=== PATIENT | female | born 1930 | race Caucasian/White ===

== ENCOUNTER → 2016-08-20 | Outpatient (CLI) | payer OTHER ==
[~2016-08-20] MED LIST: ACET-1175 PO; DONE1TAB26 PO; MIRA100T PO; POTA-74 PO; TRIATAB3 PO
[2016-08-20 18:36] LABS: BLOOD UREA NITROGEN 10 mg/dl (7-18); BUN/CREATININE RATIO 12.1 (10-20); CALCIUM 8.6 mg/dl (8.5-10.1); CARBON DIOXIDE 30 mmol/L (21-32); CHLORIDE 107 mmol/L (98-107); CREATININE 0.86 mg/dl (0.60-1.20); GLUCOSE 101 mg/dl (70-99); POTASSIUM 3.8 mmol/L (3.5-5.1); SODIUM 141 mmol/L (136-145)
== END | disposition home or self-care (01) ==
LOC: C.LABPVFM 14:12
PROVIDERS: ATTEND Nurse Practitioner
DX: I10 Essential (primary) hypertension (principal); L30.9 Dermatitis, unspecified

== ENCOUNTER → 2017-02-16 | Outpatient (CLI) | payer OTHER ==
[2017-02-16 17:45] LABS: BLOOD UREA NITROGEN 9 mg/dl (7-18); BUN/CREATININE RATIO 10.3 (10-20); CALCIUM 8.8 mg/dl (8.5-10.1); CARBON DIOXIDE 28 mmol/L (21-32); CHLORIDE 105 mmol/L (98-107); GLUCOSE 93 mg/dl (70-99); POTASSIUM 3.7 mmol/L (3.5-5.1); SODIUM 140 mmol/L (136-145)
== END | disposition home or self-care (01) ==
LOC: C.LABPVFM 10:21
PROVIDERS: ATTEND Nurse Practitioner
DX: I10 Essential (primary) hypertension (principal)

== ENCOUNTER → 2017-10-22 | Outpatient (CLI) | payer OTHER ==
--- NOTE | 2017-10-22 14:03 | DIAGNOSTIC IMAGING REPORT ---
L KNEE 2 VIEWS ROUTINE CLINICAL HISTORY: LEFT KNEE PAIN COMPARISON: None. DISCUSSION: No acute fractures or dislocations are visualized. There are mild osteoarthritic changes with mild medial joint compartment narrowing. There are no erosive or destructive changes. The bones are mildly osteopenic. There is an equivocal trace joint effusion. IMPRESSION: 1. Osteopenia 2. Mild degenerative change 3. No fractures identified Electronically signed by: Luciano Ramírez M.D. 10/22/2017 2:02 PM Dictated Date/Time: 10/22/2017 2:01 PM
== END | disposition home or self-care (01) ==
LOC: C.RADPV 13:36
PROVIDERS: ATTEND Family Medicine
DX: M25.562 Pain in left knee (principal); M85.862 Other specified disorders of bone density and structure, left lower leg

== ENCOUNTER 2018-04-23 15:18 | Inpatient (IN) ==
[2018-04-23] MEDS ORDERED: SODIUM CHLORIDE 0.9% 1000ML 1,000 ML IV SCH (15:30)
[2018-04-23 15:51] LABS: Basophils # (auto) 0.04 K/uL (0-0.2); Basophils % (auto) 0.5 %; Eosinophils # (auto) 0.07 K/uL (0-0.5); Hematocrit (blood only) 38.9 % (37-47); Hemoglobin 12.2 g/dL (12.0-16.0); Immature Granulocytes # (auto) 0.02 K/uL (0.00-0.02); Immature Granulocytes % (auto) 0.3 %; Lymphocytes # (auto) 1.92 K/uL (1.2-3.4); Lymphocytes % (auto) 26.1 %; Mean Corpuscular Hgb Conc 31.4 g/dL (32-36); Mean Corpuscular Volume 83.3 fL (80-100); Mean Platelet Volume 9.1 fL (7.4-10.4); Monocytes # (auto) 0.58 K/uL (0.11-0.59); Monocytes % (auto) 7.9 %; Neutrophils # (auto) 4.73 K/uL (1.4-6.5); Neutrophils % (auto) 64.2 %; Platelet Count 205 K/uL (130-400); RDW Coefficient of Variation 27.7 % (11.5-14.5); RDW Standard Deviation 79.2 fL (36.4-46.3); Red Blood Count 4.67 M/uL (4.2-5.4); White Blood Count 7.36 K/uL (4.8-10.8)
[2018-04-23] MEDS: MoRPHine SULFATE 2 MG/ML CARP IV PRN ×2 (15:51→16:57)
[2018-04-23 15:59] LABS: Partial Thromboplastin Ratio 0.9
[2018-04-23 16:07] LABS: Albumin Level 3.3 gm/dl (3.4-5.0); BUN Creatinine Ratio 14.8 (10-20); Calcium 8.7 mg/dl (8.5-10.1); Creatinine Clr Calc Pharmacy 48.4 ml/min; Est GFR (African American) 77.9; Est GFR (Non-African American) 67.2; Potassium 3.6 mmol/L (3.5-5.1)
[2018-04-23 16:09] LABS: Albumin Globulin Ratio 0.9 (0.9-2); Bilirubin,Total 0.4 mg/dl (0.2-1); Globulin 3.7 gm/dl (2.5-4.0)
[2018-04-23 16:13] LABS: Anisocytosis Present; Hypochromasia Present
--- NOTE | 2018-04-23 16:27 | XRay Report ---
XR hip RT 2-3V w pelvis HISTORY: 87 years-old Female fall, pain acute right hip pain status post fall COMPARISON: Pelvis radiographs 02/15/2018 TECHNIQUE: AP view of the pelvis with 2 views of the right hip FINDINGS: Limited study secondary to patient obesity and positioning. There are 3 cannulated screws noted about the left femoral neck. Demineralized appearance of the bones. There is acute fracture about the righ t femoral neck which appears to be transcervical with mild impaction. Moderate soft tissue swelling a bout the right hip. No acute fracture identified about the right hemipelvis. No associated dislocatio n. IMPRESSION: Acute transcervical fracture of the right femur with mild impaction. The above report was generated using voice recognition software. It may contain grammatical, syntax o r spelling errors. Electronically signed by: Cody Melara M.D. 04/23/2018 4:26 PM
--- NOTE | 2018-04-23 16:33 | XRay Report ---
XR chest 1V portable HISTORY: 87 years-old Female fall acute chest trauma status post fall. Acute atypical chest pain COMPARISON: Chest radiograph and CT abdomen and pelvis 02/23/2018 TECHNIQUE: Portable AP view of the chest FINDINGS: Cardiac silhouette is enlarged, unchanged. Moderate to large hiatal hernia. Calcification the thoraci c aortic arch. There is no pneumothorax, pleural effusion, focal airspace consolidation or overt pulm onary edema. Degenerative changes of the shoulders and spine. IMPRESSION: 1. Cardiomegaly without acute process. 2. Moderate to large hiatal hernia. The above report was generated using voice recognition software. It may contain grammatical, syntax o r spelling errors. Electronically signed by: Cody Melara M.D. 04/23/2018 4:32 PM
[2018-04-23 17:28] LABS: Appearance Urine Cloudy (Clear); Bacteria Urine Automated 4+ (Negative); Bilirubin Urine Negative (Negative); Color Urine Yellow; Epithelial Cell Urine Auto 20-30 /lpf (0-5); Glucose Urine UA Negative (Negative); Ketones Urine Negative (Negative); Leukocyte Esterase Urine 3+ (Negative); Nitrite Urine Positive (Negative); Protein Urine Negative (Negative); Specific Gravity Urine 1.018 (1.000-1.030); Urobilinogen Urine Negative (Negative); WBC Urine Automated >30 /hpf (0-5); pH Urine 5.5 (4.5-7.5)
--- NOTE | 2018-04-23 17:49 | History & Physical Report ---
Date of Service April 23, 2018 Assessment & Plan (1) Closed right hip fracture: This patient is an 87-year-old female with a history of HTN, hiatal hernia , chronic diarrhea, impaired fasting glucose, AAA, lone atrial fibrillation, and moderate-severe Alzheimer's dementia who presents to the ER after sustaining a fall in the bathroom which resulted in a right hip fracture. -Admit to medical/surgical floor -Discussed the case with the patient's , son, and orthopedic surgeon front desk clerk. and son in agreement that they only want her to have surgery if it will allow her to be able to walk with a walker again in a timely fashion. Orthopedic surgeon will come and speak with the family in the morning and review the case. -Typed and cross on admission, hemoglobin is stable at this time, will monitor CBC in the morning -Pain control with morphine as needed, Tylenol as needed -Bedrest -DVT prophylaxis with SCDs for now -Orthopedic surgery consulted-appreciate management (2) Chronic diarrhea: Doing very well on as needed noe stable-we will continue this (3) Impaired fasting glucose: Very mild, hemoglobin A1c 5.3% in 01/2018 -No need for Accu-Cheks (4) HTN (hypertension), benign: Blood pressures mildly elevated here secondary to pain and anxiety most likely -Continue home doses of Toprol XL 25 mill grams p.o. twice daily and losartan 100 mg p.o. every morning -Continue to monitor (5) AAA (abdominal aortic aneurysm): 3.1 cm on imaging previously -Can be followed as an outpatient if desired (6) Hyperlipidemia: Noted as a diagnosis but not on medication for this at this time (7) Hiatal hernia: Has a very large hiatal hernia but does not seem to cause her symptoms -No need for treatment at this point (8) Anemia: Upon admission in January, had severe iron deficiency anemia and required transfusion. She has been on ferrous sulfate ever since receiving those transfusions and her hemoglobin is much improved here at 12. -Follow CBC in case of acute blood loss from fracture as above (9) Alzheimer's disease: Moderate-severe in nature. Has been reports she has been sundowning a lot at home and has gotten more "defiant" in the last several weeks. She does eat well and he does get her to take her pills. PCP recently prescribed mirtazapine-he gave her 1 dose of this and reports that she had an opposite reaction to what he thought it would do-she became even more agitated -Would discontinue mirtazapine permanently -Consider using low doses of haloperidol p.o. as needed if becomes a danger to herself while hospitalized (10) Lone atrial fibrillation: Had a brief episode of atrial fibrillation during her last admission in the perioperative period that resolved on its own -She has been on metoprolol ever since She is in a normal sinus rhythm on admission ECG here -Monitor for recurrence but no need for telemetry monitoring at this time -No need for anticoagulation given fall risk and recent episode (11) DVT prophylaxis: SCDs Disposition-admit to medical/surgical floor and await orthopedic consultation Case management consulted as she will need placement- has been working on getting her into [facility] anyway prior to this hip fracture. DNR/DNI History of Present Illness Chief Complaint: Fall, hip pain Primary Care Provider: Yonny Cullen MD This patient is an 87-year-old female with a history of HTN, hiatal hernia, chronic diarrhea, impaired fasting glucose, AAA, lone atrial fibrillation, and moderate-severe Alzheimer's dementia who presents to the ER after sustaining a fall in the bathroom which resulted in a right hip fracture. Her is present at the bedside and gives the history as the patient has significant dementia and cannot give a history. He stated he helped her onto the toilet and she does get around with assistance with her walker. He went across the [place]jias to put dishes in the hand shoes sewer and then he heard her fall. She tried to get off the toilet and walk to her walker herself. They do not think she sustained any other injuries. Patient is unable to tell me if she has any headache, chest pain, shortness of breath, or any other joint pains. The patient was just admitted here for a fall with resulting in a left hip fracture and underwent repair at the end of 01/2018. She then went to [facility] for rehab and came home on 03/18/18. In the ER, she was found to have a transcervical fracture with impaction of the right hip. Her labs were otherwise within normal limits. ECG showed a lot of artifact she would not hold still, but appears to be normal sinus rhythm without ischemic changes. She will be admitted for right hip fracture. Allergies Allergy/AdvReac Type Severity Reaction Status Date / Time Sulfa (Sulfonamide Allergy Intermediate Hives Verified 04/23/18 17:26 Antibiotics) amoxicillin Allergy Unknown RASH, Verified 04/23/18 17:26 SWELLING - FACE & NECK Penicillins Allergy Unknown RASH, Verified 04/23/18 17:26 SWELLING Home Medications Home Medications Medication Instructions Recorded Confirmed Type colestipol 1 g PO BID 02/23/18 04/23/18 History hydrocolloid dressing [DuoDERM 1 dose TOPICAL UD 02/23/18 04/23/18 History Hydroactive] losartan 100 mg PO DAILY 02/23/18 04/23/18 History triamcinolone acetonide 1 applic TOPICAL TID 02/23/18 04/23/18 History acetaminophen [Tylenol] 325 mg PO Q6H PRN 04/23/18 04/23/18 History cholecalciferol (vitamin D3) 50,000 units PO WK 04/23/18 04/23/18 History ferrous sulfate 325 mg PO BID 04/23/18 04/23/18 History metoprolol succinate 25 mg PO BID 04/23/18 04/23/18 History mirtazapine 7.5 mg PO HS 04/23/18 04/23/18 History potassium chloride 10 meq PO BID 04/23/18 04/23/18 History Past Med/Surg History Medical History Rosacea Impaired fasting glucose History of uterine cancer Urinary incontinence HTN (hypertension), benign Hyperlipidemia AAA (abdominal aortic aneurysm) Infrarenal, 3.5cm Hiatal hernia Per CT scan significant portion of stomach in chest Anemia Alzheimer's disease (Chronic) Lone atrial fibrillation Chronic diarrhea Surgical History History of hysterectomy Status post-operative repair of closed fracture of left hip Family History Other Family history non-contributory Social History marital status: Current Living Situation: Spouse Feels Safe at Home: Yes Smoking Status: Never smoker Second Hand Exposure: No Hx Alcohol Use: No Hx Substance Use: No Beliefs That Will Affect Care: None Preferred Language: Azeri Review of Systems Unobtainable due to cognitive status Physical Exam 2 Vital Signs (Past 24 Hours): Last Vital Signs Pulse 100 H 04/23/18 17:13 Resp 24 04/23/18 17:13 BP 188/100 H 04/23/18 17:13 Pulse Ox 92 04/23/18 17:13 Constitutional: WD/WN, vitals as above (Appears tearful, confused) Eyes: PERRL, conjunctivae normal, anicteric sclerae ENMT: external ear and nose normal, oropharynx normal Neck: trachea midline, no thyromegaly Respiratory: normal respiratory effort, lungs clear to auscultation Cardiovascular: RRR, no murmur, no edema Gastrointestinal (Abdomen): normal bowel sounds, soft, nontender, no hepatosplenomegaly Musculoskeletal: Extremities: + extremities abnormal to inspection (Right hip with mild edema, positive tenderness to palpation), no cyanosis and no clubbing Otherwise, no tenderness to palpation over shoulders, elbows, wrists and hands, left hip, knees, ankles, and feet, no effusions or ecchymosis Skin: no rashes, warm and dry Neurologic: moves all extremities and awake; no focal motor deficits Psychiatric: Orientation: alert; + not oriented to person, + not oriented to place and + not oriented to time Eye Contact: + fair eye contact Affect: + flat affect Insight: + severely impaired insight Genitourinary: Nuñez catheter in place Results & Data Laboratory Results 04/23/18 04/23/18 04/23/18 Range/Units 17:09 16:11 15:42 WBC (4.8-10.8) K/uL RBC (4.2-5.4) M/uL Hgb (12.0-16.0) g/dL Hct (37-47) % MCV (80-100) fL MCH (25-34) pg MCHC (32-36) g/dL RDW Std Deviation (36.4-46.3) fL RDW Coeff of August (11.5-14.5) % Plt Count (130-400) K/uL MPV (7.4-10.4) fL Immature Gran % (Auto) % Neut % (Auto) % Lymph % (Auto) % [place] % (Auto) % Eos % (Auto) % Baso % (Auto) % Immature Gran # (Auto) (0.00-0.02) K/uL Neut # (Auto) (1.4-6.5) K/uL Lymph # (Auto) (1.2-3.4) K/uL [place] # (Auto) (0.11-0.59) K/uL Eos # (Auto) (0-0.5) K/uL Baso # (Auto) (0-0.2) K/uL Hypochromasia Anisocytosis PT (9.0-12.0) Seconds INR (0.9-1.1) APTT (21.0-31.0) Seconds PTT Ratio Sodium 140 (136-145) mmol/L Potassium 3.6 (3.5-5.1) mmol/L Chloride 108 H (98-107) mmol/L Carbon Dioxide 32 (21-32) mmol/L Anion Gap 0 L (3-11) BUN 12 (7-18) mg/dl Creatinine 0.80 (0.6-1.2) mg/dl Est Cr Clr Drug Dosing 48.4 ml/min Est GFR ( Amer) 77.9 Est GFR (Non-Af Amer) 67.2 BUN/Creatinine Ratio 14.8 (10-20) Glucose 101 H (70-99) mg/dl Calcium 8.7 (8.5-10.1) mg/dl Total Bilirubin 0.4 (0.2-1) mg/dl AST 19 (15-37) U/L ALT 18 (12-78) U/L Alkaline Phosphatase 100 (45-117) U/L Total Protein 7.0 (6.4-8.2) gm/dl Albumin 3.3 L (3.4-5.0) gm/dl Globulin 3.7 (2.5-4.0) gm/dl Albumin/Globulin Ratio 0.9 (0.9-2) Urine Color Yellow Urine Appearance Cloudy H (Clear) Urine pH 5.5 (4.5-7.5) Ur Specific [place] 1.018 (1.000-1.030) Urine Protein Negative (Negative) Urine Glucose (UA) Negative (Negative) Urine Ketones Negative (Negative) Urine Blood 2+ H (Negative) Urine Nitrite Positive H (Negative) Urine Bilirubin Negative (Negative) Urine Urobilinogen Negative (Negative) Ur Leukocyte Esterase 3+ H (Negative) Urine WBC (Auto) >30 H (0-5) /hpf Urine RBC (Auto) 10-30 H (0-4) /hpf U Hyaline Cast (Auto) 1-5 (0-5) /lpf U Epithel Cells (Auto) 20-30 H (0-5) /lpf Urine Bacteria (Auto) 4+ H (Negative) Blood Type O Positive Antibody Screen NEGATIVE 04/23/18 04/23/18 Range/Units 15:42 15:42 WBC 7.36 (4.8-10.8) K/uL RBC 4.67 (4.2-5.4) M/uL Hgb 12.2 (12.0-16.0) g/dL Hct 38.9 (37-47) % MCV 83.3 (80-100) fL MCH 26.1 (25-34) pg MCHC 31.4 L (32-36) g/dL RDW Std Deviation 79.2 H (36.4-46.3) fL RDW Coeff of August 27.7 H (11.5-14.5) % Plt Count 205 (130-400) K/uL MPV 9.1 (7.4-10.4) fL Immature Gran % (Auto) 0.3 % Neut % (Auto) 64.2 % Lymph % (Auto) 26.1 % [place] % (Auto) 7.9 % Eos % (Auto) 1.0 % Baso % (Auto) 0.5 % Immature Gran # (Auto) 0.02 (0.00-0.02) K/uL Neut # (Auto) 4.73 (1.4-6.5) K/uL Lymph # (Auto) 1.92 (1.2-3.4) K/uL [place] # (Auto) 0.58 (0.11-0.59) K/uL Eos # (Auto) 0.07 (0-0.5) K/uL Baso # (Auto) 0.04 (0-0.2) K/uL Hypochromasia Present Anisocytosis Present PT 10.0 (9.0-12.0) Seconds INR 1.0 (0.9-1.1) APTT 24.0 (21.0-31.0) Seconds PTT Ratio 0.9 Sodium (136-145) mmol/L Potassium (3.5-5.1) mmol/L Chloride (98-107) mmol/L Carbon Dioxide (21-32) mmol/L Anion Gap (3-11) BUN (7-18) mg/dl Creatinine (0.6-1.2) mg/dl Est Cr Clr Drug Dosing ml/min Est GFR ( Amer) Est GFR (Non-Af Amer) BUN/Creatinine Ratio (10-20) Glucose (70-99) mg/dl Calcium (8.5-10.1) mg/dl Total Bilirubin (0.2-1) mg/dl AST (15-37) U/L ALT (12-78) U/L Alkaline Phosphatase (45-117) U/L Total Protein (6.4-8.2) gm/dl Albumin (3.4-5.0) gm/dl Globulin (2.5-4.0) gm/dl Albumin/Globulin Ratio (0.9-2) Urine Color Urine Appearance (Clear) Urine pH (4.5-7.5) Ur Specific [place] (1.000-1.030) Urine Protein (Negative) Urine Glucose (UA) (Negative) Urine Ketones (Negative) Urine Blood (Negative) Urine Nitrite (Negative) Urine Bilirubin (Negative) Urine Urobilinogen (Negative) Ur Leukocyte Esterase (Negative) Urine WBC (Auto) (0-5) /hpf Urine RBC (Auto) (0-4) /hpf U Hyaline Cast (Auto) (0-5) /lpf U Epithel Cells (Auto) (0-5) /lpf Urine Bacteria (Auto) (Negative) Blood Type Antibody Screen Diagnostic Findings Hip/pelvis x-ray personally reviewed by me and agree with the following report: XR hip RT 2-3V w pelvis HISTORY: 87 years-old Female fall, pain acute right hip pain status post fall COMPARISON: Pelvis radiographs 02/15/2018 TECHNIQUE: AP view of the pelvis with 2 views of the right hip FINDINGS: Limited study secondary to patient obesity and positioning. There are 3 cannulated screws noted about the left femoral neck. Demineralized appearance of the bones. There is acute fracture about the right femoral neck which appears to be transcervical with mild impaction. Moderate soft tissue swelling about the right hip. No acute fracture identified about the right hemipelvis. No associated dislocation. IMPRESSION: Acute transcervical fracture of the right femur with mild impaction. XR chest 1V portable HISTORY: 87 years-old Female fall acute chest trauma status post fall. Acute atypical chest pain COMPARISON: Chest radiograph and CT abdomen and pelvis 02/23/2018 TECHNIQUE: Portable AP view of the chest FINDINGS: Cardiac silhouette is enlarged, unchanged. Moderate to large hiatal hernia. Calcification the thoracic aortic arch. There is no pneumothorax, pleural effusion, focal airspace consolidation or overt pulmonary edema. Degenerative changes of the shoulders and spine. IMPRESSION: 1. Cardiomegaly without acute process. 2. Moderate to large hiatal hernia. Code Status & VTE Plan Code Status DNR/DNI as per discussion with who is her decision maker VTE Prophylaxis Plan VTE Prophylaxis will be ordered: Yes Reason for no VTE drug order: Contraindicated (In case of need for surgery) _ (1) AAA (abdominal aortic aneurysm) Presence of rupture: without rupture Qualified Code(s): I71.4 - Abdominal aortic aneurysm, without rupture (2) Hyperlipidemia Hyperlipidemia type: unspecified Qualified Code(s): E78.5 - Hyperlipidemia, unspecified (3) Anemia Anemia type: iron deficiency Iron deficiency anemia type: unspecified iron deficiency Vitamin B12 deficiency anemia type: Folate deficiency anemia type : Bone marrow failure anemia type: Hemolytic anemia type: Other causes of anemia: Chronic kidney disease stage: Qualified Code(s): D50.9 - Iron deficiency anemia, unspecified (4) Alzheimer's disease Alzheimer's disease onset: late-onset Dementia behavioral disturbance: with behavioral disturbance Qualified Code(s): G30.1 - Alzheimer's disease with late onset; F02.81 - Dementia in other diseases classified elsewhere with behavioral disturbance (5) Closed right hip fracture Encounter type: initial encounter Qualified Code(s): S72.001A - Fracture of unspecified part of neck of right femur, initial encounter for closed fracture
[2018-04-23] MEDS ORDERED: ACETAMINOPHEN 325 MG TAB PO PRN ×2 (19:14)
[2018-04-23] MEDS ORDERED: SOD PHOSPHATE/SOD BIPHOSPHATE ENEMA 132 ML BTL PR PRN (19:14)
[2018-04-23] MEDS ORDERED: MAGNESIUM HYDROXIDE SUSP 30 ML UDC PO PRN (19:14)
[2018-04-23] MEDS ORDERED: ONDANSETRON INJ 2 MG/ML 2 ML VIAL IV PRN (19:14)
[2018-04-23] MEDS ORDERED: NALOXONE HCL 0.4 MG/1 ML VIAL/CARP IV PRN (19:14)
[2018-04-23] MEDS ORDERED: BISACODYL 10 MG SUPP PR PRN (19:14)
[2018-04-23] MEDS ORDERED: COLESTIPOL HCL 1 GM TAB PO PRN (19:14)
[2018-04-23] MEDS ORDERED: MoRPHine SULFATE 2 MG/ML CARP IV PRN (19:14)
--- NOTE | 2018-04-23 19:56 | Orthopedic Consultation ---
Date of Consultation April 23, 2018 Assessment & Plan (1) Closed right hip fracture: IMPRESSION: Right hip femoral neck fracture, impacted, closed, initial visit. PLAN: After a lengthy discussion with the patient and her family today regarding my above clinical findings, as well as reviewing the radiographs, their treatment options of conservative versus surgical intervention were discussed. They understand that due to her dementia, postoperative care will be difficult. But they would like to control her pain and since the patient was an ambulatory with a walker prior to their injury and to avoid the risks of bed sores, pulmonary complications, and to give them the best chance for ambulation, they elected to proceed with surgery. The patient and their family understands the risks of surgery, which include but are not limited to: bleeding , infection, re-operation, damage to nerves and arteries, continued pain, failure of the hardware, mal-union, non-union, DVT, and . In addition the patient is aware of the 20-30% morbidity associated with hip fracture for up to 1 year following a hip fracture. The patient understands all of these instructions and explanations, all of their questions have been satisfactorily addressed. The patient has elected to proceed with surgery and the informed consent was signed as well as the leg initial. She was placed on the add-on schedule for tomorrow morning as long as she remains medically cleared to proceed with surgery. She will be NPO after midnight. Thank you for me to participate in this patient's care. Present on Admission?: Yes History of Present Illness Reason for Consultation: Right hip fracture. Attending Physician: Janis Llamas MD History of Present Illness Patient is an 87-year-old female, who fell while attempting to get up on her own earlier today, injuring her right hip. She came to the emergency room where x-rays were obtained she was found to have an impacted right femoral neck fracture. She is roughly 2 months out from close reduction percutaneous pinning of left hip fracture by Dr. Varner. He is out of town. I was consult did for further evaluation and treatment. Allergies Allergy/AdvReac Type Severity Reaction Status Date / Time Sulfa (Sulfonamide Allergy Intermediate Hives Verified 04/23/18 17:26 Antibiotics) amoxicillin Allergy Unknown RASH, Verified 04/23/18 17:26 SWELLING - FACE & NECK Penicillins Allergy Unknown RASH, Verified 04/23/18 17:26 SWELLING Home Medications Home Medications Medication Instructions Recorded Confirmed Type colestipol 1 g PO BID 02/23/18 04/23/18 History hydrocolloid dressing [DuoDERM 1 dose TOPICAL UD 02/23/18 04/23/18 History Hydroactive] losartan 100 mg PO DAILY 02/23/18 04/23/18 History triamcinolone acetonide 1 applic TOPICAL TID 02/23/18 04/23/18 History acetaminophen [Tylenol] 325 mg PO Q6H PRN 04/23/18 04/23/18 History cholecalciferol (vitamin D3) 50,000 units PO WK 04/23/18 04/23/18 History ferrous sulfate 325 mg PO BID 04/23/18 04/23/18 History metoprolol succinate 25 mg PO BID 04/23/18 04/23/18 History mirtazapine 7.5 mg PO HS 04/23/18 04/23/18 History potassium chloride 10 meq PO BID 04/23/18 04/23/18 History Patient History Medical History Rosacea Impaired fasting glucose History of uterine cancer Urinary incontinence HTN (hypertension), benign Hyperlipidemia AAA (abdominal aortic aneurysm) Infrarenal, 3.5cm Hiatal hernia Per CT scan significant portion of stomach in chest Anemia Alzheimer's disease (Chronic) Lone atrial fibrillation Chronic diarrhea Surgical History History of hysterectomy Status post-operative repair of closed fracture of left hip Family History Other Family history non-contributory Social History marital status: Current Living Situation: Spouse Feels Safe at Home: Yes Safety Concerns: Feels Safe At This Time Smoking Status: Never smoker Second Hand Exposure: No Hx Alcohol Use: No Hx Substance Use: No Beliefs That Will Affect Care: None Preferred Language: Yi Communication Ability: Impaired Appeals Board Referee Required: No Review of Systems A 10-point review of systems is noted in the shared medical record. Physical Exam 2 Vital Signs (Past 24 Hours): Last Vital Signs Temp 36.7 C 04/23/18 19:17 Pulse 72 04/23/18 19:17 Resp 20 04/23/18 19:17 BP 158/88 H 04/23/18 19:17 Pulse Ox 96 04/23/18 19:17 Physical Exam: The patient is resting comfortably in her hospital bed. Focusing on her right lower extremity, she is able to wiggle her toes and ankle up and down. Her sensation light touch is intact distally. Brisk cap refill less than 2 seconds. Her calf is soft and non-tender. She has pain with gentle log roll of hip. Results & Data Diagnostic Findings RADIOGRAPHS: Several views of the right hip and pelvis, show a valgus impacted femoral neck fracture and evidence of recent left hip CRPP. _ (1) Closed right hip fracture Encounter type: initial encounter Fracture healing: Qualified Code(s): S72.001A - Fracture of unspecified part of neck of right femur, initial encounter for closed fracture
[2018-04-23] MEDS: CIPROFLOXACIN 400 MG/200 ML BAG IV SCH (21:07)
[2018-04-23] MEDS: METOPROLOL SUCC 25MG EXT REL TAB PO SCH (21:17)
[2018-04-23] MEDS: FERROUS SULFATE 325 MG TAB PO SCH (21:19)
[2018-04-23] MEDS: DOCUSATE SODIUM/SENNA 50/8.6MG TAB PO SCH (21:19)
[2018-04-23] MEDS: D5W AND 1/2NSS 1,000 ML IV SCH (22:47)
[2018-04-24 05:17] LABS: Basophils # (auto) 0.02 K/uL (0-0.2); Basophils % (auto) 0.3 %; Eosinophils # (auto) 0.05 K/uL (0-0.5); Eosinophils % (auto) 0.7 %; Hematocrit (blood only) 37.2 % (37-47); Hemoglobin 11.7 g/dL (12.0-16.0); Immature Granulocytes # (auto) 0.02 K/uL (0.00-0.02); Immature Granulocytes % (auto) 0.3 %; Lymphocytes # (auto) 1.63 K/uL (1.2-3.4); Lymphocytes % (auto) 24.4 %; Mean Corpuscular Hgb Conc 31.5 g/dL (32-36); Mean Corpuscular Volume 82.5 fL (80-100); Mean Platelet Volume 9.5 fL (7.4-10.4); Monocytes # (auto) 0.91 K/uL (0.11-0.59); Monocytes % (auto) 13.6 %; Neutrophils # (auto) 4.05 K/uL (1.4-6.5); Neutrophils % (auto) 60.7 %; Platelet Count 179 K/uL (130-400); RDW Standard Deviation 76.5 fL (36.4-46.3); Red Blood Count 4.51 M/uL (4.2-5.4); White Blood Count 6.68 K/uL (4.8-10.8)
[2018-04-24 05:43] LABS: BUN Creatinine Ratio 14.1 (10-20); Calcium 8.3 mg/dl (8.5-10.1); Creatinine Clr Calc Pharmacy 54.5 ml/min; Est GFR (Non-African American) 77.7; Magnesium 2.1 mg/dl (1.8-2.4); Potassium 3.5 mmol/L (3.5-5.1)
[2018-04-24 05:53] LABS: Anisocytosis Present; Hypochromasia Present
[2018-04-24] MEDS ORDERED: CLINDAMYCIN 900 MG in DEXTROSE 5% 100 ML IV SCH (06:00)
[2018-04-24] MEDS ORDERED: CLINDAMYCIN 600 MG/54 ML BAG IV SCH ×2 (06:00)
[2018-04-24] MEDS: HydrALAZINE HCL 20 MG/ML VIAL IV PRN ×2 (07:01→14:05)
[2018-04-24] MEDS ORDERED: fentaNYL citrate 100 MCG/2 ML VIAL ONE (07:18)
[2018-04-24] MEDS ORDERED: PROPOFOL IV EMULSION 10 MG/ML 20 ML VIAL IV ONE (07:18)
[2018-04-24] MEDS ORDERED: MIDAZOLAM HCL 1 MG/ML 2ML VIAL ONE (07:23)
[2018-04-24] MEDS ORDERED: MoRPHine SULFATE 4 MG/ML 1 ML CARP\\VIAL ONE (07:37)
[2018-04-24] MEDS: CIPROFLOXACIN 400 MG/200 ML BAG IV SCH ×2 (08:08→20:21)
[2018-04-24] MEDS: LOSARTAN POTASSIUM 50 MG TAB PO SCH (08:09)
[2018-04-24] MEDS: FERROUS SULFATE 325 MG TAB PO SCH ×2 (08:09→20:20)
[2018-04-24] MEDS: METOPROLOL SUCC 25MG EXT REL TAB PO SCH ×2 (08:09→20:20)
--- NOTE | 2018-04-24 08:35 | Hospitalist Progress Note ---
Date of Service April 24, 2018 Assessment & Plan (1) Closed right hip fracture: This patient is an 87-year-old female with a history of HTN, hiatal hernia , chronic diarrhea, impaired fasting glucose, AAA, lone atrial fibrillation, and moderate-severe Alzheimer's dementia who presents to the ER after sustaining a fall in the bathroom which resulted in a right hip fracture. Per admitting physicians note " and son in agreement that they only want her to have surgery if it will allow her to be able to walk with a walker again in a timely fashion. Orthopedic surgeon has spoken with family and taken the patient for closed reduction and pinning 04/24 -Pain control with morphine as needed, Tylenol as needed -DVT prophylaxis with SCDs for now (2) Chronic diarrhea: has been stable on cholestipol (3) Impaired fasting glucose: Very mild, hemoglobin A1c 5.3% in 01/2018 -No need for Accu-Cheks (4) HTN (hypertension), benign: Blood pressures mildly elevated here secondary to pain and anxiety most likely -Continue Toprol XL 25 bid and losartan 100 mg p.o. every morning We will have some as needed clonidine available (5) AAA (abdominal aortic aneurysm): 3.1 cm on imaging previously (6) Hyperlipidemia: Noted as a diagnosis but not on medication for this at this time (7) Hiatal hernia: Has a very large hiatal hernia but does not seem to cause her symptoms (8) Anemia: Upon admission in January, had severe iron deficiency anemia and required transfusion. She has been on ferrous sulfate ever since receiving those transfusions and her hemoglobin is much improved here at 12. (9) Alzheimer's disease: Moderate-severe in nature. Has been reports she has been sundowning a lot at home and has gotten more "defiant" in the last several weeks. She does eat well and he does get her to take her pills. PCP recently prescribed mirtazapine-he gave her 1 dose of this and reports that she had an opposite reaction to what he thought it would do-she became even more agitated therefore discontinue mirtazapine permanently -Consider using low doses of haloperidol p.o. or hs serouel as needed if becomes a danger to herself while hospitalized (10) Lone atrial fibrillation: Had a brief episode of atrial fibrillation during her last admission in the perioperative period that resolved on its own -She has been on metoprolol ever since She is in a normal sinus rhythm on admission ECG here -Monitor for recurrence but no need for telemetry monitoring at this time -No need for anticoagulation given fall risk and recent episode (11) DVT prophylaxis: SCDs Case management consulted as she will need placement- has been working on getting her into [facility] anyway prior to this hip fracture. DNR/DNI Subjective She was seen postoperatively in the recovery phase she was awake alert answering questions she is not oriented she has baseline dementia she had no focal complaints or problems. I also spoke to the in the waiting room he was updated biggest challenge will be rehabilitation with the degree of her dementia Review of Systems Unobtainable due to cognitive status Physical Exam 2 Vital Signs (Past 24 Hours): Last Vital Signs Temp 36.3 C L 04/24/18 06:52 Pulse 74 04/24/18 07:34 Resp 22 04/24/18 07:34 BP 175/68 H 04/24/18 07:34 Pulse Ox 93 04/24/18 07:34 The patient appeared well nourished and normally developed. Vital signs as documented. Slightly hypertensive postoperatively Head exam is unremarkable. normocephalic, atraumatic Neck is without jugular venous distension, thyromegaly, or lymphademopathy Lungs are clear to auscultation and percussion. Cardiac exam reveals Rhythm is regular. First and second heart sounds normal. Abdominal exam reveals normal bowel sounds, no masses, no organomegaly This extremities are warm to touch good capillary refill Neurologic exam is A&Ox2, no focal deficits, strength is equal bilateral Skin is warm Dry without bruises or lesions _ (1) AAA (abdominal aortic aneurysm) Presence of rupture: without rupture Qualified Code(s): I71.4 - Abdominal aortic aneurysm, without rupture (2) Alzheimer's disease Alzheimer's disease onset: late-onset Dementia behavioral disturbance: with behavioral disturbance Qualified Code(s): G30.1 - Alzheimer's disease with late onset; F02.81 - Dementia in other diseases classified elsewhere with behavioral disturbance (3) Anemia Anemia type: iron deficiency Bone marrow failure anemia type: Chronic kidney disease stage: Folate deficiency anemia type: Hemolytic anemia type: Iron deficiency anemia type: unspecified iron deficiency Other causes of anemia: Vitamin B12 deficiency anemia type: Qualified Code(s): D50.9 - Iron deficiency anemia, unspecified (4) Hyperlipidemia Hyperlipidemia type: unspecified Qualified Code(s): E78.5 - Hyperlipidemia, unspecified (5) Closed right hip fracture Encounter type: initial encounter Fracture healing: Qualified Code(s): S72.001A - Fracture of unspecified part of neck of right femur, initial encounter for closed fracture
[2018-04-24] MEDS ORDERED: LIDOCAINE/EPINEPHRINE 1% 20 ML VIAL ONE (09:45)
[2018-04-24] MEDS ORDERED: BUPIVACAINE/EPINEPHRINE 0.5% MPF 1:200,000 30 ML VIAL ONE (09:45)
--- NOTE | 2018-04-24 10:03 | Orthopedic Progress Note ---
Date of Service April 24, 2018 Assessment & Plan (1) Closed right hip fracture: IMPRESSION: Right hip femoral neck fracture, impacted, closed. PLAN: Medically cleared to proceed with surgery today. She has been NPO since midnight. Abx on-call to OR. Subjective Right hip pain Physical Exam 2 Vital Signs (Past 24 Hours): Last Vital Signs Temp 36.3 C L 04/24/18 06:52 Pulse 74 04/24/18 07:34 Resp 22 04/24/18 07:34 BP 182/63 H 04/24/18 08:25 Pulse Ox 93 04/24/18 07:34 Physical Exam: RLE: NV intact. Calf soft and non-tender. _ (1) Closed right hip fracture Encounter type: initial encounter Fracture healing: Qualified Code(s): S72.001A - Fracture of unspecified part of neck of right femur, initial encounter for closed fracture
[2018-04-24] MEDS ORDERED: KETAMINE HCL INJ 50 MG/ML 10 ML VIAL ONE (10:12)
--- NOTE | 2018-04-24 10:45 | Anesthesiology Consultation ---
Date of Service April 24, 2018 Assessment & Plan Chart Review Chart Review: Acceptable Risk for Surgery Consults Requested none ASA ASA3 Proposed Anesthesia Anesthesia Type: Spinal Risk / Benefits Reviewed With: PT / POA / Parent / Guardian NPO Date Last Intake of Fluids: 04/23/18 Time Last Intake of Fluids: 11:00 Date Last Intake of Solids: 04/23/18 Time Last Intake of Solids: 11:00 History Surgery Operation Date: 04/24/18 10:00 Proposed Procedures p ORIF Hip Cannulated Screw(Right) - Emre Kraig Jerry MD Height/Weight Height: 5 ft 3 in Weight: 70.4 kg Allergies Allergy/AdvReac Type Severity Reaction Status Date / Time Sulfa (Sulfonamide Allergy Intermediate Hives Verified 04/23/18 17:26 Antibiotics) amoxicillin Allergy Unknown RASH, Verified 04/23/18 17:26 SWELLING - FACE & NECK Penicillins Allergy Unknown RASH, Verified 04/23/18 17:26 SWELLING Medications Home Medications Medication Instructions Recorded Confirmed Last Taken colestipol 1 g PO BID 02/23/18 04/23/18 Unknown hydrocolloid dressing [DuoDERM 1 dose TOPICAL UD 02/23/18 04/23/18 Unknown Hydroactive] losartan 100 mg PO DAILY 02/23/18 04/23/18 Unknown triamcinolone acetonide 1 applic TOPICAL TID 02/23/18 04/23/18 Unknown acetaminophen [Tylenol] 325 mg PO Q6H PRN 04/23/18 04/23/18 Unknown cholecalciferol (vitamin D3) 50,000 units PO WK 04/23/18 04/23/18 Unknown ferrous sulfate 325 mg PO BID 04/23/18 04/23/18 Unknown metoprolol succinate 25 mg PO BID 04/23/18 04/23/18 Unknown mirtazapine 7.5 mg PO HS 04/23/18 04/23/18 Unknown potassium chloride 10 meq PO BID 04/23/18 04/23/18 Unknown Active Medications Generic Name Dose Route Start Last Admin Trade Name Freq PRN Reason Stop Dose Admin Ferrous Sulfate 325 mg 04/23/18 21:00 04/24/18 08:09 Feosol PO 05/23/18 20:59 Not Given BID JAYME Hydralazine HCl 10 mg 04/23/18 19:17 04/24/18 07:01 Hydralazine Hcl IV 05/23/18 19:16 10 mg Q6 PRN Administration SBP>180 Dextrose/Sodium Chloride 1,000 mls @ 75 mls/hr 04/23/18 23:59 04/24/18 06:32 D5w And 1/2nss IV 05/23/18 23:58 75 mls/hr .[id number] JAYME Infusion Ciprofloxacin 400 mg in 200 mls @ 100 mls/hr 04/23/18 21:00 04/24/18 10:14 Cipro IV 04/28/18 20:59 Infused Q12H JAYME Infusion Protocol Losartan Potassium 100 mg 04/24/18 09:00 04/24/18 08:09 Cozaar PO 05/24/18 08:59 100 mg DAILY JAYME Administration Metoprolol Succinate 25 mg 04/23/18 21:00 04/24/18 08:09 Toprol Xl PO 05/23/18 20:59 25 mg BID JAYME Administration Miscellaneous 1 ea 04/24/18 00:00 04/24/18 07:08 Order Awaiting Action N/A 05/24/18 00:00 Not Given QS JAYME Senna/Docusate Sodium 2 tab 04/23/18 21:00 04/23/18 21:19 Senokot S PO 05/23/18 20:59 Not Given HS JAYME Past Medical History Medical History Rosacea Impaired fasting glucose History of uterine cancer Urinary incontinence HTN (hypertension), benign Hyperlipidemia AAA (abdominal aortic aneurysm) Infrarenal, 3.5cm Hiatal hernia Per CT scan significant portion of stomach in chest Anemia Alzheimer's disease (Chronic) Lone atrial fibrillation Chronic diarrhea Past Family History Family History Other Family history non-contributory Past Surgical History Surgical History History of hysterectomy Status post-operative repair of closed fracture of left hip Social History Smoking Status: Never smoker Hx Alcohol Use: No Hx Substance Use: No substance use type: does not use Physical Exam Vital Signs Last Vital Signs Temp 36.3 C L 04/24/18 06:52 Pulse 74 04/24/18 07:34 Resp 22 01/27/19 07:34 BP 182/63 H 04/24/18 08:25 Pulse Ox 93 04/24/18 07:34 Testing Laboratory Results 04/24/18 04:56 04/24/18 04:56 Blood Type O Positive 04/23/18 16:11 Antibody Screen NEGATIVE 04/23/18 16:11 PT 10.0 Seconds (9.0-12.0) 04/23/18 15:42 INR 1.0 (0.9-1.1) 04/23/18 15:42 APTT 24.0 Seconds (21.0-31.0) 04/23/18 15:42 Urine Color Yellow 04/23/18 17:09 Urine Appearance Cloudy (Clear) H 04/23/18 17:09 Urine pH 5.5 (4.5-7.5) 04/23/18 17:09 Ur Specific [place] 1.018 (1.000-1.030) 04/23/18 17:09 Urine Protein Negative (Negative) 04/23/18 17:09 Urine Glucose (UA) Negative (Negative) 04/23/18 17:09 Urine Ketones Negative (Negative) 04/23/18 17:09 Urine Nitrite Positive (Negative) H 04/23/18 17:09 Ur Leukocyte Esterase 3+ (Negative) H 04/23/18 17:09 Urine WBC (Auto) >30 /hpf (0-5) H 04/23/18 17:09 Urine RBC (Auto) 10-30 /hpf (0-4) H 04/23/18 17:09 U Hyaline Cast (Auto) 1-5 /lpf (0-5) 04/23/18 17:09 U Epithel Cells (Auto) 20-30 /lpf (0-5) H 04/23/18 17:09 Urine Bacteria (Auto) 4+ (Negative) H 04/23/18 17:09
[2018-04-24] MEDS ORDERED: ATROPINE SULFATE 0.1 MG/ML 10ML SYR IV PRN (10:46)
[2018-04-24] MEDS ORDERED: ePHEDrine sulfate 50 MG/ML AMP IV PRN (10:46)
--- NOTE | 2018-04-24 11:40 | Fluoroscopy Report ---
FL hip RT 2-3V CLINICAL HISTORY: 87 years-old Female presenting with RIGHT HIP PINNING. TECHNIQUE: 2 fluoroscopic image(s) recorded as part of an intraoperative procedure. COMPARISON: 04/23/2018. FINDINGS/IMPRESSION: 3 cannula screw fixation of the right femoral neck. Right femoral head remains congruent in the aceta bulum. Please see surgical report for further details. Fluoroscopy dosage (mGy): 9.51. Fluoroscopy time: 34.1 seconds. Number or time of fluoroscopic spot images: 0. Electronically signed by: Topher Downey M.D. 04/24/2018 11:38 AM
--- NOTE | 2018-04-24 11:44 | Post Operative Brief Note ---
Immediate Post Op Note v1 Date of Surgery April 24, 2018 Pre & Post Diagnosis Operation Date: 04/24/18 10:00 Pre-Op Diagnosis: Right Hip Fracture Post-Op Diagnosis: Right Hip Fracture Procedure Operation Date: 04/24/18 10:00 Actual Procedures p Closed Reduction Percutaneous Pinning Right Hip Fracture(Right) - Emre Jerry MD Surgeon Emre Jerry MD Tire Fixer Lalito Hagen PA-C (No fellow avail) Estimated Blood Loss 20 Findings Consistent with Post-Op Diagnosis Fluids 500 cc Drains Nuñez Catheter Anesthesia Type Spinal Complications none
--- NOTE | 2018-04-24 11:45 | Operative Report ---
Post Operative Report Pre & Post Diagnosis Operation Date: 04/24/18 10:00 Pre-Op Diagnosis: Right Hip Fracture Post-Op Diagnosis: Right Hip Fracture Procedure Operation Date: 04/24/18 10:00 Actual Procedures p Closed Reduction Percutaneous Pinning Right Hip Fracture(Right) - Emre Jerry MD Surgeon Emre Jerry MD Dry Goods Inspector Lalito Hagen PA-C (No fellow avail) Estimated Blood Loss 20 Findings See Below Right femoral neck hip fracture, valgus impacted Fluids 500 cc Specimens n/a Anesthesia Type Spinal Complications none Indications The patient is a 87 year old female who sustained a right femoral neck, hip fracture. Their treatment options of conservative versus surgical intervention were discussed. Since the patient was an ambulatory with a walker prior to their injury and to avoid the risks of bed sores, pulmonary complications, and to give them the best chance for ambulation, her family wished to proceed with surgery. The patient and their family understands the risks of surgery, which include but are not limited to: bleeding, infection, re-operation, damage to nerves and arteries, continued pain, failure of the hardware, mal-union, non- union, DVT, and . Due to their medical problems and dementia the patient and their family understand that the patient her postoperative care may be difficult. In addition the patient is aware of the 20-30% morbidity associated with hip fracture for up to 1 year following a hip fracture. The patient understands all of these instructions and explanations, all of their questions have been satisfactorily addressed. The patient has elected to proceed with surgery and the informed consent was signed. Description of Procedure IMPLANTS: 1) 7.3 MM CANNULATED SCREW, SHORT THREADS 80 MM x 3 (SYNTHES). Description of Procedure The patient was taken to the Operating Room and placed in the supine position on the fracture table after spinal anesthesia was administered. A multidisciplinary time-out was performed identifying my initials on the right lower limb as the correct and operative limb. Prior to the incision being made , 600 mg of intravenous clindamycin was given. Fluoroscopy was brought in to ensure adequate x-rays images could be obtained. No reduction was necessary as the femoral neck fracture was impacted and remained in its alignment with placement of the patient on the fracture table. Once this was confirmed with Fluro, the right lower extremity was prepped in the standard fashion. The trochanter was marked as was the planned incision. The incision was injected with a 50:50 mixture of 1% Lidocaine with epinephrine and 0.5% Marcaine plain for a total of 10cc. The planned incision was carried down through the Tensor Fascia Loren to expose the greater trochanter and the starting position. Using Fluro a starting guide wire was placed proximal to the lesser trochanter and centered along the femoral neck. Then 2 more guide pins were placed more proximal and parallel to the first pin, one anterior and one posterior. These were measured and the cannulated screws were placed in the standard fashion. The most distal and central screw was placed first. All screws were short threaded and the threads crossed the fracture line. Final x-rays were obtained showing anatomic alignment with 3 screws. The wounds were copiously irrigated. The Tensor Fascia Loren and Vastus Lateralis were closed with 0 Vicryl. The deep fat layer was closed with a 2-0 Vicryl. The subcutaneous tissue was closed with 3-0 Vicryl. The skin was closed with ZipLine. The incision was covered with 4x4s, ABDs, and foam tape. The patient was transfer to their hospital bed and taken to the PACU in stable condition. The sponge and needle counts were correct. Post-op Instructions: The patient was admitted to back to the medical surgical floor. The patient will be weightbearing as tolerated right lower extremity with a walker and assistance. The patient will be seen by PT/OT. Their labs will be checked in the am. Continue pain medicine per the primary service. DVT prophylaxis will continue with SCDs and AIDA german, due to spinal anesthesia the patient will start Lovenox tomorrow morning. I attest to the content of the Intraoperative Record and any orders documented therein. Any exceptions are noted below.
--- NOTE | 2018-04-24 11:58 | Operative Report ---
Post Operative Report Pre & Post Diagnosis Operation Date: 04/24/18 10:00 Pre-Op Diagnosis: Right Hip Fracture Post-Op Diagnosis: Right Hip Fracture Procedure Operation Date: 04/24/18 10:00 Actual Procedures p Closed Reduction Percutaneous Pinning Right Hip Fracture(Right) - Emre Jerry MD Surgeon Emre Jerry M.D. Stitcher Hand Lalito Hagen PA-C (No fellow avail) Estimated Blood Loss 20 Findings Consistent with Post-Op Diagnosis Specimens None Anesthesia Type Spinal MAC Complications none Disposition Accompanied Patient To Recovery: No Description of Procedure Patient was taken to the operating room placed under IV sedation. A spinal anesthetic was performed by anesthesia. Timeout was performed. She was given 600 g of IV clindamycin preoperatively for surgical prophylaxis. She was prepped and draped in routine sterile fashion. I was present during the entire case and assisted with positioning, draping, exposure, reduction, implantation of hardware and closure. Please see Dr. Jerry's operative report for further detail. Patient was awakened and transferred to the recovery room in stable condition.
--- NOTE | 2018-04-24 13:10 | Anesthesiology Progress Note ---
Date of Service April 24, 2018 Anesthesia Post Procedure Vital Signs Vital Signs: Temp Pulse Pulse Pulse Resp BP BP 04/24/18 13:05 67 22 04/24/18 13:02 66 25 H 179/81 H 04/24/18 13:00 66 22 04/24/18 12:57 72 24 04/24/18 12:56 68 26 H 171/93 H 04/24/18 12:55 67 22 04/24/18 12:51 67 25 H 179/78 H 04/24/18 12:50 66 20 04/24/18 12:46 68 26 H 171/80 H 04/24/18 12:45 67 20 04/24/18 12:40 68 25 H 174/82 H 04/24/18 12:36 69 25 H 168/102 H 04/24/18 12:35 69 22 04/24/18 12:31 67 23 178/89 H 04/24/18 12:30 67 23 04/24/18 12:26 67 23 183/82 H 04/24/18 12:25 68 24 04/24/18 12:21 68 25 H 176/81 H 04/24/18 12:20 67 24 04/24/18 12:16 67 20 158/108 H 04/24/18 12:15 66 23 04/24/18 12:11 64 23 165/74 H 04/24/18 12:10 65 22 04/24/18 12:06 65 22 195/69 H 04/24/18 12:05 64 21 04/24/18 12:01 65 22 166/82 H 04/24/18 12:00 65 21 04/24/18 11:59 64 22 171/71 H 04/24/18 11:55 67 22 04/24/18 11:53 68 22 176/69 H 04/24/18 11:52 37.4 C 68 68 21 176/69 H 04/24/18 08:25 182/63 H 04/24/18 07:34 74 22 04/24/18 06:52 36.3 C L 61 15 04/24/18 00:15 04/23/18 22:50 37.0 C 55 L 16 04/23/18 19:17 36.7 C 72 20 158/88 H 04/23/18 19:15 36.7 C 72 20 158/88 H 04/23/18 18:49 90 20 190/91 H 04/23/18 17:13 100 H 24 188/100 H 04/23/18 15:33 69 16 180/100 H BP Pulse Ox 04/24/18 13:05 96 04/24/18 13:02 96 04/24/18 13:00 96 04/24/18 12:57 97 04/24/18 12:56 96 04/24/18 12:55 97 04/24/18 12:51 96 04/24/18 12:50 96 04/24/18 12:46 96 04/24/18 12:45 95 04/24/18 12:40 95 04/24/18 12:36 96 04/24/18 12:35 97 04/24/18 12:31 96 04/24/18 12:30 96 04/24/18 12:26 97 04/24/18 12:25 97 04/24/18 12:21 96 04/24/18 12:20 96 04/24/18 12:16 99 04/24/18 12:15 99 04/24/18 12:11 100 04/24/18 12:10 100 04/24/18 12:06 100 04/24/18 12:05 99 04/24/18 12:01 100 04/24/18 12:00 100 04/24/18 11:59 100 04/24/18 11:55 99 04/24/18 11:53 100 04/24/18 11:52 93 04/24/18 08:25 04/24/18 07:34 175/68 H 93 04/24/18 06:52 197/80 H 98 04/24/18 00:15 154/80 H 04/23/18 22:50 170/76 H 97 04/23/18 19:17 96 04/23/18 19:15 96 04/23/18 18:49 92 04/23/18 17:13 92 04/23/18 15:33 94 Pain Intensity Right Hip: Pain Intensity: 0 Notes Mental Status: alert / awake / arousable and participated in evaluation Patient Amnestic to Procedure: Yes Nausea / Vomiting: adequately controlled Pain: adequately controlled Airway Patency, RR, SpO2: stable & adequate BP & HR: stable & adequate Hydration State: stable & adequate Anesthetic Complications: no major complications apparent
[2018-04-24] MEDS ORDERED: ONDANSETRON INJ 2 MG/ML 2 ML VIAL IV PRN (13:23)
[2018-04-24] MEDS: D5W AND 1/2NSS 1,000 ML IV SCH (14:04)
[2018-04-24] MEDS: DOCUSATE SODIUM/SENNA 50/8.6MG TAB PO SCH (20:21)
[2018-04-24] MEDS: MoRPHine SULFATE 4 MG/ML 1 ML CARP\\VIAL IV PRN (20:47)
[2018-04-25] MEDS: MoRPHine SULFATE 4 MG/ML 1 ML CARP\\VIAL IV PRN ×2 (04:10→10:00)
[2018-04-25] MEDS: D5W AND 1/2NSS 1,000 ML IV SCH ×2 (05:26→20:52)
[2018-04-25 06:33] LABS: Basophils # (auto) 0.01 K/uL (0-0.2); Basophils % (auto) 0.1 %; Eosinophils # (auto) 0.04 K/uL (0-0.5); Eosinophils % (auto) 0.5 %; Hematocrit (blood only) 33.3 % (37-47); Hemoglobin 10.4 g/dL (12.0-16.0); Immature Granulocytes # (auto) 0.02 K/uL (0.00-0.02); Immature Granulocytes % (auto) 0.3 %; Lymphocytes # (auto) 1.33 K/uL (1.2-3.4); Lymphocytes % (auto) 17.8 %; Mean Corpuscular Hgb Conc 31.2 g/dL (32-36); Mean Platelet Volume 9.2 fL (7.4-10.4); Monocytes # (auto) 1.08 K/uL (0.11-0.59); Monocytes % (auto) 14.5 %; Neutrophils # (auto) 4.99 K/uL (1.4-6.5); Neutrophils % (auto) 66.8 %; Platelet Count 144 K/uL (130-400); RDW Coefficient of Variation 26.3 % (11.5-14.5); Red Blood Count 4.01 M/uL (4.2-5.4); White Blood Count 7.47 K/uL (4.8-10.8)
[2018-04-25 06:51] LABS: Anisocytosis Present; Hypochromasia Present
[2018-04-25 07:01] LABS: BUN Creatinine Ratio 12.2 (10-20); Calcium 8.1 mg/dl (8.5-10.1); Creatinine Clr Calc Pharmacy 49.6 ml/min; Est GFR (African American) 80.3; Est GFR (Non-African American) 69.3; Potassium 3.2 mmol/L (3.5-5.1)
--- NOTE | 2018-04-25 07:53 | Orthopedic Progress Note ---
Date of Service April 25, 2018 Assessment & Plan (1) Closed right hip fracture: IMPRESSION: POD #1 s/p CRPP Right hip femoral neck fracture. PLAN: Resume diet. WBAT with walker and assistance. Continue pain control. DVT prophylaxis: Start Lovenox today (Continue for 3 weeks, then switch to aspirin 325 orally twice a day for another 3 weeks), continue TEDs and SCDs while in hospital. PT/OT. Check labs. Plan on changing dressing POD #2, he will cover with Silverlon dressing. Discharge planning. Continue care per primary service Subjective Right hip pain Physical Exam 2 Vital Signs (Past 24 Hours): Last Vital Signs Temp 37.0 C 04/25/18 07:41 Pulse 60 04/25/18 07:41 Resp 16 04/25/18 07:41 BP 169/80 H 04/25/18 07:41 Pulse Ox 96 04/25/18 07:41 Physical Exam: AAO 2. Focusing on her right lower extremity, she is neurovascularly intact. Calf soft and nontender. Dressing is clean, dry, intact _ (1) Closed right hip fracture Encounter type: initial encounter Fracture healing: Qualified Code(s): S72.001A - Fracture of unspecified part of neck of right femur, initial encounter for closed fracture
[2018-04-25] MEDS ORDERED: ERGOCALCIFEROL 50,000 UNITS CAP PO SCH ×2 (09:00→12:00)
[2018-04-25] MEDS ORDERED: ERGOCALCIFEROL 50000 UNIT PO SCH (09:00)
[2018-04-25] MEDS: METOPROLOL SUCC 25MG EXT REL TAB PO SCH ×2 (09:25→21:14)
[2018-04-25] MEDS: LOSARTAN POTASSIUM 50 MG TAB PO SCH (09:25)
[2018-04-25] MEDS: FERROUS SULFATE 325 MG TAB PO SCH ×2 (09:25→21:14)
[2018-04-25] MEDS: ENOXAPARIN INJ 40 MG/0.4 ML SYR SQ SCH (09:25)
[2018-04-25] MEDS: CIPROFLOXACIN 400 MG/200 ML BAG IV SCH (09:38)
[2018-04-25] MEDS ORDERED: POTASSIUM CHLORIDE 20 MEQ TABCR PO STA (10:00)
[2018-04-25] MEDS: CHOLECALCIFEROL 1,000 UNITS TAB PO SCH (10:19)
--- NOTE | 2018-04-25 11:09 | Emergency Department Note ---
Entered by Murali Epstein acting as a scribe for History of Present Illness General Chief complaint: Fall Stated complaint: FALL, R HIP PAIN Time Seen by Provider: 04/23/18 15:20 Mode of arrival: other (Nurse) Limitations: other (Significant dementia, History unobtainable) History of Present Illness Provider complaint: Right hip Onset (ago): hour(s) Location: lower extremity and right Pain Consistency: + constant (Constant right hip) and + other (Single fall) Quality: + other (Fall) Treatments prior to arrival: none This history is significantly limited/unobtainable secondary to significant dementia in the patient. The patient is an 87 year old female who presents to the Emergency Room with right hip deformity. Nursing staff states that the patient reports from home where she lives with where she suffered a fall today. The patient is complaining of pain over the right hip. Per nursing staff, the patient fell recently and fractured the left hip. Home Medications Home Medications Medication Instructions Recorded Confirmed Type colestipol 1 g PO BID 02/23/18 04/23/18 History hydrocolloid dressing [DuoDERM 1 dose TOPICAL UD 02/23/18 04/23/18 History Hydroactive] losartan 100 mg PO DAILY 02/23/18 04/23/18 History triamcinolone acetonide 1 applic TOPICAL TID 02/23/18 04/23/18 History acetaminophen [Tylenol] 325 mg PO Q6H PRN 04/23/18 04/23/18 History cholecalciferol (vitamin D3) 50,000 units PO WK 04/23/18 04/23/18 History ferrous sulfate 325 mg PO BID 04/23/18 04/23/18 History metoprolol succinate 25 mg PO BID 04/23/18 04/23/18 History mirtazapine 7.5 mg PO HS 04/23/18 04/23/18 History potassium chloride 10 meq PO BID 04/23/18 04/23/18 History Allergies Allergy/AdvReac Type Severity Reaction Status Date / Time Sulfa (Sulfonamide Allergy Intermediate Hives Verified 04/23/18 17:26 Antibiotics) amoxicillin Allergy Unknown RASH, Verified 04/23/18 17:26 SWELLING - FACE & NECK Penicillins Allergy Unknown RASH, Verified 04/23/18 17:26 SWELLING Past Med/Surg History Medical History Myranda Impaired fasting glucose History of uterine cancer Urinary incontinence HTN (hypertension), benign Hyperlipidemia AAA (abdominal aortic aneurysm) Infrarenal, 3.5cm Hiatal hernia Per CT scan significant portion of stomach in chest Anemia Alzheimer's disease (Chronic) Lone atrial fibrillation Chronic diarrhea Surgical History History of hysterectomy Status post-operative repair of closed fracture of left hip Family History Other Family history non-contributory Social History marital status: Current Living Situation: Spouse Feels Safe at Home: Yes Safety Concerns: Feels Safe At This Time Smoking Status: Never smoker Second Hand Exposure: No Hx Alcohol Use: No Hx Substance Use: No Beliefs That Will Affect Care: None Communication Ability: Unable Review of Systems See HPI for pertinent positives & negatives. Unobtainable due to cognitive status ROS limited/unobtainable secondary to significant dementia. Physical Exam Vital Signs Vital Signs - 24 hr 04/24/18 11:52 04/24/18 11:53 04/24/18 11:55 Temperature 37.4 C Temperature Source Temporal Artery Scan Pulse Rate 68 68 67 Pulse Rate [Apical] 68 Pulse Rate [Left Finger] Pulse Rhythm [Apical] Regular Pulse Rhythm [Left Finger] Pulse Strength [Left Finger] Respiratory Rate 21 22 22 Respiratory Effort / Characteristics Non-Labored Spontaneous Respiratory Depth Normal Respiratory Pattern Regular Blood Pressure 176/69 H Blood Pressure [Left Arm] 176/69 H Blood Pressure Mean 104 Blood Pressure Mean [Left Arm] 104 Blood Pressure Position [Left Arm] Lying Pulse Oximetry 93 100 99 Oxygen Delivery Method Oxymask Oxygen Flow Rate 10 04/24/18 11:59 04/24/18 12:00 04/24/18 12:01 Temperature Temperature Source Pulse Rate 64 65 65 Pulse Rate [Apical] Pulse Rate [Left Finger] Pulse Rhythm [Apical] Pulse Rhythm [Left Finger] Pulse Strength [Left Finger] Respiratory Rate 22 21 22 Respiratory Effort / Characteristics Respiratory Depth Respiratory Pattern Blood Pressure 171/71 H 166/82 H Blood Pressure [Left Arm] Blood Pressure Mean 104 110 Blood Pressure Mean [Left Arm] Blood Pressure Position [Left Arm] Pulse Oximetry 100 100 100 Oxygen Delivery Method Oxygen Flow Rate 04/24/18 12:05 04/24/18 12:06 04/24/18 12:10 Temperature Temperature Source Pulse Rate 64 65 65 Pulse Rate [Apical] Pulse Rate [Left Finger] Pulse Rhythm [Apical] Pulse Rhythm [Left Finger] Pulse Strength [Left Finger] Respiratory Rate 21 22 22 Respiratory Effort / Characteristics Respiratory Depth Respiratory Pattern Blood Pressure 195/69 H Blood Pressure [Left Arm] Blood Pressure Mean 111 Blood Pressure Mean [Left Arm] Blood Pressure Position [Left Arm] Pulse Oximetry 99 100 100 Oxygen Delivery Method Oxygen Flow Rate 04/24/18 12:11 04/24/18 12:15 04/24/18 12:16 Temperature Temperature Source Pulse Rate 64 66 67 Pulse Rate [Apical] Pulse Rate [Left Finger] Pulse Rhythm [Apical] Pulse Rhythm [Left Finger] Pulse Strength [Left Finger] Respiratory Rate 23 23 20 Respiratory Effort / Characteristics Respiratory Depth Respiratory Pattern Blood Pressure 165/74 H 158/108 H Blood Pressure [Left Arm] Blood Pressure Mean 104 124 Blood Pressure Mean [Left Arm] Blood Pressure Position [Left Arm] Pulse Oximetry 100 99 99 Oxygen Delivery Method Oxygen Flow Rate 04/24/18 12:20 04/24/18 12:21 04/24/18 12:25 Temperature Temperature Source Pulse Rate 67 68 68 Pulse Rate [Apical] Pulse Rate [Left Finger] Pulse Rhythm [Apical] Pulse Rhythm [Left Finger] Pulse Strength [Left Finger] Respiratory Rate 24 25 H 24 Respiratory Effort / Characteristics Respiratory Depth Respiratory Pattern Blood Pressure 176/81 H Blood Pressure [Left Arm] Blood Pressure Mean 112 Blood Pressure Mean [Left Arm] Blood Pressure Position [Left Arm] Pulse Oximetry 96 96 97 Oxygen Delivery Method Oxygen Flow Rate 04/24/18 12:26 04/24/18 12:30 04/24/18 12:31 Temperature Temperature Source Pulse Rate 67 67 67 Pulse Rate [Apical] Pulse Rate [Left Finger] Pulse Rhythm [Apical] Pulse Rhythm [Left Finger] Pulse Strength [Left Finger] Respiratory Rate 23 23 23 Respiratory Effort / Characteristics Respiratory Depth Respiratory Pattern Blood Pressure 183/82 H 178/89 H Blood Pressure [Left Arm] Blood Pressure Mean 115 118 Blood Pressure Mean [Left Arm] Blood Pressure Position [Left Arm] Pulse Oximetry 97 96 96 Oxygen Delivery Method Oxygen Flow Rate 04/24/18 12:35 04/24/18 12:36 04/24/18 12:40 Temperature Temperature Source Pulse Rate 69 69 68 Pulse Rate [Apical] Pulse Rate [Left Finger] Pulse Rhythm [Apical] Pulse Rhythm [Left Finger] Pulse Strength [Left Finger] Respiratory Rate 22 25 H 25 H Respiratory Effort / Characteristics Respiratory Depth Respiratory Pattern Blood Pressure 168/102 H 174/82 H Blood Pressure [Left Arm] Blood Pressure Mean 124 112 Blood Pressure Mean [Left Arm] Blood Pressure Position [Left Arm] Pulse Oximetry 97 96 95 Oxygen Delivery Method Oxygen Flow Rate 04/24/18 12:45 04/24/18 12:46 04/24/18 12:50 Temperature Temperature Source Pulse Rate 67 68 66 Pulse Rate [Apical] Pulse Rate [Left Finger] Pulse Rhythm [Apical] Pulse Rhythm [Left Finger] Pulse Strength [Left Finger] Respiratory Rate 20 26 H 20 Respiratory Effort / Characteristics Respiratory Depth Respiratory Pattern Blood Pressure 171/80 H Blood Pressure [Left Arm] Blood Pressure Mean 110 Blood Pressure Mean [Left Arm] Blood Pressure Position [Left Arm] Pulse Oximetry 95 96 96 Oxygen Delivery Method Oxygen Flow Rate 04/24/18 12:51 04/24/18 12:55 04/24/18 12:56 Temperature Temperature Source Pulse Rate 67 67 68 Pulse Rate [Apical] Pulse Rate [Left Finger] Pulse Rhythm [Apical] Pulse Rhythm [Left Finger] Pulse Strength [Left Finger] Respiratory Rate 25 H 22 26 H Respiratory Effort / Characteristics Respiratory Depth Respiratory Pattern Blood Pressure 179/78 H 171/93 H Blood Pressure [Left Arm] Blood Pressure Mean 111 119 Blood Pressure Mean [Left Arm] Blood Pressure Position [Left Arm] Pulse Oximetry 96 97 96 Oxygen Delivery Method Oxygen Flow Rate 04/24/18 12:57 04/24/18 13:00 04/24/18 13:02 Temperature Temperature Source Pulse Rate 72 66 66 Pulse Rate [Apical] Pulse Rate [Left Finger] Pulse Rhythm [Apical] Pulse Rhythm [Left Finger] Pulse Strength [Left Finger] Respiratory Rate 24 22 25 H Respiratory Effort / Characteristics Respiratory Depth Respiratory Pattern Blood Pressure 179/81 H Blood Pressure [Left Arm] Blood Pressure Mean 113 Blood Pressure Mean [Left Arm] Blood Pressure Position [Left Arm] Pulse Oximetry 97 96 96 Oxygen Delivery Method Oxygen Flow Rate 04/24/18 13:05 04/24/18 13:11 04/24/18 13:15 Temperature 36.6 C 36.6 C Temperature Source Temporal Artery Scan Oral Pulse Rate 67 Pulse Rate [Apical] Pulse Rate [Left Finger] 72 Pulse Rhythm [Apical] Pulse Rhythm [Left Finger] Regular Pulse Strength [Left Finger] Normal Respiratory Rate 22 16 Respiratory Effort / Characteristics Non-Labored Spontaneous Respiratory Depth Normal Respiratory Pattern Regular Blood Pressure Blood Pressure [Left Arm] 186/84 H Blood Pressure Mean Blood Pressure Mean [Left Arm] 118 Blood Pressure Position [Left Arm] Lying Pulse Oximetry 96 96 93 Oxygen Delivery Method Nasal Cannula Nasal Cannula Oxygen Flow Rate 2 2 04/24/18 13:50 04/24/18 14:19 04/24/18 15:17 Temperature 36.2 C L 36.8 C Temperature Source Oral Oral Pulse Rate Pulse Rate [Apical] Pulse Rate [Left Finger] 67 67 69 Pulse Rhythm [Apical] Pulse Rhythm [Left Finger] Regular Pulse Strength [Left Finger] Normal Respiratory Rate 14 17 17 Respiratory Effort / Characteristics Non-Labored Respiratory Depth Normal Respiratory Pattern Regular Blood Pressure Blood Pressure [Left Arm] 192/80 H 115/62 149/71 H Blood Pressure Mean Blood Pressure Mean [Left Arm] 117 79 97 Blood Pressure Position [Left Arm] Lying Lying Pulse Oximetry 94 95 96 Oxygen Delivery Method Nasal Cannula Nasal Cannula Nasal Cannula Oxygen Flow Rate 2 2 2 04/24/18 15:20 04/24/18 16:15 04/24/18 21:33 Temperature 36.8 C 36.7 C Temperature Source Oral Oral Pulse Rate Pulse Rate [Apical] Pulse Rate [Left Finger] 66 65 Pulse Rhythm [Apical] Pulse Rhythm [Left Finger] Regular Pulse Strength [Left Finger] Normal Respiratory Rate 18 16 Respiratory Effort / Characteristics Non-Labored Spontaneous Non-Labored Spontaneous Respiratory Depth Normal Normal Respiratory Pattern Regular Blood Pressure Blood Pressure [Left Arm] 152/69 H 110/47 L Blood Pressure Mean Blood Pressure Mean [Left Arm] 96 68 Blood Pressure Position [Left Arm] Lying Lying Pulse Oximetry 94 97 Oxygen Delivery Method Nasal Cannula Nasal Cannula Nasal Cannula Oxygen Flow Rate 2 3 2 04/24/18 23:02 04/25/18 00:10 04/25/18 04:09 Temperature 36.9 C 37 C Temperature Source Oral Oral Pulse Rate Pulse Rate [Apical] Pulse Rate [Left Finger] 60 67 Pulse Rhythm [Apical] Pulse Rhythm [Left Finger] Pulse Strength [Left Finger] Respiratory Rate 18 20 Respiratory Effort / Characteristics Respiratory Depth Respiratory Pattern Blood Pressure Blood Pressure [Left Arm] 133/64 168/90 H Blood Pressure Mean Blood Pressure Mean [Left Arm] 87 116 Blood Pressure Position [Left Arm] Lying Lying Pulse Oximetry 96 92 Oxygen Delivery Method Nasal Cannula Nasal Cannula Room Air Oxygen Flow Rate 2 2 04/25/18 07:30 04/25/18 07:41 Temperature 37.0 C Temperature Source Oral Pulse Rate Pulse Rate [Apical] Pulse Rate [Left Finger] 60 Pulse Rhythm [Apical] Pulse Rhythm [Left Finger] Pulse Strength [Left Finger] Respiratory Rate 16 Respiratory Effort / Characteristics Non-Labored Spontaneous Respiratory Depth Normal Normal Respiratory Pattern Regular Blood Pressure Blood Pressure [Left Arm] 169/80 H Blood Pressure Mean Blood Pressure Mean [Left Arm] 109 Blood Pressure Position [Left Arm] Lying Pulse Oximetry 96 Oxygen Delivery Method Nasal Cannula Room Air Oxygen Flow Rate 2 GENERAL: Awake. Confused. Appears anxious. EYE EXAM: normal conjunctiva, PERRL and EOM's grossly intact OROPHARYNX: no exudate, no erythema, lips, buccal mucosa, and tongue normal and mucous membranes are moist NECK: supple, no nuchal rigidity, no adenopathy, non-tender LUNGS: Clear to auscultation. Normal chest wall mechanics HEART: no murmurs, S1 normal and S2 normal ABDOMEN: abdomen soft, non-tender, normo-active bowel sounds, no masses, no rebound or guarding. BACK: Back is symmetrical on inspection and there is no deformity, no midline tenderness, no CVA tenderness. SKIN: no rashes and no bruising UPPER EXTREMITIES: upper extremities are grossly normal. Normal pulses bilaterally. LOWER EXTREMITIES: Pain over the right hip. Obvious deformity noted on exam. Patient complains of pain with light touch. Right lower extremity slightly shortened. NEURO EXAM: Awake. Not oriented to person, place, or time. Moves upper extremities freely. Demented. Course 1523: Past medical records reviewed. The patient was evaluated in room C10, and a complete history and physical examination were performed. 1615: Patient's family updated at bedside. 165: I reviewed the patient's case with Dr. Janis BUCHANAN Hospitalist. She will evaluate the patient for further management. UA pending, other labs reassuring. Consultations Consultation #1: [id number]: I reviewed the patient's case with Dr. Janis BUCHANAN Hospitalisabelle. She will evaluate the patient for further management. UA pending at the time of discussion. Nuñez catheter being placed. Administered Medications Enoxaparin Sodium (Lovenox) 40 mg SQ Q24H [facility] Stop: 05/25/18 08:59 Last Admin: 04/25/18 09:25 Dose: 40 mg Ferrous Sulfate (Feosol) 325 mg PO BID [facility] Stop: 05/23/18 20:59 Last Admin: 04/25/18 09:25 Dose: 325 mg Admin: 04/24/18 20:20 Dose: 325 mg Admin: 04/24/18 08:09 Dose: Not Given Admin: 04/23/18 21:19 Dose: Not Given Hydralazine HCl (Hydralazine Hcl) 10 mg IV Q6 PRN PRN Reason: SBP>180 Stop: 05/23/18 19:16 Last Admin: 04/24/18 14:05 Dose: 10 mg Admin: 04/24/18 07:01 Dose: 10 mg Dextrose/Sodium Chloride (D5w And 1/2nss) 1,000 mls @ 75 mls/hr IV .[id number] [facility] Stop: 05/23/18 23:58 Last Admin: 04/25/18 05:26 Dose: 75 mls/hr Infusion: 04/25/18 03:24 Dose: 75 mls/hr Admin: 04/24/18 14:04 Dose: 75 mls/hr Infusion: 04/24/18 12:07 Dose: 75 mls/hr Infusion: 04/24/18 06:32 Dose: 75 mls/hr Admin: 04/23/18 22:47 Dose: 75 mls/hr Losartan Potassium (Cozaar) 100 mg PO DAILY [facility] Stop: 05/24/18 08:59 Last Admin: 04/25/18 09:25 Dose: 100 mg Admin: 04/24/18 08:09 Dose: 100 mg Metoprolol Succinate (Toprol Xl) 25 mg PO BID [facility] Stop: 05/23/18 20:59 Last Admin: 04/25/18 09:25 Dose: 25 mg Admin: 04/24/18 20:20 Dose: 25 mg Admin: 04/24/18 08:09 Dose: 25 mg Admin: 04/23/18 21:17 Dose: 25 mg Miscellaneous (Order Awaiting Action) 1 ea N/A QS [facility] Stop: 05/24/18 00:00 Last Admin: 04/25/18 00:22 Dose: Not Given Admin: 04/24/18 15:25 Dose: Not Given Admin: 04/24/18 07:08 Dose: Not Given Admin: 04/23/18 23:22 Dose: Not Given Morphine Sulfate (Morphine Sulfate) 2 mg IV Q2H PRN PRN Reason: moderate pain (scale 4-6) Stop: 05/08/18 07:40 Last Admin: 04/25/18 10:00 Dose: 2 mg Admin: 04/25/18 04:10 Dose: 2 mg Admin: 04/24/18 20:47 Dose: 2 mg Senna/Docusate Sodium (Senokot S) 2 tab PO HS [facility] Stop: 05/23/18 20:59 Last Admin: 04/24/18 20:21 Dose: 1 tab Admin: 04/23/18 21:19 Dose: Not Given Vitamin D (Vitamin D3) 1,000 units PO QAM [facility] Stop: 05/25/18 09:59 Last Admin: 04/25/18 10:19 Dose: 1,000 units Discontinued Medications Bupivacaine HCl/Epinephrine Bitart (Sensorcaine/Epinephrine 0.5% Mpf 1:200,000) Confirm Administered Dose 30 ml .ROUTE .STK-MED ONE Stop: 04/24/18 09:46 Last Admin: 04/24/18 10:49 Dose: 20 ml Sodium Chloride (Nss 1000ml) 1,000 mls @ 150 mls/hr IV .[id number] [facility] Stop: 04/23/18 22:09 Last Infusion: 04/23/18 22:47 Dose: 0 mls/hr Admin: 04/23/18 15:51 Dose: 150 mls/hr Ciprofloxacin (Cipro) 400 mg in 200 mls @ 100 mls/hr IV Q12H [facility]; Protocol Stop: 04/28/18 20:59 Last Admin: 04/25/18 09:38 Dose: 100 mls/hr Infusion: 04/24/18 22:23 Dose: 0 mls/hr Admin: 04/24/18 20:21 Dose: 100 mls/hr Infusion: 04/24/18 10:14 Dose: 0 mls/hr Admin: 04/24/18 08:08 Dose: 100 mls/hr Infusion: 04/23/18 23:16 Dose: 0 mls/hr Admin: 04/23/18 21:07 Dose: 100 mls/hr Clindamycin Phosphate (Cleocin) 600 mg in 54 mls @ 100 mls/hr IV PREOP JAYME Stop: 04/24/18 18:00 Last Infusion: 04/24/18 13:57 Dose: 0 mls/hr Admin: 04/24/18 10:40 Dose: 100 mls/hr Lidocaine/Epinephrine (Xylocaine/Epinephrine 1%) Confirm Administered Dose 20 ml .ROUTE .STK-MED ONE Stop: 04/24/18 09:46 Last Admin: 04/24/18 10:49 Dose: 20 ml Morphine Sulfate (Morphine Sulfate) 2 mg IV Q1H PRN PRN Reason: Moderate Pain (Rating 3,4,5,6) Stop: 05/07/18 15:24 Last Admin: 04/23/18 16:57 Dose: 2 mg Admin: 04/23/18 15:51 Dose: 2 mg Morphine Sulfate (Morphine Sulfate) Confirm Administered Dose 4 mg .ROUTE .STK- MED ONE Stop: 04/24/18 07:38 Last Admin: 04/24/18 07:40 Dose: 2 mg Potassium Chloride (Klor-Con M20) 40 meq PO NOW STA Stop: 04/25/18 10:01 Last Admin: 04/25/18 10:19 Dose: 40 meq Medical Decision Making Differential Diagnosis Differential diagnosis: Etiologies such as fracture, cervical/vertebral injury, dislocation, intra- abdominal process, pneumothorax, intrathoracic trauma, intracranial injury, soft tissue injury, neurologic process, as well as other traumatic pathologies were entertained. Medical Records Attestation: I reviewed the patient's medical records. Home Medications Current Medication List: was personally reviewed by me Laboratory Data Attestation: I reviewed the patient's lab results. Result diagrams: 04/25/18 06:02 04/25/18 06:02 Lab Results 04/23/18 04/23/18 04/23/18 Range/Units 15:42 15:42 15:42 WBC 7.36 (4.8-10.8) K/uL RBC 4.67 (4.2-5.4) M/uL Hgb 12.2 (12.0-16.0) g/dL Hct 38.9 (37-47) % MCV 83.3 (80-100) fL MCH 26.1 (25-34) pg MCHC 31.4 L (32-36) g/dL RDW Std Deviation 79.2 H (36.4-46.3) fL RDW Coeff of August 27.7 H (11.5-14.5) % Plt Count 205 (130-400) K/uL MPV 9.1 (7.4-10.4) fL Immature Gran % (Auto) 0.3 % Neut % (Auto) 64.2 % Lymph % (Auto) 26.1 % Crow[place] % (Auto) 7.9 % Eos % (Auto) 1.0 % Baso % (Auto) 0.5 % Immature Gran # (Auto) 0.02 (0.00-0.02) K/uL Neut # (Auto) 4.73 (1.4-6.5) K/uL Lymph # (Auto) 1.92 (1.2-3.4) K/uL [place] # (Auto) 0.58 (0.11-0.59) K/uL Eos # (Auto) 0.07 (0-0.5) K/uL Baso # (Auto) 0.04 (0-0.2) K/uL Hypochromasia Present Anisocytosis Present PT 10.0 (9.0-12.0) Seconds INR 1.0 (0.9-1.1) APTT 24.0 (21.0-31.0) Seconds PTT Ratio 0.9 Sodium 140 (136-145) mmol/L Potassium 3.6 (3.5-5.1) mmol/L Chloride 108 H (98-107) mmol/L Carbon Dioxide 32 (21-32) mmol/L Anion Gap 0 L (3-11) BUN 12 (7-18) mg/dl Creatinine 0.80 (0.6-1.2) mg/dl Est Cr Clr Drug Dosing 48.4 ml/min Est GFR ( Amer) 77.9 Est GFR (Non-Af Amer) 67.2 BUN/Creatinine Ratio 14.8 (10-20) Glucose 101 H (70-99) mg/dl Calcium 8.7 (8.5-10.1) mg/dl Magnesium (1.8-2.4) mg/dl Total Bilirubin 0.4 (0.2-1) mg/dl AST 19 (15-37) U/L ALT 18 (12-78) U/L Alkaline Phosphatase 100 (45-117) U/L Total Protein 7.0 (6.4-8.2) gm/dl Albumin 3.3 L (3.4-5.0) gm/dl Globulin 3.7 (2.5-4.0) gm/dl Albumin/Globulin Ratio 0.9 (0.9-2) 25-OH Vitamin D Total (30-100) ng/ml Urine Color Urine Appearance (Clear) Urine pH (4.5-7.5) Ur Specific [place] (1.000-1.030) Urine Protein (Negative) Urine Glucose (UA) (Negative) Urine Ketones (Negative) Urine Blood (Negative) Urine Nitrite (Negative) Urine Bilirubin (Negative) Urine Urobilinogen (Negative) Ur Leukocyte Esterase (Negative) Urine WBC (Auto) (0-5) /hpf Urine RBC (Auto) (0-4) /hpf U Hyaline Cast (Auto) (0-5) /lpf U Epithel Cells (Auto) (0-5) /lpf Urine Bacteria (Auto) (Negative) Blood Type Antibody Screen 04/23/18 04/23/18 04/23/18 Range/Units 15:42 16:11 17:09 WBC (4.8-10.8) K/uL RBC (4.2-5.4) M/uL Hgb (12.0-16.0) g/dL Hct (37-47) % MCV (80-100) fL MCH (25-34) pg MCHC (32-36) g/dL RDW Std Deviation (36.4-46.3) fL RDW Coeff of August (11.5-14.5) % Plt Count (130-400) K/uL MPV (7.4-10.4) fL Immature Gran % (Auto) % Neut % (Auto) % Lymph % (Auto) % [place] % (Auto) % Eos % (Auto) % Baso % (Auto) % Immature Gran # (Auto) (0.00-0.02) K/uL Neut # (Auto) (1.4-6.5) K/uL Lymph # (Auto) (1.2-3.4) K/uL [place] # (Auto) (0.11-0.59) K/uL Eos # (Auto) (0-0.5) K/uL Baso # (Auto) (0-0.2) K/uL Hypochromasia Anisocytosis PT (9.0-12.0) Seconds INR (0.9-1.1) APTT (21.0-31.0) Seconds PTT Ratio Sodium (136-145) mmol/L Potassium (3.5-5.1) mmol/L Chloride (98-107) mmol/L Carbon Dioxide (21-32) mmol/L Anion Gap (3-11) BUN (7-18) mg/dl Creatinine (0.6-1.2) mg/dl Est Cr Clr Drug Dosing ml/min Est GFR ( Amer) Est GFR (Non-Af Amer) BUN/Creatinine Ratio (10-20) Glucose (70-99) mg/dl Calcium (8.5-10.1) mg/dl Magnesium (1.8-2.4) mg/dl Total Bilirubin (0.2-1) mg/dl AST (15-37) U/L ALT (12-78) U/L Alkaline Phosphatase (45-117) U/L Total Protein (6.4-8.2) gm/dl Albumin (3.4-5.0) gm/dl Globulin (2.5-4.0) gm/dl Albumin/Globulin Ratio (0.9-2) 25-OH Vitamin D Total 24.0 L (30-100) ng/ml Urine Color Yellow Urine Appearance Cloudy H (Clear) Urine pH 5.5 (4.5-7.5) Ur Specific [place] 1.018 (1.000-1.030) Urine Protein Negative (Negative) Urine Glucose (UA) Negative (Negative) Urine Ketones Negative (Negative) Urine Blood 2+ H (Negative) Urine Nitrite Positive H (Negative) Urine Bilirubin Negative (Negative) Urine Urobilinogen Negative (Negative) Ur Leukocyte Esterase 3+ H (Negative) Urine WBC (Auto) >30 H (0-5) /hpf Urine RBC (Auto) 10-30 H (0-4) /hpf U Hyaline Cast (Auto) 1-5 (0-5) /lpf U Epithel Cells (Auto) 20-30 H (0-5) /lpf Urine Bacteria (Auto) 4+ H (Negative) Blood Type O Positive Antibody Screen NEGATIVE 04/24/18 04/24/18 04/25/18 Range/Units 04:56 04:56 06:02 WBC 6.68 7.47 (4.8-10.8) K/uL RBC 4.51 4.01 L (4.2-5.4) M/uL Hgb 11.7 L 10.4 L (12.0-16.0) g/dL Hct 37.2 33.3 L (37-47) % MCV 82.5 83.0 (80-100) fL MCH 25.9 25.9 (25-34) pg MCHC 31.5 L 31.2 L (32-36) g/dL RDW Std Deviation 76.5 H 76.0 H (36.4-46.3) fL RDW Coeff of August 27.0 H 26.3 H (11.5-14.5) % Plt Count 179 144 (130-400) K/uL MPV 9.5 9.2 (7.4-10.4) fL Immature Gran % (Auto) 0.3 0.3 % Neut % (Auto) 60.7 66.8 % Lymph % (Auto) 24.4 17.8 % [place] % (Auto) 13.6 14.5 % Eos % (Auto) 0.7 0.5 % Baso % (Auto) 0.3 0.1 % Immature Gran # (Auto) 0.02 0.02 (0.00-0.02) K/uL Neut # (Auto) 4.05 4.99 (1.4-6.5) K/uL Lymph # (Auto) 1.63 1.33 (1.2-3.4) K/uL [place] # (Auto) 0.91 H 1.08 H (0.11-0.59) K/uL Eos # (Auto) 0.05 0.04 (0-0.5) K/uL Baso # (Auto) 0.02 0.01 (0-0.2) K/uL Hypochromasia Present Present Anisocytosis Present Present PT (9.0-12.0) Seconds INR (0.9-1.1) APTT (21.0-31.0) Seconds PTT Ratio Sodium 138 (136-145) mmol/L Potassium 3.5 (3.5-5.1) mmol/L Chloride 106 (98-107) mmol/L Carbon Dioxide 28 (21-32) mmol/L Anion Gap 4.0 (3-11) BUN 10 (7-18) mg/dl Creatinine 0.71 (0.6-1.2) mg/dl Est Cr Clr Drug Dosing 54.5 ml/min Est GFR ( Amer) 90.0 Est GFR (Non-Af Amer) 77.7 BUN/Creatinine Ratio 14.1 (10-20) Glucose 107 H (70-99) mg/dl Calcium 8.3 L (8.5-10.1) mg/dl Magnesium 2.1 (1.8-2.4) mg/dl Total Bilirubin (0.2-1) mg/dl AST (15-37) U/L ALT (12-78) U/L Alkaline Phosphatase (45-117) U/L Total Protein (6.4-8.2) gm/dl Albumin (3.4-5.0) gm/dl Globulin (2.5-4.0) gm/dl Albumin/Globulin Ratio (0.9-2) 25-OH Vitamin D Total (30-100) ng/ml Urine Color Urine Appearance (Clear) Urine pH (4.5-7.5) Ur Specific [place] (1.000-1.030) Urine Protein (Negative) Urine Glucose (UA) (Negative) Urine Ketones (Negative) Urine Blood (Negative) Urine Nitrite (Negative) Urine Bilirubin (Negative) Urine Urobilinogen (Negative) Ur Leukocyte Esterase (Negative) Urine WBC (Auto) (0-5) /hpf Urine RBC (Auto) (0-4) /hpf U Hyaline Cast (Auto) (0-5) /lpf U Epithel Cells (Auto) (0-5) /lpf Urine Bacteria (Auto) (Negative) Blood Type Antibody Screen 04/25/18 04/25/18 Range/Units 06:02 06:02 WBC (4.8-10.8) K/uL RBC (4.2-5.4) M/uL Hgb (12.0-16.0) g/dL Hct (37-47) % MCV (80-100) fL MCH (25-34) pg MCHC (32-36) g/dL RDW Std Deviation (36.4-46.3) fL RDW Coeff of August (11.5-14.5) % Plt Count (130-400) K/uL MPV (7.4-10.4) fL Immature Gran % (Auto) % Neut % (Auto) % Lymph % (Auto) % Crowley % (Auto) % Eos % (Auto) % Baso % (Auto) % Immature Gran # (Auto) (0.00-0.02) K/uL Neut # (Auto) (1.4-6.5) K/uL Lymph # (Auto) (1.2-3.4) K/uL Crowley # (Auto) (0.11-0.59) K/uL Eos # (Auto) (0-0.5) K/uL Baso # (Auto) (0-0.2) K/uL Hypochromasia Anisocytosis PT (9.0-12.0) Seconds INR (0.9-1.1) APTT (21.0-31.0) Seconds PTT Ratio Sodium 135 L (136-145) mmol/L Potassium 3.2 L (3.5-5.1) mmol/L Chloride 101 (98-107) mmol/L Carbon Dioxide 29 (21-32) mmol/L Anion Gap 5.0 (3-11) BUN 10 (7-18) mg/dl Creatinine 0.78 (0.6-1.2) mg/dl Est Cr Clr Drug Dosing 49.6 ml/min Est GFR ( Amer) 80.3 Est GFR (Non-Af Amer) 69.3 BUN/Creatinine Ratio 12.2 (10-20) Glucose 112 H (70-99) mg/dl Calcium 8.1 L (8.5-10.1) mg/dl Magnesium (1.8-2.4) mg/dl Total Bilirubin (0.2-1) mg/dl AST (15-37) U/L ALT (12-78) U/L Alkaline Phosphatase (45-117) U/L Total Protein (6.4-8.2) gm/dl Albumin (3.4-5.0) gm/dl Globulin (2.5-4.0) gm/dl Albumin/Globulin Ratio (0.9-2) 25-OH Vitamin D Total 26.0 L (30-100) ng/ml Urine Color Urine Appearance (Clear) Urine pH (4.5-7.5) Ur Specific [place] (1.000-1.030) Urine Protein (Negative) Urine Glucose (UA) (Negative) Urine Ketones (Negative) Urine Blood (Negative) Urine Nitrite (Negative) Urine Bilirubin (Negative) Urine Urobilinogen (Negative) Ur Leukocyte Esterase (Negative) Urine WBC (Auto) (0-5) /hpf Urine RBC (Auto) (0-4) /hpf U Hyaline Cast (Auto) (0-5) /lpf U Epithel Cells (Auto) (0-5) /lpf Urine Bacteria (Auto) (Negative) Blood Type Antibody Screen Imaging Data Attestation: I personally reviewed and interpreted this imaging study as follows : Radiologist's Impression: XR hip RT 2-3V w pelvis HISTORY: 87 years-old Female fall, pain acute right hip pain status post fall COMPARISON: Pelvis radiographs 02/15/2018 TECHNIQUE: AP view of the pelvis with 2 views of the right hip FINDINGS: Limited study secondary to patient obesity and positioning. There are 3 cannulated screws noted about the left femoral neck. Demineralized appearance of the bones. There is acute fracture about the right femoral neck which appears to be transcervical with mild impaction. Moderate soft tissue swelling about the right hip. No acute fracture identified about the right hemipelvis. No associated dislocation. IMPRESSION: Acute transcervical fracture of the right femur with mild impaction. The above report was generated using voice recognition software. It may contain grammatical, syntax or spelling errors. Electronically signed by: Cody Melara M.D. 04/23/2018 4:26 PM XR chest 1V portable HISTORY: 87 years-old Female fall acute chest trauma status post fall. Acute atypical chest pain COMPARISON: Chest radiograph and CT abdomen and pelvis 02/23/2018 TECHNIQUE: Portable AP view of the chest FINDINGS: Cardiac silhouette is enlarged, unchanged. Moderate to large hiatal hernia. Calcification the thoracic aortic arch. There is no pneumothorax, pleural effusion, focal airspace consolidation or overt pulmonary edema. Degenerative changes of the shoulders and spine. IMPRESSION: 1. Cardiomegaly without acute process. 2. Moderate to large hiatal hernia. The above report was generated using voice recognition software. It may contain grammatical, syntax or spelling errors. Electronically signed by: Cody Melara M.D. 04/23/2018 4:32 PM ECG Data Attestation: I personally reviewed and interpreted this ECG as follows: Indication: other (Trauma) Rate (beats per minute): 68 Rhythm: normal sinus Findings: + other (Normal intervals, baseline artifact); no acute ischemic change Blood Pressure Blood Pressure Findings: Elevated blood pressure Blood Pressure Disposition: further management by hospitalist GERDA Narrative Patient here after a fall. Patient lives at home with family who help to care for her as she is severely demented. Patient found to have fracture of the right hip. Patient with no other evidence of trauma and unable to provide any additional history. Patient is not anticoagulated. Patient mildly hypokalemic however this is chronic and she is on potassium supplementation as an outpatient. At time of discussion with the hospitalist patient's UA was pending as nursing staff was inserting a Nuñez catheter and then going to send a specimen. Patient's other labs reassuring including her H&H given the patient is a history of anemia. Patient's vital signs stable throughout. Patient's family updated at bedside. Impression & Plan Closed right hip fracture, Fall, Dementia Discharge Plan Visit Data *Final* Discharge Date/Time: 04/23/18 18:49 Chief Complaint: Fall Stated Complaint: FALL, R HIP PAIN ED Provider: Raquel Escalante Discharge Problem: Closed right hip fracture, Fall, Dementia Patient Disposition: Admitted As Inpatient Condition: Fair Discharge Instructions Interventions: ED Discharge Assessment Last Done: 04/23/18 18:49 The scribe's documentation has been prepared under my direction and personally reviewed by me in its entirety. I confirm that the note above accurately reflects all work, treatment, procedures, and medical decision making performed by me.
--- NOTE | 2018-04-25 14:06 | Hospitalist Progress Note ---
Date of Service April 25, 2018 Assessment & Plan (1) Closed right hip fracture: This patient is an 87-year-old female with a history of HTN, hiatal hernia , chronic diarrhea, impaired fasting glucose, AAA, lone atrial fibrillation, and moderate-severe Alzheimer's dementia who presents to the ER after sustaining a fall in the bathroom which resulted in a right hip fracture. Doing well, POD#1 -Pain control with morphine as needed, Tylenol as needed -DVT prophylaxis with SCDs, Lovenox x 3 weeks, then ASA 325mg po bid x 3 weeks as per Ortho -PT/OT evals -keep Nuñez in for now as minimal movement-not able to stand (2) Chronic diarrhea: has been stable on cholestipol (3) Impaired fasting glucose: Very mild, hemoglobin A1c 5.3% in 01/2018 -No need for Accu-Cheks (4) HTN (hypertension), benign: Blood pressures mildly elevated here secondary to pain and anxiety most likely -Continue Toprol XL 25 bid and losartan 100 mg p.o. every morning (5) AAA (abdominal aortic aneurysm): 3.1 cm on imaging previously (6) Hyperlipidemia: Noted as a diagnosis but not on medication for this at this time (7) Hiatal hernia: Has a very large hiatal hernia but does not seem to cause her symptoms (8) Anemia: Upon admission in January, had severe iron deficiency anemia and required transfusion. She has been on ferrous sulfate ever since receiving those transfusions and her hemoglobin is much improved here at 12 on admission Now with slight drop post-op to 10.4 -no need for transfusion -follow CBC in AM (9) Alzheimer's disease: Moderate-severe in nature. Has been reports she has been sundowning a lot at home and has gotten more "defiant" in the last several weeks. She does eat well and he does get her to take her pills. PCP recently prescribed mirtazapine-he gave her 1 dose of this and reports that she had an opposite reaction to what he thought it would do-she became even more agitated therefore discontinue mirtazapine permanently -Consider using low doses of haloperidol p.o. or hs serouel as needed if becomes a danger to herself while hospitalized (10) Lone atrial fibrillation: Had a brief episode of atrial fibrillation during her last admission in the perioperative period that resolved on its own -She has been on metoprolol ever since She is in a normal sinus rhythm on admission ECG here -Monitor for recurrence but no need for telemetry monitoring at this time -No need for anticoagulation given fall risk and recent episode (11) Vitamin D deficiency: Vit D level here low at 26 -start Vit D 1000 units once daily (12) UTI (urinary tract infection): Growing 2 kinds of E. coli and alpha Strep not Enterococcus on Ur cx -switch IV CIpro to po Cirpo today-day#3 overall of 7 days total (13) DVT prophylaxis: SCDs, Lovenox Case management consulted as she will need placement- has been working on getting her into [facility] anyway prior to this hip fracture. DNR/DNI Subjective Doing well, confused, starting to get fidgety with her blanket as pe rhusband getting "sundowners." Pt denies pain. She is eating with being fed. Afebrile. RN reports no problems Review of Systems Unobtainable due to cognitive status Physical Exam 2 Vital Signs (Past 24 Hours): Last Vital Signs Temp 37.0 C 04/25/18 07:41 Pulse 60 04/25/18 07:41 Resp 16 04/25/18 07:41 BP 169/80 H 04/25/18 07:41 Pulse Ox 96 04/25/18 07:41 Constitutional: WD/WN, vitals as above Eyes: PERRL, conjunctivae normal, anicteric sclerae Neck: trachea midline, no thyromegaly Respiratory: normal respiratory effort, lungs clear to auscultation Cardiovascular: RRR, no murmur, no edema Gastrointestinal (Abdomen): normal bowel sounds, soft, nontender, no hepatosplenomegaly Musculoskeletal: Extremities: + extremities abnormal to inspection (Right hip with dressing in place, no edema), no cyanosis and no clubbing Skin: no rashes, warm and dry Neurologic: moves all extremities and awake; no focal motor deficits Psychiatric: Orientation: alert; + not oriented to person, + not oriented to place and + not oriented to time Eye Contact: + fair eye contact Affect: + flat affect Insight: + severely impaired insight Results & Data Laboratory Results 04/25/18 04/25/18 04/25/18 Range/Units 06:02 06:02 06:02 WBC 7.47 (4.8-10.8) K/uL RBC 4.01 L (4.2-5.4) M/uL Hgb 10.4 L (12.0-16.0) g/dL Hct 33.3 L (37-47) % MCV 83.0 (80-100) fL MCH 25.9 (25-34) pg MCHC 31.2 L (32-36) g/dL RDW Std Deviation 76.0 H (36.4-46.3) fL RDW Coeff of August 26.3 H (11.5-14.5) % Plt Count 144 (130-400) K/uL MPV 9.2 (7.4-10.4) fL Immature Gran % (Auto) 0.3 % Neut % (Auto) 66.8 % Lymph % (Auto) 17.8 % [place] % (Auto) 14.5 % Eos % (Auto) 0.5 % Baso % (Auto) 0.1 % Immature Gran # (Auto) 0.02 (0.00-0.02) K/uL Neut # (Auto) 4.99 (1.4-6.5) K/uL Lymph # (Auto) 1.33 (1.2-3.4) K/uL [place] # (Auto) 1.08 H (0.11-0.59) K/uL Eos # (Auto) 0.04 (0-0.5) K/uL Baso # (Auto) 0.01 (0-0.2) K/uL Hypochromasia Present Anisocytosis Present Sodium 135 L (136-145) mmol/L Potassium 3.2 L (3.5-5.1) mmol/L Chloride 101 (98-107) mmol/L Carbon Dioxide 29 (21-32) mmol/L Anion Gap 5.0 (3-11) BUN 10 (7-18) mg/dl Creatinine 0.78 (0.6-1.2) mg/dl Est Cr Clr Drug Dosing 49.6 ml/min Est GFR ( Amer) 80.3 Est GFR (Non-Af Amer) 69.3 BUN/Creatinine Ratio 12.2 (10-20) Glucose 112 H (70-99) mg/dl Calcium 8.1 L (8.5-10.1) mg/dl 25-OH Vitamin D Total 26.0 L (30-100) ng/ml _ (1) Closed right hip fracture Encounter type: initial encounter Fracture healing: Qualified Code(s): S72.001A - Fracture of unspecified part of neck of right femur, initial encounter for closed fracture (2) AAA (abdominal aortic aneurysm) Presence of rupture: without rupture Qualified Code(s): I71.4 - Abdominal aortic aneurysm, without rupture (3) Hyperlipidemia Hyperlipidemia type: unspecified Qualified Code(s): E78.5 - Hyperlipidemia, unspecified (4) Anemia Anemia type: iron deficiency Iron deficiency anemia type: unspecified iron deficiency Vitamin B12 deficiency anemia type: Folate deficiency anemia type : Bone marrow failure anemia type: Hemolytic anemia type: Other causes of anemia: Chronic kidney disease stage: Qualified Code(s): D50.9 - Iron deficiency anemia, unspecified (5) Alzheimer's disease Alzheimer's disease onset: late-onset Dementia behavioral disturbance: with behavioral disturbance Qualified Code(s): G30.1 - Alzheimer's disease with late onset; F02.81 - Dementia in other diseases classified elsewhere with behavioral disturbance (6) UTI (urinary tract infection) Urinary tract infection type: acute cystitis Hematuria presence: without hematuria Indwelling urinary catheter type: Encounter type: Qualified Code( s): N30.00 - Acute cystitis without hematuria
[2018-04-25] MEDS: CIPROFLOXACIN 250 MG TAB PO SCH (21:14)
[2018-04-25] MEDS: DOCUSATE SODIUM/SENNA 50/8.6MG TAB PO SCH (21:21)
[2018-04-26] MEDS: CIPROFLOXACIN 250 MG TAB PO SCH ×2 (08:31→21:28)
[2018-04-26] MEDS: LOSARTAN POTASSIUM 50 MG TAB PO SCH (08:32)
[2018-04-26] MEDS: METOPROLOL SUCC 25MG EXT REL TAB PO SCH ×2 (08:32→21:28)
[2018-04-26] MEDS: CHOLECALCIFEROL 1,000 UNITS TAB PO SCH (08:32)
[2018-04-26] MEDS: ENOXAPARIN INJ 40 MG/0.4 ML SYR SQ SCH (08:33)
[2018-04-26] MEDS: FERROUS SULFATE 325 MG TAB PO SCH ×2 (08:33→21:28)
[2018-04-26] MEDS ORDERED: BISACODYL 10 MG SUPP PR STA (08:43)
--- NOTE | 2018-04-26 09:48 | Orthopedic Progress Note ---
Date of Service April 26, 2018 Assessment & Plan (1) Closed right hip fracture: IMPRESSION: POD #2 s/p CRPP Right hip femoral neck fracture. PLAN: Continue diet. WBAT with walker and assistance. Continue pain control. DVT prophylaxis: Lovenox (Continue for 3 weeks, then switch to aspirin 325 orally twice a day for another 3 weeks), continue TEDs and SCDs while in hospital. PT/OT. Monitor labs. Dressing changed today, silverlon applied. Also applied ABD x 2 with tape as she continues to try to pull her dressing off and only covered with ABD pads only to protect Silverlon in hopes that if she pulls something off it will be the ABD pads and not the silverlon. Discharge planning. Okay for discharge when medically stable. Follow up with Dr. Jerry in approximately 2 weeks for post op follow up. Continue care per primary service I, Dr. Jerry, saw and examined the patient and discussed the management with my PA. I reviewed my PAs note and agree with the documented findings and the plan of care I developed. Subjective Patient sitting in chair, according to nursing, pulled off dressing last night and was messing with Zip-line. New dressings applied. No increased drainage. No active bleeding. Patient tolerates gentle ROM right hip, no distal edema. She is confused, which is her baseline. Physical Exam 2 Vital Signs (Past 24 Hours): Last Vital Signs Temp 36.7 C 04/26/18 07:09 Pulse 80 04/26/18 07:09 Resp 18 04/26/18 07:09 BP 169/88 H 04/26/18 07:09 Pulse Ox 94 04/26/18 07:09 Physical Exam: Right hip incision, intact, two of the zip-line tabs bend off of incision, trimmed to keep her from pulling at them. Incision remained intact , mild bloody drainage, but no wound dihiscence at this site. Remainder of zip- line intact. Silverlon applied to right hip incision, also applied abd pad x 2 with tape. Tolerates gentle hip ROM. No edema. Moves toes well. _ (1) Closed right hip fracture Encounter type: initial encounter Fracture healing: Qualified Code(s): S72.001A - Fracture of unspecified part of neck of right femur, initial encounter for closed fracture
[2018-04-26 10:41] LABS: Hematocrit (blood only) 32.8 % (37-47); Hemoglobin 10.9 g/dL (12.0-16.0); Mean Corpuscular Hgb Conc 33.2 g/dL (32-36); Mean Corpuscular Volume 82.4 fL (80-100); Mean Platelet Volume 9.4 fL (7.4-10.4); Platelet Count 172 K/uL (130-400); RDW Coefficient of Variation 24.8 % (11.5-14.5); RDW Standard Deviation 72.1 fL (36.4-46.3); Red Blood Count 3.98 M/uL (4.2-5.4); White Blood Count 8.61 K/uL (4.8-10.8)
[2018-04-26] MEDS: MoRPHine SULFATE 4 MG/ML 1 ML CARP\\VIAL IV PRN ×3 (10:58→19:49)
[2018-04-26 11:08] LABS: BUN Creatinine Ratio 9.6 (10-20); Calcium 9.1 mg/dl (8.5-10.1); Est GFR (Non-African American) 75.1; Potassium 3.5 mmol/L (3.5-5.1)
[2018-04-26] MEDS: D5W AND 1/2NSS 1,000 ML IV SCH (11:12)
--- NOTE | 2018-04-26 20:34 | Hospitalist Progress Note ---
Date of Service April 26, 2018 Assessment & Plan (1) Closed right hip fracture: s/p ORIF by Dr. Jerry, POD #2. cont pain control. stop fluids today. lovenox for DVT proph. will need rehab at SNF. (2) Vitamin D deficiency: vitamin D daily (3) Dementia: mod-severe alzheimer's disease with possible mild superimposed delirium. supportive care. (4) HTN (hypertension), benign: labile, likely due to pain/agitation. treat latter. if elevated BPs persist then adjust BP meds. (5) UTI (urinary tract infection): e. coli, alpha strep. day #4 of cipro. continue total 7 days then stop Rx. d/c patino soon. (6) Lip swelling: upper. due to trauma? med reaction? other? no generalized rash at this time. if she is having drug reaction the most likely culprit would be the cipro. follow for now clinically. (7) Chronic kidney disease, stage 3a: creatinine stable. (8) DVT prophylaxis: lovenox , daughter updated at bedside to SNF for rehab next 48 hours Subjective patient with significant confusion from her dementia and thus could not contribute any meaningful history or ROS , daughter at bedside felt her upper lip was swollen today staff report good bowel movement prior to my visit Physical Exam 2 Vital Signs (Past 24 Hours): Last Vital Signs Temp 36.5 C 04/26/18 15:00 Pulse 68 04/26/18 15:27 Resp 18 04/26/18 15:00 BP 172/83 H 04/26/18 15:27 Pulse Ox 94 04/26/18 15:00 Constitutional: well developed, well nourished and + altered mental status; no acute distress ENMT: Mouth: + lip abnormality (upper lip - mild generalized swelling? no angioedema); no oropharynx abnormality and no oral mucosal abnormality Respiratory: normal respiratory effort, lungs clear to auscultation Cardiovascular: RRR, no murmur, no edema Heart Sounds: normal S1 and normal S2 Vessels: normal peripheral pulses Gastrointestinal (Abdomen): normal bowel sounds, soft, nontender, no hepatosplenomegaly Musculoskeletal: right hip dressings intact Psychiatric: Orientation: alert; + not oriented x 3 Affect: no depressed affect and no anxious affect Results & Data Laboratory Results Laboratory Results - last 24 hr 04/26/18 04/26/18 10:33 10:33 WBC 8.61 RBC 3.98 L Hgb 10.9 L Hct 32.8 L MCV 82.4 MCH 27.4 MCHC 33.2 RDW Std Deviation 72.1 H RDW Coeff of August 24.8 H Plt Count 172 MPV 9.4 Sodium 137 Potassium 3.5 Chloride 104 Carbon Dioxide 28 Anion Gap 5.0 BUN 7 Creatinine 0.73 Est Cr Clr Drug Dosing 53.0 Est GFR ( Amer) 87.0 Est GFR (Non-Af Amer) 75.1 BUN/Creatinine Ratio 9.6 L Glucose 114 H Calcium 9.1 _ (1) Closed right hip fracture Encounter type: initial encounter Fracture healing: Qualified Code(s): S72.001A - Fracture of unspecified part of neck of right femur, initial encounter for closed fracture (2) Dementia Alzheimer's disease onset: unspecified onset Dementia behavioral disturbance : without behavioral disturbance Dementia type: Alzheimer's disease Qualified Code(s): G30.9 - Alzheimer's disease, unspecified; F02.80 - Dementia in other diseases classified elsewhere without behavioral disturbance (3) UTI (urinary tract infection) Urinary tract infection type: acute cystitis Hematuria presence: without hematuria Indwelling urinary catheter type: Encounter type: Qualified Code( s): N30.00 - Acute cystitis without hematuria
[2018-04-26] MEDS: DOCUSATE SODIUM/SENNA 50/8.6MG TAB PO SCH (21:04)
[2018-04-26] MEDS: ARTIFICIAL TEARS OP OINT 3.5 GM TUBE OP SCH (21:29)
[2018-04-27] MEDS: MoRPHine SULFATE 4 MG/ML 1 ML CARP\\VIAL IV PRN ×4 (00:31→17:59)
[2018-04-27 07:11] LABS: BUN Creatinine Ratio 10.4 (10-20); Calcium 8.5 mg/dl (8.5-10.1); Creatinine Clr Calc Pharmacy 56.9 ml/min; Est GFR (African American) 92.4; Est GFR (Non-African American) 79.8; Potassium 3.2 mmol/L (3.5-5.1)
[2018-04-27] MEDS ORDERED: POTASSIUM CHLORIDE 10 MEQ TABCR PO STA (08:55)
--- NOTE | 2018-04-27 08:57 | Orthopedic Progress Note ---
Addendum entered and electronically signed by Teresa Hagen PA-C 09:15: Addendum (Blank) Addendum April 27, 2018 09:14 Just informed that patient is being transferred to PCU for A-fib. Will continue to follow as an inpatient and notify Dr. Jerry of today's findings. Original Note: Date of Service April 27, 2018 Assessment & Plan (1) Closed right hip fracture: IMPRESSION: POD #3 s/p CRPP Right hip femoral neck fracture. PLAN: Continue diet. WBAT with walker and assistance. Continue pain control. DVT prophylaxis: Lovenox (Continue for 3 weeks, then switch to aspirin 325 orally twice a day for another 3 weeks), continue TEDs and SCDs while in hospital. PT/OT. Monitor labs. Keep silverlon in place. Discharge planning. - Authorization for [facility] pending. Okay for discharge from orthopedic standpoint. Follow up with Dr. Jerry in approximately 2 weeks for post op follow up. Continue care per primary service. I, Dr. Jerry, saw and examined the patient and discussed the management with my PA. I reviewed my PAs note and agree with the documented findings and the plan of care I developed. Subjective Sitting up in bed, family at bedside. Daughter and . She ate breakfast today, tolerating regular diet. Daughter states that she complains of pain in her right leg. Physical Exam 2 Vital Signs (Past 24 Hours): Last Vital Signs Temp 36.9 C 04/27/18 07:36 Pulse 143 H 04/27/18 07:39 Resp 18 04/27/18 07:36 BP 142/75 H 04/27/18 07:36 Pulse Ox 92 04/27/18 07:36 Physical Exam: [place] intact right hip, silverlon underneath tape and ABD. No drainage. NO distal edema. Dorsalis pedis pulse trace. Moves toes and ankle without pain. Strength seems normal, but hard for her to follow commands to test. Tenderness with palpation throughout right thigh and hip as expected. No calf tenderness. Results & Data Laboratory Results 04/27/18 04/26/18 04/26/18 Range/Units 06:21 10:33 10:33 WBC 8.61 (4.8-10.8) K/uL RBC 3.98 L (4.2-5.4) M/uL Hgb 10.9 L (12.0-16.0) g/dL Hct 32.8 L (37-47) % MCV 82.4 (80-100) fL MCH 27.4 (25-34) pg MCHC 33.2 (32-36) g/dL RDW Std Deviation 72.1 H (36.4-46.3) fL RDW Coeff of August 24.8 H (11.5-14.5) % Plt Count 172 (130-400) K/uL MPV 9.4 (7.4-10.4) fL Sodium 136 137 (136-145) mmol/L Potassium 3.2 L 3.5 (3.5-5.1) mmol/L Chloride 101 104 (98-107) mmol/L Carbon Dioxide 28 28 (21-32) mmol/L Anion Gap 7.0 5.0 (3-11) BUN 7 7 (7-18) mg/dl Creatinine 0.68 0.73 (0.6-1.2) mg/dl Est Cr Clr Drug Dosing 56.9 53.0 ml/min Est GFR ( Amer) 92.4 87.0 Est GFR (Non-Af Amer) 79.8 75.1 BUN/Creatinine Ratio 10.4 9.6 L (10-20) Glucose 86 114 H (70-99) mg/dl Calcium 8.5 9.1 (8.5-10.1) mg/dl _ (1) Closed right hip fracture Encounter type: initial encounter Fracture healing: Qualified Code(s): S72.001A - Fracture of unspecified part of neck of right femur, initial encounter for closed fracture
[2018-04-27] MEDS: CHOLECALCIFEROL 1,000 UNITS TAB PO SCH (08:59)
[2018-04-27] MEDS: ENOXAPARIN INJ 40 MG/0.4 ML SYR SQ SCH (09:00)
[2018-04-27] MEDS: FERROUS SULFATE 325 MG TAB PO SCH ×2 (09:00→20:47)
[2018-04-27] MEDS: METOPROLOL SUCC 25MG EXT REL TAB PO SCH (09:00)
[2018-04-27] MEDS: CIPROFLOXACIN 250 MG TAB PO SCH ×2 (09:00→20:47)
[2018-04-27] MEDS: LOSARTAN POTASSIUM 50 MG TAB PO SCH (09:00)
[2018-04-27] MEDS: ARTIFICIAL TEARS OP OINT 3.5 GM TUBE OP SCH ×3 (09:01→20:48)
[2018-04-27] MEDS ORDERED: dilTIAZem HCl 125 MG in DEXTROSE 5% 100 ML IV SCH (10:00)
[2018-04-27] MEDS: POTASSIUM CHLORIDE 20 MEQ/15 ML UDC PO SCH ×3 (11:56→20:47)
--- NOTE | 2018-04-27 12:04 | Hospitalist Progress Note ---
Date of Service April 27, 2018 Assessment & Plan (1) Closed right hip fracture: s/p ORIF by Dr. Jerry, POD #3. lovenox for DVT proph. will need rehab at SNF. (2) Atrial fibrillation with RVR: Had PAF with RVR during February 2018 stay as well. She has NO symptoms from the rapid a. fib. Transferred to tele today for the a. fib. Placed on cardizem. Spontaneously converted to NSR this afternoon. Plan - Stop cardizem drip. Increase beta jina dose. Echo. Replete low K. Could consider anticoagulation as CHADS score is high but not a good candidate for several reasons including recent h/o iron deficiency, advanced dementia, etc. I will d/w family the issue of anticoagulation to be complete. (3) Vitamin D deficiency: vitamin D daily (4) Hypokalemia: replete, repeat BMP am mag noted to be normal (5) Dementia: mod-severe alzheimer's disease with probable mild superimposed delirium. supportive care. (6) HTN (hypertension), benign: labile but improved. BPs will improve with beta jina increase. (7) UTI (urinary tract infection): e. coli, alpha strep. day #5 of cipro. continue total 7 days then stop Rx. (8) Lip swelling: upper. resolved. uncertain cause but either way it is resolved. (9) Chronic kidney disease, stage 3a: creatinine stable. BMP in am. (10) History of iron deficiency: ferritin level <15 c/w severe Fe Def. discovered during 02/2018 stay. stool was heme negative at that time. her H/H did improve following Fe supplementation. continue Fe. (11) DVT prophylaxis: lovenox , daughter updated at bedside again today observe on tele overnight to r/o recurrent a. fib Subjective called by staff early this am that patient's pulse was rapid and irregular STAT EKG was obtained showing a. fib with RVR she had no cardiac symptoms during this time (no palpitations, chest pain, etc) I transferred the patient to telemetry and started her on cardizem infusion at 5mg/hr by about 5pm this evening the pt converted back to NSR family reports having severe anemia with iron deficiency during February 2018 admission records do show Hb in the 6's with ferritin <15 stool was heme negative however during that admission Review of Systems Unobtainable due to cognitive status Physical Exam 2 Vital Signs (Past 24 Hours): Last Vital Signs Temp 36.8 C 04/27/18 11:22 Pulse 132 H 04/27/18 11:22 Resp 26 H 04/27/18 11:22 BP 126/94 04/27/18 11:22 Pulse Ox 93 04/27/18 11:22 Constitutional: average body habitus and + altered mental status (pleasantly confused); no acute distress and not ill appearing ENMT: external ear and nose normal, oropharynx normal Mouth: no lip abnormality Cardiovascular: Rate/Rhythm: + tachycardic; + abnormal rhythm (irregular ) Heart Sounds: normal S1 and normal S2; no murmur Vessels: posterior tibial pulses present and dorsalis pedis pulses present; no JVD Extremities: no edema Gastrointestinal (Abdomen): normal bowel sounds, soft, nontender, no hepatosplenomegaly Skin: dressings intact right hip Psychiatric: Orientation: alert; + not oriented x 3 Results & Data Laboratory Results Laboratory Results - last 24 hr 04/27/18 04/27/18 04/27/18 06:21 06:21 12:25 Sodium 136 Potassium 3.2 L Chloride 101 Carbon Dioxide 28 Anion Gap 7.0 BUN 7 Creatinine 0.68 Est Cr Clr Drug Dosing 56.9 Est GFR ( Amer) 92.4 Est GFR (Non-Af Amer) 79.8 BUN/Creatinine Ratio 10.4 Glucose 86 Calcium 8.5 Magnesium 2.2 Stl C. diff Tox B Gene Neg C.diff Toxin B _ (1) Closed right hip fracture Encounter type: initial encounter Fracture healing: Qualified Code(s): S72.001A - Fracture of unspecified part of neck of right femur, initial encounter for closed fracture (2) Dementia Alzheimer's disease onset: unspecified onset Dementia behavioral disturbance : without behavioral disturbance Dementia type: Alzheimer's disease Qualified Code(s): G30.9 - Alzheimer's disease, unspecified; F02.80 - Dementia in other diseases classified elsewhere without behavioral disturbance (3) UTI (urinary tract infection) Urinary tract infection type: acute cystitis Hematuria presence: without hematuria Indwelling urinary catheter type: Encounter type: Qualified Code( s): N30.00 - Acute cystitis without hematuria
[2018-04-27] MEDS: DOCUSATE SODIUM/SENNA 50/8.6MG TAB PO SCH (20:49)
[2018-04-27] MEDS: METOPROLOL SUCC 50MG EXT REL TAB PO SCH (20:49)
[2018-04-28] MEDS: MoRPHine SULFATE 4 MG/ML 1 ML CARP\\VIAL IV PRN ×3 (01:34→12:37)
[2018-04-28 06:35] LABS: Hematocrit (blood only) 30.1 % (37-47); Hemoglobin 9.6 g/dL (12.0-16.0); Mean Corpuscular Hgb Conc 31.9 g/dL (32-36); Mean Corpuscular Volume 84.8 fL (80-100); Platelet Count 197 K/uL (130-400); RDW Coefficient of Variation 24.8 % (11.5-14.5); RDW Standard Deviation 74.3 fL (36.4-46.3); Red Blood Count 3.55 M/uL (4.2-5.4); White Blood Count 5.69 K/uL (4.8-10.8)
[2018-04-28 07:13] LABS: Calcium 8.7 mg/dl (8.5-10.1); Creatinine Clr Calc Pharmacy 59.7 ml/min; Est GFR (African American) 93.8; Potassium 4.2 mmol/L (3.5-5.1)
[2018-04-28] MEDS: METOPROLOL SUCC 50MG EXT REL TAB PO SCH ×2 (08:34→21:20)
[2018-04-28] MEDS: ENOXAPARIN INJ 40 MG/0.4 ML SYR SQ SCH (08:35)
[2018-04-28] MEDS: CIPROFLOXACIN 250 MG TAB PO SCH (08:35)
[2018-04-28] MEDS: CHOLECALCIFEROL 1,000 UNITS TAB PO SCH (08:36)
[2018-04-28] MEDS: FERROUS SULFATE 325 MG TAB PO SCH ×3 (08:36→21:51)
[2018-04-28] MEDS: ARTIFICIAL TEARS OP OINT 3.5 GM TUBE OP SCH ×4 (08:37→21:51)
--- NOTE | 2018-04-28 08:50 | Orthopedic Progress Note ---
Date of Service April 28, 2018 Assessment & Plan (1) Closed right hip fracture: Dressing is in place. It was not disturbed. We will continue to follow her while she is in the hospital. Okay for discharge to [facility] from an orthopedic standpoint. Continue with PT/OT. Weightbearing as tolerated with her walker. Silverlon dressing may remain in place. Continue with DVT prophylaxis using Lovenox, teds, and SCDs. I, Dr. Jerry, saw and examined the patient and discussed the management with my PA. I reviewed my PAs note and agree with the documented findings and the plan of care I developed. Subjective Patient is seen in her room this morning. She is pleasantly confused. A female family member is sitting with her. She has no complaints at this time. When asked about hip pain, she states she did have some earlier. She denies any numbness or tingling. Physical Exam 2 Vital Signs (Past 24 Hours): Last Vital Signs Temp 36.8 C 04/28/18 07:01 Pulse 57 L 04/28/18 07:01 Resp 15 04/28/18 07:01 BP 136/71 04/28/18 07:01 Pulse Ox 95 04/28/18 07:01 Physical Exam: Patient is sitting in her bed. Right hip has an intact dressing. There is no soiling. Minimal discomfort with passive flexion and internal/external rotation of her right hip. Intact active motor function of her ankle and toes. Neurologic: Gross sensation is intact across the right leg and foot by soft touch. Peripheral pulses are 2+. No increased edema when compared to her left leg. _ (1) Closed right hip fracture Encounter type: initial encounter Fracture healing: Qualified Code(s): S72.001A - Fracture of unspecified part of neck of right femur, initial encounter for closed fracture
[2018-04-28 12:18] LABS: Hematocrit (blood only) 31.3 % (37-47); Hemoglobin 10.2 g/dL (12.0-16.0)
[2018-04-28] MEDS ORDERED: HALOPERIDOL 1 MG TAB PO STA (12:52)
[2018-04-28] MEDS ORDERED: AMIODARONE 200 MG TAB PO ONE (15:00)
--- NOTE | 2018-04-28 18:16 | Hospitalist Progress Note ---
Date of Service April 28, 2018 Assessment & Plan (1) Closed right hip fracture: s/p ORIF by Dr. Jerry, POD #4. lovenox for DVT proph. (2) Atrial fibrillation with RVR: Converted to NSR last pm. Then had several more brief runs of PAF today. I suspect she goes in/out of a. fib outside of the hospital. She has no symptoms from the a. fib (no palpitations, etc). Ideally she maintain NSR as she does go quite fast when in a. fib. Spoke with cardiology - plan to use amiodarone BID for 10 days then change to once daily dosing thereafter. Had a lengthy discussion with the pt's today -- will NOT pursue anticoagulation in light of heightened fall risk, advanced dementia, etc. (3) Vitamin D deficiency: vitamin D daily (4) Hypokalemia: resolved (5) Dementia: mod-severe alzheimer's disease with probable mild superimposed delirium. supportive care. in light of sundowning, agitation, hallucinations, etc -- start risperdal at HS (6) HTN (hypertension), benign: controlled (7) UTI (urinary tract infection): completed 5+ days of Rx stop antibiotics (8) Lip swelling: upper. resolved. (9) Chronic kidney disease, stage 3a: creatinine stable. BMP in am. (10) History of iron deficiency: ferritin level <15 c/w severe Fe Def. discovered during 02/2018 stay. stool was heme negative at that time. her H/H did improve following Fe supplementation. continue Fe. (11) Acute blood loss anemia: mild, H/H stable today (12) DVT prophylaxis: lovenox , daughter updated at bedside hopefully d/c to SNF tomorrow Subjective converted to NSR last pm about 1700 spotaneously remained NSR all night and this am, then had rapid a. fib several times briefly family reports agitation and sundowning they also mention hallucinations both at [facility] and her home Review of Systems Unobtainable due to cognitive status Physical Exam 2 Vital Signs (Past 24 Hours): Last Vital Signs Temp 36.9 C 04/28/18 15:06 Pulse 65 04/28/18 15:06 Resp 18 04/28/18 15:06 BP 130/55 L 04/28/18 15:06 Pulse Ox 92 04/28/18 15:06 Constitutional: well developed, well nourished, average body habitus and + altered mental status (pleasantly confused); no acute distress and not ill appearing ENMT: external ear and nose normal, oropharynx normal Mouth: no lip abnormality, no oropharynx abnormality and no oral mucosal abnormality Respiratory: normal respiratory effort, lungs clear to auscultation Cardiovascular: RRR, no murmur, no edema Rate/Rhythm: regular rate and regular rhythm Heart Sounds: normal S1 and normal S2; no murmur Vessels: normal peripheral pulses, posterior tibial pulses present and dorsalis pedis pulses present; no JVD Extremities: no edema Gastrointestinal (Abdomen): normal bowel sounds, soft, nontender, no hepatosplenomegaly Psychiatric: Orientation: alert; + not oriented x 3 Affect: no depressed affect and no anxious affect Results & Data Laboratory Results Laboratory Results - last 24 hr 04/28/18 04/28/18 04/28/18 06:12 06:12 12:06 WBC 5.69 RBC 3.55 L Hgb 9.6 L 10.2 L Hct 30.1 L 31.3 L MCV 84.8 MCH 27.0 MCHC 31.9 L RDW Std Deviation 74.3 H RDW Coeff of August 24.8 H Plt Count 197 MPV 9.0 Sodium 136 Potassium 4.2 D Chloride 105 Carbon Dioxide 27 Anion Gap 4.0 BUN 10 Creatinine 0.65 Est Cr Clr Drug Dosing 59.7 Est GFR ( Amer) 93.8 Est GFR (Non-Af Amer) 81.0 BUN/Creatinine Ratio 15.0 Glucose 100 H Calcium 8.7 _ (1) Closed right hip fracture Encounter type: initial encounter Fracture healing: Qualified Code(s): S72.001A - Fracture of unspecified part of neck of right femur, initial encounter for closed fracture (2) Dementia Alzheimer's disease onset: unspecified onset Dementia behavioral disturbance : without behavioral disturbance Dementia type: Alzheimer's disease Qualified Code(s): G30.9 - Alzheimer's disease, unspecified; F02.80 - Dementia in other diseases classified elsewhere without behavioral disturbance (3) UTI (urinary tract infection) Urinary tract infection type: acute cystitis Hematuria presence: without hematuria Indwelling urinary catheter type: Encounter type: Qualified Code( s): N30.00 - Acute cystitis without hematuria
[2018-04-28] MEDS: AMIODARONE 200 MG TAB PO SCH ×2 (21:18→21:52)
[2018-04-28] MEDS: risperiDONE ODT 0.5 MG SOLTAB PO SCH ×2 (21:18→21:51)
[2018-04-28] MEDS: DOCUSATE SODIUM/SENNA 50/8.6MG TAB PO SCH (21:51)
[2018-04-28] MEDS ORDERED: METOPROLOL TARTRATE 1 MG/ML VIAL IV PRN (21:56)
[2018-04-29] MEDS ORDERED: METOPROLOL TARTRATE 1 MG/ML VIAL IV SCH
[2018-04-29 07:14] LABS: BUN Creatinine Ratio 14.3 (10-20); Calcium 8.8 mg/dl (8.5-10.1); Creatinine Clr Calc Pharmacy 58.7 ml/min; Est GFR (African American) 93.8; Potassium 3.8 mmol/L (3.5-5.1)
[2018-04-29] MEDS: ARTIFICIAL TEARS OP OINT 3.5 GM TUBE OP SCH (08:32)
[2018-04-29] MEDS: METOPROLOL SUCC 50MG EXT REL TAB PO SCH (08:32)
[2018-04-29] MEDS: ENOXAPARIN INJ 40 MG/0.4 ML SYR SQ SCH (08:33)
[2018-04-29] MEDS: FERROUS SULFATE 325 MG TAB PO SCH (08:33)
[2018-04-29] MEDS: CHOLECALCIFEROL 1,000 UNITS TAB PO SCH (08:33)
[2018-04-29] MEDS: AMIODARONE 200 MG TAB PO SCH (08:33)
--- NOTE | 2018-05-07 07:34 | Discharge Summary ---
Date of Service date of admission - April 23, 2018 date of discharge - April 29, 2018 Admission HPI Per Admitting Provider The patient is an 87-year-old female with a history of HTN, hiatal hernia, chronic diarrhea, impaired fasting glucose, AAA, one prior episode of atrial fibrillation, and moderate-severe Alzheimer's dementia who presents to the ER after sustaining a fall in the bathroom which resulted in a right hip fracture. Her is present at the bedside and gives the history as the patient has significant dementia and cannot give a history. He stated he helped her onto the toilet and she does get around with assistance with her walker. He went across the mejias to put dishes in the learning services coordinator and then he heard her fall. She tried to get off the toilet and walk to her walker herself. They do not think she sustained any other injuries. Patient is unable to tell me if she has any headache, chest pain, shortness of breath, or any other joint pains. The patient was just admitted here for a fall with resulting in a left hip fracture and underwent repair at the end of 01/2018. She then went to [facility] for rehab and came home on 03/18/18. Principal Diagnosis right hip fracture s/p ORIF Discharge Exam Constitutional well developed, well nourished, average body habitus and + altered mental status (pleasantly confused); no acute distress and not ill appearing ENMT external ear and nose normal, oropharynx normal Mouth: no lip abnormality, no oropharynx abnormality and no oral mucosal abnormality Respiratory normal respiratory effort, lungs clear to auscultation Cardiovascular RRR, no murmur, no edema Rate/Rhythm: regular rate and regular rhythm Heart Sounds: normal S1 and normal S2; no murmur Vessels: normal peripheral pulses, posterior tibial pulses present and dorsalis pedis pulses present; no JVD Extremities: no edema Gastrointestinal (Abdomen) normal bowel sounds, soft, nontender, no hepatosplenomegaly Musculoskeletal right hip dressings intact Psychiatric Orientation: alert; + not oriented x 3 Affect: no depressed affect and no anxious affect Discharge Data Allergies Allergy/AdvReac Type Severity Reaction Status Date / Time Sulfa (Sulfonamide Allergy Intermediate Hives Verified 04/23/18 17:26 Antibiotics) amoxicillin Allergy Unknown RASH, Verified 04/23/18 17:26 SWELLING - FACE & NECK Penicillins Allergy Unknown RASH, Verified 04/23/18 17:26 SWELLING Consultations orthopedics - Emre Jerry MD PT, OT Procedures Performed 1. Operation Date: 04/24/18 Closed Reduction Percutaneous Pinning Right Hip Fracture(Right) - Emre Jerry MD Ordered Studies echocardiogram - * LV mildly dilated * EF 45-50% * mild-moderate AI * moderate MR * mild pulmonary HTN Hospital Course (1) Closed right hip fracture: s/p ORIF by Dr. Jerry. Surgery and post-op course were uncomplicated except for asymptomatic paroxysmal a. fib (see below). Lovenox 40mg daily for 3 weeks for DVT prophylaxis, followed by aspirin 325mg BID for 3 weeks. She is weight-bearing as tolerated to the right leg. She will need follow-up with Dr. Jerry about 10 days post-discharge. She is transferring to [facility] for rehab. (2) Atrial fibrillation with RVR: The patient developed rapid a. fib on POD #3 and required transfer to the telemetry unit for such. She was placed on cardizem infusion and ultimately spontaneously converted back to NSR. Her beta jina was increased to BID dosing. She then had several more brief runs of PAF prior to discharge. During her runs of a. fib her rates were quite rapid often reaching the 150s/ 160s at rest. I suspect that the patient goes in/out of a. fib outside of the hospital as well as she is not symptomatic from the a. fib. Phone consult with cardiology was obtained, and amiodarone was recommended to try and maintain NSR. She was placed on amiodarone 400mg BID for 10 days, followed by 200mg once daily thereafter. A lengthy discussion was held with the patient's family regarding anticoagulation including the risks/benefits of such. In light of the patient's fall history, advanced dementia, history of significant iron deficiency presumed to be from GI blood loss, and overall poor prognosis a decision as made NOT to pursue anticoagulation. She will need follow-up with [facility] within 2 weeks of discharge to ensure she has not developed bradycardia from her beta jina and amiodarone , and to ensure she is overall doing ok from a cardiac standpoint. She had no evidence of decompensated CHF while here. (3) Vitamin D deficiency: Vitamin D level was 26 while here. She will continue vitamin D supplementation daily. (4) Hypokalemia: resolved with supplementation. (5) Dementia: Mod-severe alzheimer's disease with probable mild superimposed delirium. Family reported significant sundowning, agitation, hallucinations, etc at home. She also had these symptoms at the hospital. Low-dose risperdal at HS was started here. QTc on EKG was wnl. (6) HTN (hypertension), benign: controlled during this stay. (7) UTI (urinary tract infection): completed 5+ days of treatment and antibiotics were stopped before discharge. (8) Lip swelling: transient - involving the upper lip only. etiology uncertain. no obvious drug reaction or angioedema. either way it resolved prior to discharge. (9) Chronic kidney disease, stage 3a: creatinine stable during her stay. discharge Cr was 0.65. (10) History of iron deficiency: ferritin level <15 c/w severe Fe Def. discovered during 02/2018 stay. stool was heme negative at that time. her H/H did improve following Fe supplementation. continue Fe after discharge. discharge hemoglobin was 10.2. (11) Acute blood loss anemia: mild, due to blood loss from the hip fracture and the surgery itself. again discharge hemoglobin was 10.2. (12) DVT prophylaxis: lovenox daily x 21 days, followed by aspirin 325mg BID x 21 days. she should be on PPI prophylaxis when she takes the iron due to her large hiatal hernia and risk of GI bleeding. Total Time Total Time Spent Total Time Spent (In Minutes): 50 Total Time Includes: Examination of the Patient, Discharge Planning, Medication Reconciliation and Communication With Other Providers Discharge Plan Discharge Items Patient Disposition: Transfer Detention Fac Reason For Visit: HIP FRACTURE Discharge Diagnosis: right hip fracture s/p ORIF by Dr. Emre Jerry. Rapid a. fib. UTI. Severe dementia. Condition: Fair Discharge Goals: Diagnostic testing, Improve function and Therapeutic intervention Activity: As commented below Activity Comment: weight bearing as tolerated with walker Non-emergency contact: Surgeon and Assignment Editor Call non-emergency contact if: you have any medication questions, your symptoms worsen, your pain is not controlled, your pain is unusual for you, your temperature is above 100.5, your wound has increased redness, your wound has increased drainage and your wound pain has increased Follow-up/Referrals: Emre Jerry MD [Physician] - 05/10/18 1:30 pm Diet: Heart Healthy and Low Fiber Fluids: 1800ml (7 cups) Addtl Provider Instructions: From Arpan Maradiaga - Hospitalist - 1. Orthopedic instructions following right hip fracture repair - WBAT with walker and assistance. DVT prophylaxis: Start Lovenox for 3 weeks, then switch to aspirin 325 orally twice a day for another 3 weeks. Allowed for range of motion right hip, knee and ankle AIDA stockings for edema bilateral lower extremities. 2. Amiodarone --- * 400mg twice daily x 9 days THEN reduce to * 200mg once daily thereafter 3. Follow-up with [facility] - any provider - in 10 days. Diagnosis - a. fib on amiodarone. 4. See Dr. Jerry as scheduled (see separate section for date/time). 5. Return to [facility] if - * fevers over 100.5 occur * uncontrolled pain * redness, swelling, drainage, etc from right hip wound * worsening shortness of breath * persistent tachycardia (HR over 100 persistently) * any other concerns 6. Strongly recommend completion of "POLST" form in light of advanced dementia. Prescriptions: New amiodarone 200 mg Tablet 200 mg PO DIRECTED Qty: 100 RF: 1 metoprolol succinate 50 mg Tablet Extended Release 24 Hr 25 mg PO HS Qty: 30 RF: 2 enoxaparin 40 mg/0.4 mL Syringe 40 mg subcut Q24H 21 Days Qty: 21 RF: 0 risperidone 0.5 mg Tablet,Disintegrating 0.5 mg PO HS Qty: 30 RF: 1 white petrolatum-mineral oil [Artificial Tears (john/min)] 83-15 % Ointment 1 applic ophthalmic (eye) TID Qty: 1 RF: 0 omeprazole 20 mg capsule,delayed release(DR/EC) 20 mg PO DAILY Qty: 30 RF: 2 aspirin 325 mg tablet 325 mg PO BID 21 Days Qty: 42 RF: 0 Continue triamcinolone acetonide 0.5 % Cream 1 applic TOPICAL TID RF: 0 losartan 100 mg Tablet 100 mg PO DAILY RF: 0 colestipol 1 gram Tablet 1 g PO BID RF: 0 ferrous sulfate 325 mg (65 mg iron) tablet,delayed release (DR/EC) 325 mg PO BID RF: 0 mirtazapine 7.5 mg Tablet 7.5 mg PO HS RF: 0 potassium chloride 10 mEq Capsule, Extended Release 10 meq PO BID RF: 0 cholecalciferol (vitamin D3) 50,000 unit Tablet 50,000 units PO WK RF: 0 hydrocolloid dressing [DuoDERM Hydroactive] Paste 1 dose Topical UD Qty: 0 RF: 0 Changed acetaminophen [Tylenol] 325 mg Tablet 650 mg PO Q6H PRN (Reason: Pain) Qty: 60 RF: 0 metoprolol succinate 25 mg tablet extended release 24 hr 50 mg PO QAM Qty: 30 RF: 2 Stand-Alone Forms: [facility] Discharge Orders: Discharge Order (Routine); Ordered 04/29/18 Ordered By: Arpan Maradiaga Skilled Items Patient informed of condition?: Yes (BUT DUE TO DEMENTIA UNLIKELY TO UNDERSTAND ) DNR: Yes Communicable Disease: No Discharge Prognosis: Stable Admission Data Admit Date/Time: 04/23/18 17:47 Attending Provider: Arpan Maradiaga Admit Provider: Janis Llamas Primary Care Provider: Yonny Cullen Other Providers: Emre Jerry ; Juve Linder Service: Intensive Care Unit Other Interventions: Discharge Summary Assessment (RN) Last Done: 04/29/18 12:41 Pending Studies at Discharge: No DC Date/Time DO NOT enter until pt leaves facility: 04/29/18 12:51
== END 2018-04-29 12:51 | DRG 481 ==
LOC: ED 15:18 → SUATTDRO 17:47 → 3W 17:47 → 2E 04-27 10:11
DX: W19.XXXA Unspecified fall, initial encounter; Z79.899 Other long term (current) drug therapy; N18.3 Chronic kidney disease, stage 3 (moderate); Z88.0 Allergy status to penicillin; B96.20 Unspecified Escherichia coli [E. coli] as the cause of diseases classified elsewhere; K52.9 Noninfective gastroenteritis and colitis, unspecified; L71.9 Rosacea, unspecified; D50.9 Iron deficiency anemia, unspecified; Y92.002 Bathroom of unspecified non-institutional (private) residence as the place of occurrence of the external cause; G30.9 Alzheimer's disease, unspecified; I12.9 Hypertensive chronic kidney disease with stage 1 through stage 4 chronic kidney disease, or unspecified chronic kidney disease; E55.9 Vitamin D deficiency, unspecified; E87.6 Hypokalemia; Z51.81 Encounter for therapeutic drug level monitoring; R22.0 Localized swelling, mass and lump, head; Z91.81 History of falling; Z66 Do not resuscitate; Z85.42 Personal history of malignant neoplasm of other parts of uterus; S72.001A Fracture of unspecified part of neck of right femur, initial encounter for closed fracture; D62 Acute posthemorrhagic anemia; E78.5 Hyperlipidemia, unspecified; I71.4 Abdominal aortic aneurysm, without rupture; B95.4 Other streptococcus as the cause of diseases classified elsewhere; Y93.E8 Activity, other personal hygiene; Y99.8 Other external cause status; N39.0 Urinary tract infection, site not specified; I48.91 Unspecified atrial fibrillation; Z88.2 Allergy status to sulfonamides; F02.81 Dementia in other diseases classified elsewhere, unspecified severity, with behavioral disturbance

== ENCOUNTER 2018-05-08 13:04 | Inpatient (IN) ==
[2018-05-08 13:26] LABS: Basophils # (auto) 0.02 K/uL (0-0.2); Basophils % (auto) 0.1 %; Hematocrit (blood only) 37.3 % (37-47); Hemoglobin 11.7 g/dL (12.0-16.0); Immature Granulocytes # (auto) 0.08 K/uL (0.00-0.02); Immature Granulocytes % (auto) 0.5 %; Lymphocytes % (auto) 5.4 %; Mean Corpuscular Hgb Conc 31.4 g/dL (32-36); Mean Corpuscular Volume 86.1 fL (80-100); Mean Platelet Volume 9.4 fL (7.4-10.4); Monocytes # (auto) 1.24 K/uL (0.11-0.59); Monocytes % (auto) 8.3 %; Neutrophils # (auto) 12.79 K/uL (1.4-6.5); Neutrophils % (auto) 85.7 %; Platelet Count 239 K/uL (130-400); RDW Coefficient of Variation 22.8 % (11.5-14.5); RDW Standard Deviation 72.6 fL (36.4-46.3); Red Blood Count 4.33 M/uL (4.2-5.4); White Blood Count 14.93 K/uL (4.8-10.8)
[2018-05-08 13:34] LABS: Prothrombin Time 9.8 Seconds (9.0-12.0)
[2018-05-08 13:40] LABS: Albumin Level 2.4 gm/dl (3.4-5.0); BUN Creatinine Ratio 26.1 (10-20); Calcium 8.8 mg/dl (8.5-10.1); Creatinine Clr Calc Pharmacy 28.1 ml/min; Est GFR (African American) 46.8; Est GFR (Non-African American) 40.4; Magnesium 2.2 mg/dl (1.8-2.4); Potassium 3.9 mmol/L (3.5-5.1)
[2018-05-08 13:49] LABS: iSTAT Hemoglobin 12.2 g/dl (12.0-16.0); iSTAT Ionized Calcium 1.17 mmol/l (1.12-1.32)
[2018-05-08 13:50] LABS: Appearance Urine Cloudy (Clear); Bacteria Urine Automated 1+ (Negative); Bilirubin Urine Negative (Negative); Color Urine Orange; Epithelial Cell Urine Auto 0-5 /lpf (0-5); Glucose Urine UA Negative (Negative); Ketones Urine Negative (Negative); Leukocyte Esterase Urine 2+ (Negative); Nitrite Urine Negative (Negative); Specific Gravity Urine 1.012 (1.000-1.030); Urobilinogen Urine Negative (Negative); WBC Urine Automated >30 /hpf (0-5); pH Urine >= 9.0 (4.5-7.5)
[2018-05-08 13:51] LABS: Albumin Globulin Ratio 0.5 (0.9-2); Bilirubin,Total 0.4 mg/dl (0.2-1); Globulin 4.7 gm/dl (2.5-4.0); Total Protein 7.1 gm/dl (6.4-8.2); Troponin I 0.018 ng/ml (0-0.045)
[2018-05-08 13:52] LABS: Protein Urine 2+ (Negative)
[2018-05-08] MEDS ORDERED: cefTRIAXone SODIUM 1,000 MG/50 ML BAG IV STA (14:05)
--- NOTE | 2018-05-08 14:06 | XRay Report ---
XR chest 1V portable HISTORY: weakness COMPARISON: Chest 04/23/2018. FINDINGS: The heart remains enlarged. Moderate hiatus hernia persists. No pneumothorax. No pleural ef fusions. No focal lung consolidations to suggest pneumonia. No evidence for pulmonary edema. Left api tasha density is likely due to the overlapping first rib. IMPRESSION: Stable mild cardiomegaly. Electronically signed by: Nitish Villeda M.D. 05/08/2018 2:05 PM
[2018-05-08 14:15] LABS: Anisocytosis Present
[2018-05-08] MEDS ORDERED: IOVERSOL 100ml IV PRN (15:08)
--- NOTE | 2018-05-08 15:19 | CT Scan Report ---
HEAD CT NONCONTRAST CT DOSE: HISTORY: Altered mental status. TECHNIQUE: Multiaxial CT images of the head were performed without the use of intravenous contrast. A utomated exposure control was utilized for this study. A dose lowering technique was utilized adheri ng to the principles of ALARA. Comparison: Head CT 09/04/2013. Findings: The paranasal sinuses and mastoid air cells are clear. The calvarium and skull base are int act. There is no mass, hematoma, midline shift, acute infarct. White matter hypodensity is nonspecifi c but suggestive of moderate microvascular ischemic change. The ventricles and sulci demonstrate mild age-related involutional changes. 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 Impression: No acute intracranial abnormality. Atrophy and microvascular ischemic changes. Electronically signed by: Nitish Villeda M.D. 05/08/2018 3:18 PM
--- NOTE | 2018-05-08 15:28 | CT Scan Report ---
CT ANGIOGRAPHY OF THE CHEST, PULMONARY EMBOLUS PROTOCOL CLINICAL HISTORY: eval for PE, tachypnea, recent hip surgery, AMS COMPARISON STUDY: Chest CT March 27, 2010. Chest radiograph performed earlier today. TECHNIQUE: Following IV administration of Optiray-320, helical axial images of the chest were obtaine d utilizing the pulmonary embolus protocol. Maximal intensity projections and sagittal and coronal r eformats were viewed on an independent 3D workstation. IV contrast was administered without complica tion. Automated exposure control was utilized for the study. A dose lowering technique was utilized adhering to the principles of ALARA. CT DOSE: 1890.85 mGy.cm FINDINGS: This exam is significantly compromised by respiratory motion artifact. There are no centra l pulmonary emboli. The heart is moderately enlarged. There is no thoracic aortic dissection or thora cic lymphadenopathy. A moderate-sized hilar hernia is noted. There is slight dilatation of the centra l pulmonary arteries. A small left pleural effusion is noted. A 1 cm low-attenuation left lower lobe nodule on image 128 of [address] of March 27, 2010. This likely contains fat. This favo rs a hamartoma. There is no consolidation to suggest pneumonia. The central airways are patent. There is no pneumothorax. Bony thorax and upper abdomen are unremarkable. IMPRESSION: 1. No central pulmonary emboli. Remainder of pulmonary arteries suboptimally assessed given respirato ry motion. Consideration might be given to further evaluation with lower extremity venous Doppler. 2. Trace left pleural effusion. 3. No consolidation to suggest pneumonia. 4. 1 cm left lower lobe nodule which is similar to CT of March 27, 2010. This is likely benign and favors a hamartoma. Electronically signed by: Amador Suresh M.D. 05/08/2018 3:27 PM
--- NOTE | 2018-05-08 15:51 | Emergency Department Note ---
Entered by Nancy Jewell acting as a scribe for ED Provider Note CHIEF COMPLAINT: Lethargic HISTORY OF PRESENT ILLNESS: Per EMS: EMS was called because the patient was lethargic. The patient was not hypoxic or febrile and her oxygen saturation was 99%. Her blood pressure was 137 /40. The patient was breathing a little bit fast and her oxygen saturation was 40% then. She has been lethargic for 3 days. The patient is an 87 year old female who presents to the Emergency Room with complaints of lethargy that started 3 days ago. The patient�s reports the patient was at [facility] initially for hip fracture but was going to be enrolled permanently for care. He reports her temperature has been erratic. The notes she had hip surgery 2 weeks ago. He notes the patient has dementia. History limited secondary to the patient's altered mental status Pt denies LOC, headache, chest pain, nausea, vomiting, abdominal pain, back pain , melena, hematochezia, or other complaints. REVIEW OF SYSTEMS: See HPI for pertinent positives and negatives. A total of ten systems were reviewed and were otherwise negative. PMHx/PSHx: Acute blood loss anemia Hx of iron deficiency Atrial fibrillation with RVR Dementia SOCIAL HISTORY: Patient lives at home. PHYSICAL EXAM: GENERAL: Awake, alert, tired appearing, in no distress HENT: Normocephalic, atraumatic. Oropharynx unremarkable. EYES: Normal conjunctiva. Sclera non-icteric. NECK: Inspection normal. Non-tender. Supple. No nuchal rigidity. FROM. No masses. RESPIRATORY: Clear to auscultation. No wheezes. No rales. Normal respiratory effort. CARDIAC: Normal rate. Normal rhythm. No murmurs. No rubs. Extremities warm and well perfused. Pulses equal. No JVD. GI: Soft, non-distended. Lower abdominal tenderness to palpation. No rebound or guarding. No masses. RECTAL: Deferred. MUSCULOSKELETAL: Atraumatic. Chest examination reveals no tenderness. The back is symmetrical on inspection without obvious abnormality. There is no CVA tenderness to palpation. No joint edema. LOWER EXTREMITIES: Calves are equal size bilaterally and non-tender. No edema. No discoloration. Incision on the right hip is without signs of infection. NEURO: Confused and demented sensorium. No focal sensory or motor deficits noted. SKIN: No rash or jaundice noted. EMERGENCY DEPARTMENT COURSE: 1309: Past medical records reviewed. The patient was evaluated in room B12B, and a complete history and physical examination were performed. 1405: Patient reassessed. Hemodynamic stable. IV Rocephin ordered. CT of the head and CT angiogram ordered. Discussed further management in the hospital with the patient's . 1535: Consultation made with the [facility] [place] Divisionist service. The CT PE study was nondiagnostic. Bilateral ultrasound imaging of the lower extremities were ordered. MEDICAL DECISION MAKING: Prior records/ancillary studies reviewed and summarized above. Nursing notes reviewed and agree them. Additional history obtained from patient's . The patient's history was concerning for altered mental status. Differential diagnosis: Etiologies such as infection, hypoglycemia, electrolyte abnormalities, cardiac sources, intracerebral event, toxicologic, neurologic, as well as others were entertained. Physical examination: As above. ER treatment provided: IV Lock Normal saline hydration IV Rocephin On reassessment the patient felt better. Diagnostics interpretation by me: ECG: No acute ischemia The labs revealed a moderate leukocytosis on CBC. Chemistry panel was unremarkable. The patient's urinalysis is concerning for infection. Lactate normal. Troponin negative. Imaging studies: CT scan of the head negative. CT scan of the chest does not reveal any evidence of pneumonia. Nondiagnostic for pulmonary emboli per radiology. Lower extremity ultrasound imaging ordered. Consultation: A consultation was placed with the hospitalist. The case was discussed and diagnostics were reviewed. The patient was evaluated in the ER for further treatment. IMPRESSION: Altered mental status UTI PLAN: Admit The scribe's documentation has been prepared under my direction and personally reviewed by me in its entirety. I confirm that the note above accurately reflects all work, treatment, procedures, and medical decision making performed by me. Impression & Plan Altered mental status, UTI (urinary tract infection) Past Med/Surg History Medical History Rosacea Impaired fasting glucose History of uterine cancer Urinary incontinence HTN (hypertension), benign Hyperlipidemia AAA (abdominal aortic aneurysm) Infrarenal, 3.5cm Hiatal hernia Per CT scan significant portion of stomach in chest Anemia Alzheimer's disease (Chronic) Chronic diarrhea Lone atrial fibrillation Surgical History History of hysterectomy Status post-operative repair of closed fracture of left hip Family History Other Family history non-contributory Social History marital status: Current Living Situation: Spouse Feels Safe at Home: Yes Smoking Status: Never smoker Second Hand Exposure: No Hx Alcohol Use: No Hx Substance Use: No Beliefs That Will Affect Care: None Preferred Language: Georgian Results & Data Vital Signs Vital Signs - 24 hr 05/08/18 13:14 05/08/18 15:13 Temperature 37.3 C Temperature Source Oral Sepsis Recent Fever Within 48 Hours Yes Sepsis New/Unexplained Change in Mental Status Yes Sepsis Action Taken by Nursing No Action Required Pulse Rate 60 Pulse Rate [Apical] 62 Respiratory Rate 30 H 30 H Blood Pressure 141/74 H Blood Pressure [Left Arm] 136/96 Blood Pressure Mean 96 Blood Pressure Mean [Left Arm] 109 Pulse Oximetry 90 92 Oxygen Delivery Method Room Air Nasal Cannula Oxygen Flow Rate 4 Home Medications Current Medication List: was personally reviewed by me Laboratory Data Attestation: I reviewed the patient's lab results. Result diagrams: 05/08/18 12:50 05/08/18 12:50 Lab Results 05/08/18 05/08/18 05/08/18 Range/Units 12:50 12:50 12:50 WBC 14.93 H (4.8-10.8) K/uL RBC 4.33 (4.2-5.4) M/uL Hgb 11.7 L (12.0-16.0) g/dL POC Hgb (12.0-16.0) g/dl Hct 37.3 (37-47) % POC Hct (37-47) % MCV 86.1 (80-100) fL MCH 27.0 (25-34) pg MCHC 31.4 L (32-36) g/dL RDW Std Deviation 72.6 H (36.4-46.3) fL RDW Coeff of August 22.8 H (11.5-14.5) % Plt Count 239 (130-400) K/uL MPV 9.4 (7.4-10.4) fL Immature Gran % (Auto) 0.5 % Neut % (Auto) 85.7 % Lymph % (Auto) 5.4 % [place] % (Auto) 8.3 % Eos % (Auto) 0.0 % Baso % (Auto) 0.1 % Immature Gran # (Auto) 0.08 H (0.00-0.02) K/uL Neut # (Auto) 12.79 H (1.4-6.5) K/uL Lymph # (Auto) 0.80 L (1.2-3.4) K/uL [place] # (Auto) 1.24 H (0.11-0.59) K/uL Eos # (Auto) 0.00 (0-0.5) K/uL Baso # (Auto) 0.02 (0-0.2) K/uL Anisocytosis Present PT 9.8 (9.0-12.0) Seconds INR 1.0 (0.9-1.1) POC Sodium (135-144) mEq/L Sodium 142 (136-145) mmol/L POC Potassium (3.3-5.0) mEq/L Potassium 3.9 (3.5-5.1) mmol/L POC Chloride (101-112) mEq/L Chloride 105 (98-107) mmol/L Carbon Dioxide 31 (21-32) mmol/L POC Total CO2 (24-31) mEq/l Anion Gap 6.0 (3-11) POC Anion Gap (16-25) mmol/L POC BUN (7-18) mg/dl BUN 32 H (7-18) mg/dl Creatinine 1.22 H (0.6-1.2) mg/dl POC Creatinine (0.6-1.3) mg/dl Est Cr Clr Drug Dosing 28.1 ml/min Est GFR ( Amer) 46.8 Est GFR (Non-Af Amer) 40.4 BUN/Creatinine Ratio 26.1 H (10-20) Glucose 122 H (70-99) mg/dl POC Glucose (other) (70-99) mg/dl POC Lactic Acid Deion (0.90-1.70) mmol/L Calcium 8.8 (8.5-10.1) mg/dl POC Ioniz Calcium Jerardo (1.12-1.32) mmol/l Magnesium 2.2 (1.8-2.4) mg/dl Total Bilirubin 0.4 (0.2-1) mg/dl AST 17 (15-37) U/L ALT 15 (12-78) U/L Alkaline Phosphatase 75 (45-117) U/L Troponin I 0.018 (0-0.045) ng/ml Total Protein 7.1 (6.4-8.2) gm/dl Albumin 2.4 L (3.4-5.0) gm/dl Globulin 4.7 H (2.5-4.0) gm/dl Albumin/Globulin Ratio 0.5 L (0.9-2) TSH 6.850 H (0.300-4.500) uIu/ml Urine Color Urine Appearance (Clear) Urine pH (4.5-7.5) Ur Specific Overbrook (1.000-1.030) Urine Protein (Negative) Urine Glucose (UA) (Negative) Urine Ketones (Negative) Urine Blood (Negative) Urine Nitrite (Negative) Urine Bilirubin (Negative) Urine Urobilinogen (Negative) Ur Leukocyte Esterase (Negative) Urine WBC (Auto) (0-5) /hpf Urine RBC (Auto) (0-4) /hpf U Hyaline Cast (Auto) (0-5) /lpf U Epithel Cells (Auto) (0-5) /lpf Urine Bacteria (Auto) (Negative) 05/08/18 05/08/18 05/08/18 Range/Units 13:22 13:28 13:34 WBC (4.8-10.8) K/uL RBC (4.2-5.4) M/uL Hgb (12.0-16.0) g/dL POC Hgb 12.2 (12.0-16.0) g/dl Hct (37-47) % POC Hct 36 L (37-47) % MCV (80-100) fL MCH (25-34) pg MCHC (32-36) g/dL RDW Std Deviation (36.4-46.3) fL RDW Coeff of August (11.5-14.5) % Plt Count (130-400) K/uL MPV (7.4-10.4) fL Immature Gran % (Auto) % Neut % (Auto) % Lymph % (Auto) % [place] % (Auto) % Eos % (Auto) % Baso % (Auto) % Immature Gran # (Auto) (0.00-0.02) K/uL Neut # (Auto) (1.4-6.5) K/uL Lymph # (Auto) (1.2-3.4) K/uL [place] # (Auto) (0.11-0.59) K/uL Eos # (Auto) (0-0.5) K/uL Baso # (Auto) (0-0.2) K/uL Anisocytosis PT (9.0-12.0) Seconds INR (0.9-1.1) POC Sodium 143 (135-144) mEq/L Sodium (136-145) mmol/L POC Potassium 3.9 (3.3-5.0) mEq/L Potassium (3.5-5.1) mmol/L POC Chloride 102 (101-112) mEq/L Chloride (98-107) mmol/L Carbon Dioxide (21-32) mmol/L POC Total CO2 29 (24-31) mEq/l Anion Gap (3-11) POC Anion Gap 17.0 (16-25) mmol/L POC BUN 28 H (7-18) mg/dl BUN (7-18) mg/dl Creatinine (0.6-1.2) mg/dl POC Creatinine 1.1 (0.6-1.3) mg/dl Est Cr Clr Drug Dosing ml/min Est GFR ( Amer) Est GFR (Non-Af Amer) BUN/Creatinine Ratio (10-20) Glucose (70-99) mg/dl POC Glucose (other) 128 H (70-99) mg/dl POC Lactic Acid Deion 1.08 (0.90-1.70) mmol/L Calcium (8.5-10.1) mg/dl POC Ioniz Calcium Jerardo 1.17 (1.12-1.32) mmol/l Magnesium (1.8-2.4) mg/dl Total Bilirubin (0.2-1) mg/dl AST (15-37) U/L ALT (12-78) U/L Alkaline Phosphatase (45-117) U/L Troponin I (0-0.045) ng/ml Total Protein (6.4-8.2) gm/dl Albumin (3.4-5.0) gm/dl Globulin (2.5-4.0) gm/dl Albumin/Globulin Ratio (0.9-2) TSH (0.300-4.500) uIu/ml Urine Color Toutle Urine Appearance Cloudy H (Clear) Urine pH >= 9.0 H (4.5-7.5) Ur Specific [place] 1.012 (1.000-1.030) Urine Protein 2+ H (Negative) Urine Glucose (UA) Negative (Negative) Urine Ketones Negative (Negative) Urine Blood 1+ H (Negative) Urine Nitrite Negative (Negative) Urine Bilirubin Negative (Negative) Urine Urobilinogen Negative (Negative) Ur Leukocyte Esterase 2+ H (Negative) Urine WBC (Auto) >30 H (0-5) /hpf Urine RBC (Auto) 0-4 (0-4) /hpf U Hyaline Cast (Auto) 1-5 (0-5) /lpf U Epithel Cells (Auto) 0-5 (0-5) /lpf Urine Bacteria (Auto) 1+ H (Negative) Administered Medications Ioversol (Optiray 320 100ml) 93 ml IV ONCE PRN PRN Reason: Interaction Checking Stop: 05/12/18 15:07 Last Admin: 05/08/18 15:08 Dose: 93 ml Discontinued Medications Ceftriaxone Sodium (Rocephin) 1,000 mg in 50 mls @ 100 mls/hr IV NOW STA Stop: 05/08/18 14:34 Last Infusion: 05/08/18 14:50 Dose: 0 mls/hr Admin: 05/08/18 14:09 Dose: 100 mls/hr Imaging Data Radiologist's Impression: Radiology results as stated below per my review and the radiologist's interpretation: XR chest 1V portable HISTORY: weakness COMPARISON: Chest 04/23/2018. FINDINGS: The heart remains enlarged. Moderate hiatus hernia persists. No pneumothorax. No pleural effusions. No focal lung consolidations to suggest pneumonia. No evidence for pulmonary edema. Left apical density is likely due to the overlapping first rib. IMPRESSION: Stable mild cardiomegaly. Electronically signed by: Nitish Villeda M.D. 05/08/2018 2:05 PM ECG Data Attestation: I personally reviewed and interpreted this ECG as follows: Indication: altered mental status Rate (beats per minute): 60 Rhythm: normal sinus Findings: no PAC, no PVC, no ST depression, no ST elevation and no acute ischemic change Blood Pressure Blood Pressure Findings: Elevated blood pressure Blood Pressure Disposition: further management by hospitalist Discharge Plan Visit Data Chief Complaint: Lethargic ED Provider: Atilio Fernandez Discharge Problem: Altered mental status, UTI (urinary tract infection) Patient Disposition: Being Evaluated by Hospitalist Forms Stand Alone Forms: My [facility] Prescriptions Prescriptions: No Action triamcinolone acetonide 0.5 % Cream 1 applic TOPICAL TID RF: 0 losartan 100 mg Tablet 100 mg PO DAILY RF: 0 colestipol 1 gram Tablet 1 g PO BID RF: 0 ferrous sulfate 325 mg (65 mg iron) tablet,delayed release (DR/EC) 325 mg PO BID RF: 0 mirtazapine 7.5 mg Tablet 7.5 mg PO HS RF: 0 potassium chloride 10 mEq Capsule, Extended Release 10 meq PO BID RF: 0 cholecalciferol (vitamin D3) 50,000 unit Tablet 50,000 units PO WK RF: 0 amiodarone 200 mg Tablet 200 mg PO DIRECTED Qty: 100 RF: 1 metoprolol succinate 50 mg Tablet Extended Release 24 Hr 25 mg PO HS Qty: 30 RF: 2 enoxaparin 40 mg/0.4 mL Syringe 40 mg subcut Q24H 21 Days Qty: 21 RF: 0 risperidone 0.5 mg Tablet,Disintegrating 0.5 mg PO HS Qty: 30 RF: 1 white petrolatum-mineral oil [Artificial Tears (john/min)] 83-15 % Ointment 1 applic ophthalmic (eye) TID Qty: 1 RF: 0 acetaminophen [Tylenol] 325 mg Tablet 650 mg PO Q6H PRN (Reason: Pain) Qty: 60 RF: 0 hydrocolloid dressing [DuoDERM Hydroactive] Paste 1 dose Topical UD Qty: 0 RF: 0 metoprolol succinate 25 mg tablet extended release 24 hr 50 mg PO QAM Qty: 30 RF: 2 omeprazole 20 mg capsule,delayed release(DR/EC) 20 mg PO DAILY Qty: 30 RF: 2 aspirin 325 mg tablet 325 mg PO BID 21 Days Qty: 42 RF: 0 Referrals Referrals: Yonny Cullen MD [Primary Care Provider] - The scribe's documentation has been prepared under my direction and personally reviewed by me in its entirety. I confirm that the note above accurately reflects all work, treatment, procedures, and medical decision making performed by me.
[2018-05-08] MEDS ORDERED: SODIUM CHLORIDE 0.9% 1000ML 1,000 ML IV STA (15:54)
--- NOTE | 2018-05-08 16:50 | Ultrasound Report ---
BILATERAL LOWER EXTREMITY VENOUS DOPPLER CLINICAL HISTORY: Tachypnea. Chest pain. Recent hip surgery. COMPARISON STUDY: No previous studies for comparison. TECHNIQUE: Sonography of the deep venous system of the bilateral lower extremities was performed. Co mpression and augmentation were evaluated. FINDINGS: The bilateral common femoral, superficial femoral and popliteal veins were compressible. A ugmentation was normal. Flow was shown within the deep calf vessels. IMPRESSION: No evidence of deep venous thrombus within the bilateral lower extremities. Electronically signed by: Amador Suresh M.D. 05/08/2018 4:49 PM
--- NOTE | 2018-05-08 17:36 | History & Physical Report ---
Date of Service May 08, 2018 Assessment & Plan (1) Altered mental status: report lethargy increasing over 2-3 days. Per , at baseline , she will answer some yes/no questions, answer other questions with nonsense responses, and fidget. She will recognize her and son consistently. At present, she actually awakes to her name and answers a few of my ROS questions appropriately, so I do wonder how far from baseline she is. - Treat UTI - Hold sedating medications (e.g. mirtazapine) - Monitor mental status (2) UTI (urinary tract infection): UA on 05/08 showed leuk esterase, WBCs, and bacteria. Also had WBCs to 15. However, no complaints of lower abdominal pain or dysuria. - Ceftriaxone - Follow up urine culture (3) NÉSTOR (acute kidney injury): Baseline Cr is ~0.65 with Cr on admission at 1.2. CrCl 28 and eGFR of 40. BUN:Cr ratio > 20 makes pre-renal most likely cause. - Gentle IV fluids - Hold nephrotoxic medications - Monitor Cr (4) HTN (hypertension), benign: BP in the ED was 140/50; however, HR was only 50. - Lowering metoprolol to prevent bradycardia - Continue losartan 100mg (5) Alzheimer's disease: Per , at baseline, she will answer some yes/no questions, answer other questions with nonsense responses, and fidget. She will recognize her and son consistently. - Presently close to baseline - Holding mirtazapine for lethargy - Continue risperidone (6) Paroxysmal A-fib: Had episode of afib around the time of her prior surgery. EKG on admission showed normal sinus. - Continue amiodarone at 200mg daily - No anticoagulation (7) DVT prophylaxis: Lovenox 40mg daily -> If kidney function worsens, will need to switch to heparin as CrCl is currently 40. History of Present Illness Primary Care Provider: Yonny Cullen MD 87yo F w/ hx of two falls resulting in 2 hip fractures who presents from [facility] for altered mental status and lethargy. Per , she was in her normal state of health beginning this week. However, over the course of the last 2-3 days, she has become increasingly lethargic and tired. Normally the notes that she sleeps a little bit in the morning, wakes up and interacts in the afternoon. He reports that she cannot carry on a conversation at baseline but will at least respond to questions with some gibberish response. She will also look at her to answer questions for her when someone else ask questions. However, over the last 2-3 days she has become increasingly tired. At present she sleeps all day he reports, and he reports having trouble getting any answers out of her. On my interview, she awakes to her name. She reports no chest pain, abdominal pain, musculoskeletal pain, nausea, vomiting, fevers, chills, or shortness of breath. Allergies Allergy/AdvReac Type Severity Reaction Status Date / Time Sulfa (Sulfonamide Allergy Intermediate Hives Verified 05/08/18 14:00 Antibiotics) amoxicillin Allergy Unknown RASH, Verified 05/08/18 14:00 SWELLING - FACE & NECK Penicillins Allergy Unknown RASH, Verified 05/08/18 14:00 SWELLING Home Medications Home Medications Medication Instructions Recorded Confirmed Type colestipol 1 g PO BID 02/23/18 05/08/18 History losartan 100 mg PO DAILY 02/23/18 05/08/18 History triamcinolone acetonide 1 applic TOPICAL TID 02/23/18 05/08/18 History cholecalciferol (vitamin D3) 50,000 units PO WK 04/23/18 05/08/18 History ferrous sulfate 325 mg PO BID 04/23/18 05/08/18 History mirtazapine 7.5 mg PO HS 04/23/18 05/08/18 History potassium chloride 10 meq PO BID 04/23/18 05/08/18 History acetaminophen [Tylenol] 650 mg PO Q6H PRN #60 tab 04/29/18 05/08/18 Rx amiodarone 200 mg PO DIRECTED #100 tab 04/29/18 05/08/18 Rx aspirin 325 mg PO BID 21 Days #42 tab 04/29/18 05/08/18 Rx enoxaparin 40 mg SUBCUT Q24H 21 Days #21 syr 04/29/18 05/08/18 Rx hydrocolloid dressing [DuoDERM 1 dose TOPICAL UD #0 g 04/29/18 05/08/18 Rx Hydroactive] metoprolol succinate 25 mg PO HS #30 tab 04/29/18 05/08/18 Rx metoprolol succinate 50 mg PO QAM #30 tab 04/29/18 05/08/18 Rx omeprazole 20 mg PO DAILY #30 cap 04/29/18 05/08/18 Rx risperidone 0.5 mg PO HS #30 tab 04/29/18 05/08/18 Rx white petrolatum-mineral oil 1 applic OPHTHALMIC (EYE) TID #1 04/29/18 05/08/18 Rx [Artificial Tears (john/min)] btl Past Med/Surg History Medical History Rosacea Impaired fasting glucose History of uterine cancer Urinary incontinence HTN (hypertension), benign Hyperlipidemia AAA (abdominal aortic aneurysm) Infrarenal, 3.5cm Hiatal hernia Per CT scan significant portion of stomach in chest Anemia Alzheimer's disease (Chronic) Chronic diarrhea Lone atrial fibrillation Surgical History History of hysterectomy Status post-operative repair of closed fracture of left hip Family History Other Family history non-contributory Social History marital status: Current Living Situation: Spouse Feels Safe at Home: Yes Smoking Status: Never smoker Second Hand Exposure: No Hx Alcohol Use: No Hx Substance Use: No Beliefs That Will Affect Care: None Preferred Language: Nepali Review of Systems Constitutional: no fever, no chills and no sweats Eyes: no diplopia Ear, Nose, Mouth, Throat: no ear trauma, no nasal discharge and no dental pain Respiratory: no cough, no chest congestion and no dyspnea Cardiovascular: no chest pain, no dyspnea on exertion, no palpitations and no syncope Gastrointestinal: no abdominal pain, no belching, no constipation, no diarrhea/ loose stools, no blood in stools and no melena Musculoskeletal: no back pain, no joint pain and no muscle weakness Integumentary: no rash, no skin ulcer and no erythema Neurologic: no generalized weakness, no loss of sensation, no numbness and no paresthesia Psychiatric: no depression and no anxiety Endocrine: no fatigue, no polydipsia and no polyphagia Physical Exam 2 Vital Signs (Past 24 Hours): Last Vital Signs Temp 37.3 C 05/08/18 13:14 Pulse 52 L 05/08/18 16:46 Resp 30 H 05/08/18 16:46 BP 143/51 H 05/08/18 16:46 Pulse Ox 97 05/08/18 16:46 Constitutional: WD/WN, vitals as above + frail appearing, cooperative and + lethargic Eyes: EOM intact bilaterally; no conjunctival abnormality ENMT: external ear and nose normal, oropharynx normal Neck: trachea midline, no thyromegaly normal visual inspection Respiratory: + labored breathing and + tachypneic; no respiratory distress and no audible wheezes Cardiovascular: RRR, no murmur, no edema Gastrointestinal (Abdomen): Inspection/Auscultation: abdomen normal to inspection; abdomen not distended Musculoskeletal: no cyanosis or clubbing, extremities motor strength 5/5 Skin: no rashes, warm and dry Neurologic: moves all extremities and awake Psychiatric: Orientation: alert, oriented to person and cooperative _ (1) Altered mental status Altered mental status type: unspecified Coma depth: Coma timing: Qualified Code(s): R41.82 - Altered mental status, unspecified (2) UTI (urinary tract infection) Encounter type: Hematuria presence: without hematuria Indwelling urinary catheter type: Urinary tract infection type: site unspecified Qualified Code( s): N39.0 - Urinary tract infection, site not specified (3) Alzheimer's disease Alzheimer's disease onset: late-onset Dementia behavioral disturbance: with behavioral disturbance Qualified Code(s): G30.1 - Alzheimer's disease with late onset; F02.81 - Dementia in other diseases classified elsewhere with behavioral disturbance
[2018-05-08] MEDS ORDERED: HYDROCOLLOID DRESSING TOP SCH (19:46)
[2018-05-08] MEDS: SODIUM CHLORIDE 0.9% 1000ML 1,000 ML IV SCH (20:42)
[2018-05-08] MEDS: ENOXAPARIN INJ 30 MG/0.3 ML SYR SQ SCH (20:43)
[2018-05-08] MEDS: ARTIFICIAL TEARS OP OINT 3.5 GM TUBE OP SCH (20:43)
[2018-05-08] MEDS: risperiDONE ODT 0.5 MG SOLTAB PO SCH (20:44)
[2018-05-08] MEDS: COLESTIPOL HCL 1 GM TAB PO SCH (20:44)
[2018-05-09] MEDS: SODIUM CHLORIDE 0.9% 1000ML 1,000 ML IV SCH ×2 (04:35→17:09)
[2018-05-09] MEDS: ACETAMINOPHEN 325 MG TAB PO PRN ×2 (04:45→16:03)
[2018-05-09 06:29] LABS: Hematocrit (blood only) 33.3 % (37-47); Hemoglobin 10.4 g/dL (12.0-16.0); Mean Corpuscular Hgb Conc 31.2 g/dL (32-36); Mean Platelet Volume 9.3 fL (7.4-10.4); Platelet Count 229 K/uL (130-400); RDW Coefficient of Variation 23.1 % (11.5-14.5); RDW Standard Deviation 74.2 fL (36.4-46.3); Red Blood Count 3.87 M/uL (4.2-5.4); White Blood Count 11.78 K/uL (4.8-10.8)
[2018-05-09 06:58] LABS: BUN Creatinine Ratio 30.2 (10-20); Calcium 8.5 mg/dl (8.5-10.1); Creatinine Clr Calc Pharmacy 35.1 ml/min; Est GFR (African American) 61.7; Est GFR (Non-African American) 53.3; Magnesium 2.1 mg/dl (1.8-2.4); Potassium 3.6 mmol/L (3.5-5.1)
[2018-05-09] MEDS: METOPROLOL SUCC 50MG EXT REL TAB PO SCH (09:31)
[2018-05-09] MEDS: AMIODARONE 200 MG TAB PO SCH (09:31)
[2018-05-09] MEDS: LOSARTAN POTASSIUM 50 MG TAB PO SCH (09:31)
[2018-05-09] MEDS: ARTIFICIAL TEARS OP OINT 3.5 GM TUBE OP SCH ×3 (09:31→20:12)
[2018-05-09] MEDS: COLESTIPOL HCL 1 GM TAB PO SCH ×3 (09:31→20:40)
[2018-05-09] MEDS: CEFEPIME 1,000 MG in SYRINGE 0 ML IV SCH ×2 (10:09→20:12)
[2018-05-09] MEDS: LACTOBACILLUS ACIDOPHILUS (FLORANEX) TAB PO SCH ×2 (11:46→15:48)
[2018-05-09] MEDS ORDERED: cefTRIAXone SODIUM 1,000 MG in DEXTROSE 5% 50 ML IV SCH (14:00)
[2018-05-09] MEDS: ENOXAPARIN INJ 30 MG/0.3 ML SYR SQ SCH (20:12)
[2018-05-09] MEDS: risperiDONE ODT 0.5 MG SOLTAB PO SCH (20:13)
--- NOTE | 2018-05-09 21:05 | Hospitalist Progress Note ---
Date of Service May 09, 2018 Assessment & Plan (1) Septicemia: due to gram negative nir UTI. blood cultures positive. will repeat 2 sets of cultures today to ensure sterility. change rocephin to cefepime - at risk of MDR pathogens in light of recent hospital stay, recent patino usage, etc. follow blood/urine cx's. repeat labs in am. Present on Admission?: Yes (2) UTI (urinary tract infection): had e. coli and alpha strep UTI during prior admission, treated adequately. now with recurrent UTI. 2018 CT abd/pelvis without urinary tract pathology or renal stones. follow cultures. change abx as noted above. suspect recent patino usage, incontinence in setting of dementia, etc are major risk factors for recurrent UTI. Present on Admission?: Yes (3) NÉSTOR (acute kidney injury): resolved 2nd to sepsis Present on Admission?: Yes (4) Paroxysmal A-fib: during prior hospital stay had multiple runs of rapid a. fib, largely asymptomatic, but rates were often >150. decision made to place on amiodarone for rhythm control. HRs excellent this admission. no signs of recurrent a. fib. cont BB and amiodarone. decision made during prior hospital stay NOT to anticoagulate by family. consult cardiology while here. no signs of CHF. (5) Altered mental status: likely due to UTI and septicemia - improved. cont chronic risperdal for dementia-related psychosis. (6) Dementia: mod-severe dementia at baseline. avoid benzos. (7) Closed right hip fracture: recent right hip fracture s/p repair by Dr. Emre Jerry, [facility]. was to see him in office this week. family requesting consult while she is here. incision looks great. cont lovenox DVT proph. WBAT as to right leg. (8) DVT prophylaxis: lovenox (9) HTN (hypertension), benign: control acceptable at this time family updated today Subjective family at bedside (, daughter) they confirm she is "doing good today" calm, talking a little due to pt's dementia she is unable to offer any history or ROS staff report she refused her meds this am but she has done this on prior admissions Review of Systems Unobtainable due to cognitive status Physical Exam 2 Vital Signs (Past 24 Hours): Last Vital Signs Temp 36.7 C 05/09/18 15:02 Pulse 41 L 05/09/18 15:02 Resp 20 05/09/18 15:02 BP 169/99 H 05/09/18 15:02 Pulse Ox 95 05/09/18 15:02 Constitutional: WD/WN, vitals as above no acute distress ENMT: external ear and nose normal, oropharynx normal Respiratory: normal respiratory effort, lungs clear to auscultation Auscultation: + rales (minimal bases) Cardiovascular: Rate/Rhythm: regular rhythm and + bradycardic Heart Sounds : normal S1 and normal S2; no murmur Vessels: posterior tibial pulses present and dorsalis pedis pulses present; no JVD Extremities: + edema (<1+ b /l) Gastrointestinal (Abdomen): normal bowel sounds, soft, nontender, no hepatosplenomegaly Musculoskeletal: right hip incision clean, no drainage, no erythema Psychiatric: Orientation: alert; + not oriented x 3 Results & Data Laboratory Results Laboratory Results - last 24 hr 05/09/18 05/09/18 05:46 05:46 WBC 11.78 H RBC 3.87 L Hgb 10.4 L Hct 33.3 L MCV 86.0 MCH 26.9 MCHC 31.2 L RDW Std Deviation 74.2 H RDW Coeff of August 23.1 H Plt Count 229 MPV 9.3 Sodium 145 Potassium 3.6 Chloride 111 H Carbon Dioxide 27 Anion Gap 7.0 BUN 29 H Creatinine 0.97 Est Cr Clr Drug Dosing 35.1 Est GFR ( Amer) 61.7 Est GFR (Non-Af Amer) 53.3 BUN/Creatinine Ratio 30.2 H Glucose 104 H Calcium 8.5 Magnesium 2.1 blood and urine cultures were gram negative rods _ (1) UTI (urinary tract infection) Encounter type: Hematuria presence: without hematuria Indwelling urinary catheter type: Urinary tract infection type: site unspecified Qualified Code( s): N39.0 - Urinary tract infection, site not specified (2) Altered mental status Altered mental status type: unspecified Coma depth: Coma timing: Qualified Code(s): R41.82 - Altered mental status, unspecified (3) Dementia Alzheimer's disease onset: unspecified onset Dementia behavioral disturbance : without behavioral disturbance Dementia type: Alzheimer's disease Qualified Code(s): G30.9 - Alzheimer's disease, unspecified; F02.80 - Dementia in other diseases classified elsewhere without behavioral disturbance (4) Closed right hip fracture Encounter type: initial encounter Fracture healing: Qualified Code(s): S72.001A - Fracture of unspecified part of neck of right femur, initial encounter for closed fracture
[2018-05-10] MEDS: SODIUM CHLORIDE 0.9% 1000ML 1,000 ML IV SCH (05:41)
[2018-05-10 06:58] LABS: Hematocrit (blood only) 31.4 % (37-47); Mean Corpuscular Hgb Conc 31.8 g/dL (32-36); Mean Corpuscular Volume 85.8 fL (80-100); Platelet Count 228 K/uL (130-400); RDW Coefficient of Variation 22.7 % (11.5-14.5); RDW Standard Deviation 72.3 fL (36.4-46.3); Red Blood Count 3.66 M/uL (4.2-5.4); White Blood Count 7.71 K/uL (4.8-10.8)
[2018-05-10 07:35] LABS: BUN Creatinine Ratio 34.9 (10-20); Creatinine Clr Calc Pharmacy 46.6 ml/min; Est GFR (Non-African American) 75.1; Potassium 3.4 mmol/L (3.5-5.1)
[2018-05-10] MEDS: AMIODARONE 200 MG TAB PO SCH (08:12)
[2018-05-10] MEDS: LACTOBACILLUS ACIDOPHILUS (FLORANEX) TAB PO SCH ×3 (08:12→18:03)
[2018-05-10] MEDS: LOSARTAN POTASSIUM 50 MG TAB PO SCH (08:13)
[2018-05-10] MEDS: ARTIFICIAL TEARS OP OINT 3.5 GM TUBE OP SCH ×3 (08:13→20:23)
[2018-05-10] MEDS: METOPROLOL SUCC 50MG EXT REL TAB PO SCH (08:13)
[2018-05-10] MEDS: CEFEPIME 1,000 MG in SYRINGE 0 ML IV SCH (08:24)
[2018-05-10] MEDS: ERTAPENEM SODIUM 1,000 MG in SODIUM CHLORIDE 0.9% 50 ML IV SCH (10:02)
[2018-05-10] MEDS: POTASSIUM CHLORIDE 10 MEQ TABCR PO SCH (10:03)
[2018-05-10] MEDS: COLESTIPOL HCL 1 GM TAB PO SCH ×3 (10:03→20:24)
--- NOTE | 2018-05-10 13:25 | Orthopedic Progress Note ---
Date of Service May 10, 2018 Assessment & Plan (1) Septicemia: Wound covered with steri-strips. Cont OOB WBAT on Rt LE with walker assistance. Discussed patient with Dr. Jerry I, Dr. Jerry, saw and examined the patient and discussed the management with my PA. I reviewed my PA�s note and agree with the documented findings and the plan of care I developed. Please recall if there is any orthopedic issues. The patient may otherwise follow up in the office in 3 weeks. Subjective This pleasant 87 yo F was seen this AM to evaluate her Rt hip. She underwent a Right hip fracture correction with a bipolar implant approx [address] Jerry. Pt was admitted back into hospital due to altered mental status due to probable septicemia. Pt was resting in bed comfortable. She only complains of pain in the hip when the nurses roll her. Otherwise she denies CP, SOB, nausea , vomiting, fever, chills or sweats. Physical Exam 2 Vital Signs (Past 24 Hours): Last Vital Signs Temp 36.8 C 05/10/18 07:27 Pulse 61 05/10/18 07:27 Resp 15 05/10/18 07:27 BP 168/79 H 05/10/18 07:27 Pulse Ox 93 05/10/18 07:27 Physical Exam: Right hip: incision site closed completely w/o fluctuance or drainage. NO dressing in place. Unable to perform SLRT. No pain with passive SLRT, light abd/adduction. Neg log roll. Active knee ROM 0-90 w/o diffculty. NV intact in Rt LE. Periph pulses easily palpable. 1-2+ Edema in foot/ankle
--- NOTE | 2018-05-10 13:29 | Cardiology Consultation ---
Date of Consultation May 10, 2018 Assessment & Plan (1) Paroxysmal A-fib: Patient appears to be maintaining sinus rhythm. She is not currently on telemetry, but overall heart rates have been normal or low and her examination suggests a sinus rhythm. She appears to be tolerating medical therapy well. She does have an element of mild bradycardia and it seems that her evening dose of metoprolol has been discontinued. I think that is reasonable. She will continue on 200 mg daily of amiodarone. Serum studies performed at the time admission did not reveal any evidence of transaminitis related to amiodarone. Her TSH was elevated. This would seem to be quite in early development of hypothyroidism after initiating amiodarone. This may be related to other factors. Will defer supplementation to the primary service. Her heart rates can be followed in the outpatient setting. I did discuss the option of anticoagulation with the patient's family. At this point they wish to defer anticoagulation despite the increased risk of stroke. Present on Admission?: No (2) Valvular heart disease: She has an element of both aortic and mitral regurgitation. This is not appear to have compromised left ventricular function. She certainly not symptomatic. Given her other comorbidities she will likely never be a candidate for any valve procedure even with progression. History of Present Illness Reason for Consultation: Atrial fibrillation Requesting Physician: Ashwini Attending Physician: Arpan Maradiaga History of Present Illness The patient is an 87-year-old woman with a history of Alzheimer's dementia and atrial fibrillation who is currently admitted to [facility] for mental status changes associated with urinary tract infection. Patient was noted at the time of operative intervention for a left hip fracture in January 2018 to have atrial fibrillation. Episode of atrial fibrillation at that time resulted in rapid ventricular response but converted spontaneously. Unfortunately, the patient was readmitted to [facility] in March of 2018 with a right hip fracture. She was also noted during that hospitalization have brief episodes of atrial fibrillation and associated high ventricular rates. She was subsequently started on amiodarone and beta- blockade was continued. Currently, the patient claims to be feeling well. She will respond to questions and answers appropriately. However, much of the history was obtained from family members were present for today's interview. She denies any breathing difficulty although according to the family at the time of admission she did appear dyspneic. She has not had symptoms of chest discomfort. She has not been complaining of palpitations. She is currently not ambulatory but can apparently transfer from the bed to the chair with assistance. Her mentation was not good at the time of admission but has improved. She had little appetite at the time [place] but today was able to eat some of her lunch. Allergies Allergy/AdvReac Type Severity Reaction Status Date / Time Sulfa (Sulfonamide Allergy Intermediate Hives Verified 05/08/18 14:00 Antibiotics) amoxicillin Allergy Unknown RASH, Verified 05/08/18 14:00 SWELLING - FACE & NECK Penicillins Allergy Unknown RASH, Verified 05/08/18 14:00 SWELLING Home Medications Home Medications Medication Instructions Recorded Confirmed Type colestipol 1 g PO BID 02/23/18 05/08/18 History losartan 100 mg PO DAILY 02/23/18 05/08/18 History triamcinolone acetonide 1 applic TOPICAL TID 02/23/18 05/08/18 History cholecalciferol (vitamin D3) 50,000 units PO WK 04/23/18 05/08/18 History ferrous sulfate 325 mg PO BID 04/23/18 05/08/18 History mirtazapine 7.5 mg PO HS 04/23/18 05/08/18 History potassium chloride 10 meq PO BID 04/23/18 05/08/18 History acetaminophen [Tylenol] 650 mg PO Q6H PRN #60 tab 04/29/18 05/08/18 Rx amiodarone 200 mg PO DIRECTED #100 tab 04/29/18 05/08/18 Rx aspirin 325 mg PO BID 21 Days #42 tab 04/29/18 05/08/18 Rx enoxaparin 40 mg SUBCUT Q24H 21 Days #21 syr 04/29/18 05/08/18 Rx hydrocolloid dressing [DuoDERM 1 dose TOPICAL UD #0 g 04/29/18 05/08/18 Rx Hydroactive] metoprolol succinate 25 mg PO HS #30 tab 04/29/18 05/08/18 Rx metoprolol succinate 50 mg PO QAM #30 tab 04/29/18 05/08/18 Rx omeprazole 20 mg PO DAILY #30 cap 04/29/18 05/08/18 Rx risperidone 0.5 mg PO HS #30 tab 04/29/18 05/08/18 Rx white petrolatum-mineral oil 1 applic OPHTHALMIC (EYE) TID #1 04/29/18 05/08/18 Rx [Artificial Tears (john/min)] btl Patient History Medical History Rosacea Impaired fasting glucose History of uterine cancer Urinary incontinence HTN (hypertension), benign Hyperlipidemia AAA (abdominal aortic aneurysm) Infrarenal, 3.5cm Hiatal hernia Per CT scan significant portion of stomach in chest Anemia Alzheimer's disease (Chronic) Chronic diarrhea Lone atrial fibrillation Surgical History History of hysterectomy Status post-operative repair of closed fracture of left hip Family History Other Family history non-contributory Social History marital status: Current Living Situation: Spouse Other Information That Helps Us Care for You: No Feels Safe at Home: Yes Safety Concerns: Feels Safe At This Time Smoking Status: Never smoker Second Hand Exposure: No Hx Alcohol Use: No Hx Substance Use: No Beliefs That Will Affect Care: None Communication Ability: Unable Review of Systems The patient did answer questions regarding several symptoms, however the validity these answers is unclear Physical Exam 2 Vital Signs (Past 24 Hours): Last Vital Signs Temp 36.8 C 05/10/18 07:27 Pulse 61 05/10/18 07:27 Resp 15 05/10/18 07:27 BP 168/79 H 05/10/18 07:27 Pulse Ox 93 05/10/18 07:27 Physical Exam: She is alert and oriented to person only. Mood affect appear normal. She answered all questions appropriately. HEENT: Sclerae are anicteric. Pupils are equal and reactive to light and accommodation. Extraocular movements were intact. Neuro: Cranial nerves intact Neck: Examination of the submandibular region did not reveal any significant lymphadenopathy. Carotids are palpable bilaterally and free of bruits on auscultation. There was no evidence of jugular venous distention. The thyroid was not enlarged. Lungs: Lungs are clear to auscultation bilaterally. There are no rales wheezes or rhonchi. She has normal respiratory effort without use of accessory muscles. There is normal pulmonary excursion. Cardiac: The rhythm was regular. S1 and S2 were normal. Crescendo de crescendo systolic murmur. The PMI was not markedly displaced on palpation. Abdomen: The abdomen was soft and nontender. Extremities: Patient has bilateral radial pulses that are equal in intensity. There is no evidence cyanosis or clubbing. Mild lower extremity edema bilaterally. Skin: There are no rashes noted on examination today. Results & Data Laboratory Results Abnormal Lab Results 05/10/18 05/10/18 06:27 06:27 WBC 7.71 RBC 3.66 L Hgb 10.0 L Hct 31.4 L MCV 85.8 MCH 27.3 MCHC 31.8 L RDW Std Deviation 72.3 H RDW Coeff of August 22.7 H Plt Count 228 MPV 9.0 Sodium 142 Potassium 3.4 L Chloride 112 H Carbon Dioxide 24 Anion Gap 6.0 BUN 25 H Creatinine 0.73 Est Cr Clr Drug Dosing 46.6 Est GFR ( Amer) 87.0 Est GFR (Non-Af Amer) 75.1 BUN/Creatinine Ratio 34.9 H Glucose 94 Calcium 8.0 L Diagnostic Findings Echocardiogram obtained during last admission revealed borderline reduced LV systolic function. There was both aortic and mitral regurgitation. Head and chest CT were obtained at the time of admission. No acute abnormalities. Lower extremity venous duplex in order to exclude DVT was normal ECG Additional Comments: EKG obtained at the time admission revealed a sinus rhythm with nonspecific ST and T-wave changes.
[2018-05-10] MEDS: ACETAMINOPHEN 325 MG TAB PO PRN (15:54)
[2018-05-10] MEDS: RISPERIDONE ODT 1MG PO SCH (20:23)
[2018-05-10] MEDS: ENOXAPARIN INJ 40 MG/0.4 ML SYR SQ SCH (20:24)
--- NOTE | 2018-05-10 20:31 | Hospitalist Progress Note ---
Date of Service May 10, 2018 Assessment & Plan (1) Septicemia: due to UTI. urine cx with MDR, ESBL e. coli & proteus. blood cultures with GNR - remains to be seen if the pathogen in blood is the e. coli or proteus; suspect it will be the e. coli. change cefepime to ertapenem 1gm daily. blood cx results will dictate final abx selection but suspect we may be looking at 2-week course of ertapenem. repeat cultures from 05/09 ---- 03/30 sets + for GNR. will repeat her cultures AM of 05/11. despite septicemia she is quite stable and well. (2) UTI (urinary tract infection): had e. coli and alpha strep UTI during prior admission, treated adequately. now with recurrent UTI - 2nd to ESBL e. coli & proteus. suspect hospital-acquired from prior hospitalization or acquired at SNF. 2018 CT abd/pelvis without urinary tract pathology or renal stones. change to ertapenem - will cover both pathogens. suspect recent patino usage, incontinence in setting of dementia, health-care exposure, etc are major risk factors for recurrent UTI. (3) NÉSTOR (acute kidney injury): resolved 2nd to sepsis (4) Paroxysmal A-fib: during prior hospital stay had multiple runs of rapid a. fib, largely asymptomatic, but rates were often >150. decision made to place on amiodarone for rhythm control. HRs excellent this admission. no signs of recurrent a. fib. cont BB and amiodarone. BB dose has been decreased from BID to once daily dosing. decision made during prior hospital stay NOT to anticoagulate by family. no signs of CHF. Dr. Medina has seen - pleased with how she is doing; no further recs other than continue amiodarone 200mg daily. (5) Altered mental status: likely due to UTI and septicemia - improved/resolved; seems back to normal baseline (which is one of severe dementia). cont chronic risperdal for dementia-related psychosis. increase to 1mg at HS to help promote better sleep (was up 1/2 of night last pm). (6) Dementia: mod-severe dementia at baseline. avoid benzos. increase risperdal at HS as above. (7) Closed right hip fracture: recent right hip fracture s/p repair by Dr. Emre Jerry, [facility]. was to see him in office this week. I consulted [facility] orth[facility] today - they saw patient in consult; they are pleased thus far w/ her recovery, her incision, etc. cont lovenox DVT proph x 3 weeks, then asa 325 bid x 3 weeks. WBAT as to right leg. PT, OT. (8) HTN (hypertension), benign: control acceptable at this time (9) Abnormal TSH: TSH high 6's check free T4 in am if free T4 is low or low-normal consider replacement Dr. Medina does not feel the amiodarone has caused the abnormal TSH as she has only been on amiodarone about 10 days; I agree with such (10) Chronic kidney disease, stage 3a: BMP am for stability (11) DVT prophylaxis: lois Subjective daughter stayed with patient last pm she slept well from 7pm to 11pm or so and then was awake for the next 4 hours she was not agitated however this am the patient is calm and in good spirits per /daughter patient sitting in chair at bedside eating lunch and smiling no other acute issues Review of Systems Unobtainable due to cognitive status Physical Exam 2 Vital Signs (Past 24 Hours): Last Vital Signs Temp 36.3 C L 05/10/18 16:40 Pulse 55 L 05/10/18 16:40 Resp 15 05/10/18 16:40 BP 173/88 H 05/10/18 16:40 Pulse Ox 95 05/10/18 16:40 Constitutional: WD/WN, vitals as above no acute distress ENMT: external ear and nose normal, oropharynx normal Respiratory: normal respiratory effort, lungs clear to auscultation (scant "dry" rales bases) Cardiovascular: Rate/Rhythm: regular rhythm and + bradycardic Heart Sounds : normal S1 and normal S2; no murmur Vessels: posterior tibial pulses present and dorsalis pedis pulses present; no JVD Extremities: + edema (<1+ b /l) Gastrointestinal (Abdomen): normal bowel sounds, soft, nontender, no hepatosplenomegaly Psychiatric: Orientation: alert; + not oriented x 3 smiling, best she has looked in the numerous visits I have cared for her Results & Data Laboratory Results Laboratory Results - last 24 hr 05/10/18 05/10/18 06:27 06:27 WBC 7.71 RBC 3.66 L Hgb 10.0 L Hct 31.4 L MCV 85.8 MCH 27.3 MCHC 31.8 L RDW Std Deviation 72.3 H RDW Coeff of August 22.7 H Plt Count 228 MPV 9.0 Sodium 142 Potassium 3.4 L Chloride 112 H Carbon Dioxide 24 Anion Gap 6.0 BUN 25 H Creatinine 0.73 Est Cr Clr Drug Dosing 46.6 Est GFR ( Amer) 87.0 Est GFR (Non-Af Amer) 75.1 BUN/Creatinine Ratio 34.9 H Glucose 94 Calcium 8.0 L urine cx - MDR ESBL e. coli; proteus blood cx's - gram negative nir _ (1) UTI (urinary tract infection) Encounter type: Hematuria presence: without hematuria Indwelling urinary catheter type: Urinary tract infection type: site unspecified Qualified Code( s): N39.0 - Urinary tract infection, site not specified (2) Dementia Alzheimer's disease onset: unspecified onset Dementia behavioral disturbance : without behavioral disturbance Dementia type: Alzheimer's disease Qualified Code(s): G30.9 - Alzheimer's disease, unspecified; F02.80 - Dementia in other diseases classified elsewhere without behavioral disturbance (3) Altered mental status Altered mental status type: unspecified Coma depth: Coma timing: Qualified Code(s): R41.82 - Altered mental status, unspecified (4) Closed right hip fracture Encounter type: initial encounter Fracture healing: Qualified Code(s): S72.001A - Fracture of unspecified part of neck of right femur, initial encounter for closed fracture
[2018-05-10] MEDS: AMLODIPINE BESYLATE 5 MG TAB PO SCH (20:55)
[2018-05-11 08:50] LABS: BUN Creatinine Ratio 36.5 (10-20); Calcium 8.7 mg/dl (8.5-10.1); Creatinine Clr Calc Pharmacy 49.3 ml/min; Est GFR (Non-African American) 79.4; Potassium 3.5 mmol/L (3.5-5.1)
[2018-05-11 08:55] LABS: T4 Free Thyroxine 1.16 ng/dl (0.8-1.6)
[2018-05-11] MEDS: LOSARTAN POTASSIUM 50 MG TAB PO SCH (09:53)
[2018-05-11] MEDS: LACTOBACILLUS ACIDOPHILUS (FLORANEX) TAB PO SCH ×3 (09:53→17:43)
[2018-05-11] MEDS: POTASSIUM CHLORIDE 10 MEQ TABCR PO SCH (09:54)
[2018-05-11] MEDS: METOPROLOL SUCC 50MG EXT REL TAB PO SCH (09:54)
[2018-05-11] MEDS: AMIODARONE 200 MG TAB PO SCH (09:55)
[2018-05-11] MEDS: ERTAPENEM SODIUM 1,000 MG in SODIUM CHLORIDE 0.9% 50 ML IV SCH (09:55)
[2018-05-11] MEDS: ARTIFICIAL TEARS OP OINT 3.5 GM TUBE OP SCH ×3 (09:59→20:26)
[2018-05-11] MEDS: COLESTIPOL HCL 1 GM TAB PO SCH ×3 (10:24→22:01)
--- NOTE | 2018-05-11 20:15 | Hospitalist Progress Note ---
Date of Service May 11, 2018 Assessment & Plan (1) Septicemia: Secondary to ESBL UTI. Had tachypnea and leukocytosis on admission with source being UTI and bacteremia urine cx with ESBL E. coli & Proteus. BCx with ESBL E. coli, repeat blood cultures now with gram-negative rods -Continue ertapenem 1 g daily-will need a total of 14 days -Follow repeat blood cultures again from 05/11 to ensure sterility -Will likely need PICC line versus ultrasound-guided peripheral IV once cultures are sterile (2) UTI (urinary tract infection): had e. coli and alpha strep UTI during prior admission, treated adequately. Now with recurrent UTI - 2nd to ESBL E. coli & Proteus. suspect hospital-acquired from prior hospitalization or acquired at SNF. 2018 CT abd/pelvis without urinary tract pathology or renal stones. suspect recent patino usage, incontinence in setting of dementia, health-care exposure, etc are major risk factors for recurrent UTI. -Continue ertapenem as above (3) NÉSTOR (acute kidney injury): resolved Was secondary to sepsis -Follow BMP (4) Paroxysmal A-fib: during prior hospital stay had multiple runs of rapid a. fib, largely asymptomatic, but rates were often >150. decision made to place on amiodarone at that time for rhythm control. HRs excellent this admission and remains in a regular rhythm. no signs of recurrent a. fib. -Cont metoprolol-it appears the shelter changed her to metoprolol tartrate 25 mg twice daily a few days prior to admission-this was not updated appropriately on the home medication reconciliation-I made these changes today. However, she is doing well now on Toprol-XL 50 mg daily-we will continue this dose here -Continue amiodarone 200 mg daily decision made during prior hospital stay NOT to anticoagulate by family. -no signs of CHF. Dr. Medina has seen - pleased with how she is doing; no further recs other than continue amiodarone 200mg daily. (5) Dementia: mod-severe dementia at baseline. avoid benzos. increased risperdal at HS for agitation (6) Closed right hip fracture: recent right hip fracture s/p repair by Dr. Emre Jerry, [facility]. [facility] saw patient in consult; they are pleased thus far w/ her recovery, her incision, etc. cont lovenox DVT proph x 3 weeks, then asa 325 bid x 3 weeks 19. WBAT as to right leg. PT, OT. (7) HTN (hypertension), benign: control acceptable at this time -Continue amlodipine 5 mg daily, losartan 100 mill grams daily, Toprol-XL 50 mg daily (8) Abnormal TSH: TSH high 6's Free T4 is normal Dr. Medina does not feel the amiodarone has caused the abnormal TSH as she has only been on amiodarone about 10 days; I agree with such (9) Chronic kidney disease, stage 3a: BMP am for stability -Avoid nephrotoxins -Renally dose medications Continue ARB (10) Acute metabolic encephalopathy: likely due to UTI and septicemia - improved/resolved; seems back to normal baseline (which is one of severe dementia). cont chronic risperdal for dementia-related psychosis. increase to 1mg at HS to help promote better sleep (was up 1/2 of night last pm). (11) DVT prophylaxis: lovenox as above Disposition-remain in hospital until blood cultures negative times 48 hours, [address] long-term indwelling IV and discharge back to shelter Subjective Patient has no complaints, however family notes that she gets very agitated and seems to be in pain if anybody tries to roll her. She refused to get out of bed to chair today. Has been reports she has not been walking that he is ever seen since she has been at rehab since her last hip surgery. She continues to refuse physical therapy there. Patient denies chest pain or shortness of breath to me. She is eating a little bit today. Review of Systems Unobtainable due to cognitive status Physical Exam 2 Vital Signs (Past 24 Hours): Last Vital Signs Temp 36.5 C 05/11/18 14:39 Pulse 53 L 05/11/18 14:39 Resp 18 05/11/18 14:39 BP 145/77 H 05/11/18 14:39 Pulse Ox 95 05/11/18 14:39 Constitutional: WD/WN, vitals as above Eyes: PERRL, conjunctivae normal, anicteric sclerae ENMT: external ear and nose normal, oropharynx normal Neck: trachea midline, no thyromegaly Respiratory: normal respiratory effort, lungs clear to auscultation Cardiovascular: RRR, no murmur, no edema Gastrointestinal (Abdomen): normal bowel sounds, soft, nontender, no hepatosplenomegaly Musculoskeletal: Extremities: + extremities abnormal to inspection (Right hip with Steri-Strips in place, mild amount of edema over the lateral right hip), no cyanosis and no clubbing Skin: no rashes, warm and dry Neurologic: moves all extremities and awake; no focal motor deficits Psychiatric: Orientation: alert, oriented to person and cooperative Results & Data Laboratory Results 05/11/18 05/11/18 Range/Units 16:54 07:40 Sodium 143 (136-145) mmol/L Potassium 3.5 (3.5-5.1) mmol/L Chloride 110 H (98-107) mmol/L Carbon Dioxide 25 (21-32) mmol/L Anion Gap 8.0 (3-11) BUN 25 H (7-18) mg/dl Creatinine 0.69 (0.6-1.2) mg/dl Est Cr Clr Drug Dosing 49.3 ml/min Est GFR ( Amer) 92.0 Est GFR (Non-Af Amer) 79.4 BUN/Creatinine Ratio 36.5 H (10-20) Glucose 101 H (70-99) mg/dl POC Glucose 125 H (70-99) Calcium 8.7 (8.5-10.1) mg/dl Free T4 1.16 (0.8-1.6) ng/dl _ (1) UTI (urinary tract infection) Encounter type: Hematuria presence: without hematuria Indwelling urinary catheter type: Urinary tract infection type: site unspecified Qualified Code( s): N39.0 - Urinary tract infection, site not specified (2) Dementia Alzheimer's disease onset: unspecified onset Dementia behavioral disturbance : without behavioral disturbance Dementia type: Alzheimer's disease Qualified Code(s): G30.9 - Alzheimer's disease, unspecified; F02.80 - Dementia in other diseases classified elsewhere without behavioral disturbance (3) Closed right hip fracture Encounter type: initial encounter Fracture healing: Qualified Code(s): S72.001A - Fracture of unspecified part of neck of right femur, initial encounter for closed fracture
[2018-05-11] MEDS: RISPERIDONE ODT 1MG PO SCH (20:26)
[2018-05-11] MEDS: AMLODIPINE BESYLATE 5 MG TAB PO SCH (20:27)
[2018-05-11] MEDS: ENOXAPARIN INJ 40 MG/0.4 ML SYR SQ SCH (20:28)
[2018-05-12] MEDS: ACETAMINOPHEN 325 MG TAB PO PRN ×2 (01:56→15:28)
[2018-05-12] MEDS: LOSARTAN POTASSIUM 50 MG TAB PO SCH (08:45)
[2018-05-12] MEDS: POTASSIUM CHLORIDE 10 MEQ TABCR PO SCH (08:45)
[2018-05-12] MEDS: ARTIFICIAL TEARS OP OINT 3.5 GM TUBE OP SCH ×3 (08:46→20:01)
[2018-05-12] MEDS: LACTOBACILLUS ACIDOPHILUS (FLORANEX) TAB PO SCH (08:46)
[2018-05-12] MEDS: METOPROLOL SUCC 50MG EXT REL TAB PO SCH (08:47)
[2018-05-12] MEDS: AMIODARONE 200 MG TAB PO SCH (08:48)
[2018-05-12] MEDS: ERTAPENEM SODIUM 1,000 MG in SODIUM CHLORIDE 0.9% 50 ML IV SCH (08:48)
[2018-05-12] MEDS ORDERED: FERROUS SULFATE 325 MG TAB PO SCH (09:00)
[2018-05-12] MEDS: METOPROLOL TARTRATE 25 MG TAB PO SCH ×2 (09:55→20:03)
[2018-05-12] MEDS: CHOLESTYRAMINE LIGHT 4 GM PKT PO SCH ×2 (10:07→22:24)
--- NOTE | 2018-05-12 12:22 | Hospitalist Progress Note ---
Date of Service May 12, 2018 Assessment & Plan (1) Septicemia: Secondary to ESBL UTI. Now resolved Had tachypnea and leukocytosis on admission with source being UTI and bacteremia urine cx with ESBL E. coli & Proteus. BCx with ESBL E. coli, repeat blood cultures also with ESBL E. coli -Continue ertapenem 1 g daily-will need a total of 14 days -Follow repeat blood cultures again from 05/11 to ensure sterility-NGTD -Will likely need PICC line versus ultrasound-guided peripheral IV once cultures are sterile-hopefully can place this tomorrow (2) UTI (urinary tract infection): had e. coli and alpha strep UTI during prior admission, treated adequately. Now with recurrent UTI - 2nd to ESBL E. coli & Proteus. suspect hospital-acquired from prior hospitalization or acquired at SNF. 2018 CT abd/pelvis without urinary tract pathology or renal stones. suspect recent patino usage, incontinence in setting of dementia, health-care exposure, etc are major risk factors for recurrent UTI. -Continue ertapenem as above (3) NÉSTOR (acute kidney injury): resolved Was secondary to sepsis (4) Paroxysmal A-fib: during prior hospital stay had multiple runs of rapid a. fib, largely asymptomatic, but rates were often >150. decision made to place on amiodarone at that time for rhythm control. HRs excellent this admission and remains in a regular rhythm. no signs of recurrent a. fib. -Cont metoprolol-it [facility] the [facility] her to metoprolol tartrate 25 mg twice daily a few days prior to admission-this was not updated appropriately on the home medication reconciliation-I made these changes today. This is the better option because it can be crushed and she is having a hard time with swallowing pills -Continue amiodarone 200 mg daily decision made during prior hospital stay NOT to anticoagulate by family. -no signs of CHF. Dr. Medina has seen - pleased with how she is doing; no further recs other than continue amiodarone 200mg daily. (5) Dementia: mod-severe dementia at baseline. avoid benzos. With worsening agitation now -will increase risperdal at HS for agitation again to 2mg (6) Closed right hip fracture: recent right hip fracture s/p repair by Dr. Emre Jerry, [facility]. [facility] saw patient in consult; they are pleased thus far w/ her recovery, her incision, etc. cont lovenox DVT proph x 3 weeks, then asa 325 bid x 3 weeks 19. WBAT as to right leg. PT, OT. (7) HTN (hypertension), benign: control acceptable at this time -Continue amlodipine 5 mg daily, losartan 100 mill grams daily, metoprolol tartrate 25mg po bid (8) Abnormal TSH: TSH high 6's Free T4 is normal Dr. Medina does not feel the amiodarone has caused the abnormal TSH as she has only been on amiodarone about 10 days; I agree with such (9) Chronic kidney disease, stage 3a: Stable -Avoid nephrotoxins -Renally dose medications Continue ARB (10) Acute metabolic encephalopathy: likely due to UTI and septicemia - improved/resolved; seems back to normal baseline (which is one of severe dementia). cont chronic risperdal for dementia-related psychosis. increase to 2mg at HS to help promote better sleep (11) DVT prophylaxis: lovenox as above Disposition-remain in hospital until blood cultures negative times 48 hours, [address] long-term indwelling IV and discharge back to [facility] hopefully tomorrow Subjective Pt very agitated last night and hallucinating today. Upsetting to the daughter and . Said she was awake all night last night-daughter has been staying in the room each night. Pt not able to tell me anything meaningful, is very confused. Points to the bathroom door and says "there are groceries in there." Review of Systems Unobtainable due to cognitive status Physical Exam 2 Vital Signs (Past 24 Hours): Last Vital Signs Temp 36.4 C L 05/12/18 08:00 Pulse 60 05/12/18 08:00 Resp 18 05/12/18 08:00 BP 166/101 H 05/12/18 08:00 Pulse Ox 94 05/12/18 08:00 Constitutional: WD/WN, vitals as above Eyes: PERRL, conjunctivae normal, anicteric sclerae ENMT: external ear and nose normal, oropharynx normal Neck: trachea midline, no thyromegaly Respiratory: normal respiratory effort, lungs clear to auscultation Cardiovascular: RRR, no murmur, no edema Gastrointestinal (Abdomen): normal bowel sounds, soft, nontender, no hepatosplenomegaly Musculoskeletal: Extremities: no cyanosis and no clubbing Skin: no rashes, warm and dry Neurologic: moves all extremities and awake; no focal motor deficits Psychiatric: Orientation: alert; + uncooperative Results & Data Laboratory Results 05/11/18 Range/Units 16:54 POC Glucose 125 H (70-99) _ (1) UTI (urinary tract infection) Encounter type: Hematuria presence: without hematuria Indwelling urinary catheter type: Urinary tract infection type: site unspecified Qualified Code( s): N39.0 - Urinary tract infection, site not specified (2) Dementia Alzheimer's disease onset: unspecified onset Dementia behavioral disturbance : without behavioral disturbance Dementia type: Alzheimer's disease Qualified Code(s): G30.9 - Alzheimer's disease, unspecified; F02.80 - Dementia in other diseases classified elsewhere without behavioral disturbance (3) Closed right hip fracture Encounter type: initial encounter Fracture healing: Qualified Code(s): S72.001A - Fracture of unspecified part of neck of right femur, initial encounter for closed fracture
[2018-05-12] MEDS: LACTOBACILLUS ACIDOPHILUS 1 GM PACK PO SCH ×2 (14:24→18:31)
[2018-05-12] MEDS ORDERED: RISPERIDONE ODT 1MG PO SCH ×2 (19:30)
[2018-05-12] MEDS: ENOXAPARIN INJ 40 MG/0.4 ML SYR SQ SCH (20:04)
[2018-05-12] MEDS: AMLODIPINE BESYLATE 5 MG TAB PO SCH (20:15)
[2018-05-12] MEDS: FERROUS SULFATE 325 MG/7.4 ML UDP PO SCH (21:20)
[2018-05-13 06:45] LABS: BUN Creatinine Ratio 32.7 (10-20); Creatinine Clr Calc Pharmacy 60.8 ml/min; Est GFR (African American) 98.5; Potassium 3.7 mmol/L (3.5-5.1)
[2018-05-13] MEDS: AMIODARONE 200 MG TAB PO SCH (09:17)
[2018-05-13] MEDS: LOSARTAN POTASSIUM 50 MG TAB PO SCH (09:17)
[2018-05-13] MEDS: FERROUS SULFATE 325 MG/7.4 ML UDP PO SCH ×2 (09:18→21:02)
[2018-05-13] MEDS: ERTAPENEM SODIUM 1,000 MG in SODIUM CHLORIDE 0.9% 50 ML IV SCH (09:18)
[2018-05-13] MEDS: POTASSIUM CHLORIDE PWD 20 MEQ PACK PO SCH (09:18)
[2018-05-13] MEDS: METOPROLOL TARTRATE 25 MG TAB PO SCH ×2 (09:19→21:03)
[2018-05-13] MEDS: CHOLESTYRAMINE LIGHT 4 GM PKT PO SCH ×2 (09:20→22:31)
[2018-05-13] MEDS: ARTIFICIAL TEARS OP OINT 3.5 GM TUBE OP SCH ×3 (09:20→21:01)
[2018-05-13] MEDS: LACTOBACILLUS ACIDOPHILUS 1 GM PACK PO SCH ×3 (09:21→17:07)
[2018-05-13] MEDS: ACETAMINOPHEN 325 MG TAB PO PRN (15:02)
--- NOTE | 2018-05-13 16:17 | Hospitalist Progress Note ---
Date of Service May 13, 2018 Assessment & Plan (1) Septicemia: Secondary to ESBL UTI. Now resolved Had tachypnea and leukocytosis on admission with source being UTI and bacteremia urine cx with ESBL E. coli & Proteus. BCx with ESBL E. coli, repeat blood cultures also with ESBL E. coli -Received ertapenem 1 g daily so far, but now without ability to get venous access (IV team not able to get PICC, midline, or ultrasound-guided peripheral IV) and due to family wishes to not pursue central line access or multiple peripheral IV sticks, they would like antibiotics to be discontinued at this time -Follow repeat blood cultures again from 05/11 to ensure sterility-remain NGTD -Plan to transition back to care home and perhaps enroll in hospice in the near future -We will discontinue all planned labs or needle sticks (2) UTI (urinary tract infection): had e. coli and alpha strep UTI during prior admission, treated adequately. Now with recurrent UTI - 2nd to ESBL E. coli & Proteus. suspect hospital-acquired from prior hospitalization or acquired at SNF. 2018 CT abd/pelvis without urinary tract pathology or renal stones. suspect recent patino usage, incontinence in setting of dementia, health-care exposure, etc are major risk factors for recurrent UTI. -Received ertapenem as above but now will discontinue (3) NÉSTOR (acute kidney injury): resolved Was secondary to sepsis (4) Paroxysmal A-fib: during prior hospital stay had multiple runs of rapid a. fib, largely asymptomatic, but rates were often >150. decision made to place on amiodarone at that time for rhythm control. HRs excellent this admission and remains in a regular rhythm. no signs of recurrent a. fib. -Cont metoprolol-it appears the care home changed her to metoprolol tartrate 25 mg twice daily a few days prior to admission-this was not updated appropriately on the home medication reconciliation-I made these changes today. This is the better option because it can be crushed and she is having a hard time with swallowing pills -Continue amiodarone 200 mg daily decision made during prior hospital stay NOT to anticoagulate by family. -no signs of CHF. Dr. Medina has seen - pleased with how she is doing; no further recs other than continue amiodarone 200mg daily. (5) Dementia: mod-severe dementia at baseline. avoid benzos. With worsening agitation and not sleeping at nighttime Change to Seroquel 25 mg p.o. nightly as Risperdal not helping (6) Closed right hip fracture: recent right hip fracture s/p repair by Dr. Emre Jerry, [facility]. [facility] ortho saw patient in consult; they are pleased thus far w/ her recovery, her incision, etc. cont lovenox DVT proph x 3 weeks, then asa 325 bid x 3 weeks 19. WBAT as to right leg although patient not really participating in therapy at this time PT, OT. (7) HTN (hypertension), benign: control acceptable at this time -Continue amlodipine 5 mg daily, losartan 100 mill grams daily, metoprolol tartrate 25mg po bid (8) Abnormal TSH: TSH high 6's Free T4 is normal Dr. Medina does not feel the amiodarone has caused the abnormal TSH as she has only been on amiodarone about 10 days; I agree with such (9) Chronic kidney disease, stage 3a: Stable -Avoid nephrotoxins -Renally dose medications Continue ARB (10) Acute metabolic encephalopathy: likely due to UTI and septicemia -remains with some alteration in mental status from her baseline dementia possibly due to delirium from hospital delirium versus infection versus side effect of medications such as Risperdal -Change Risperdal to Seroquel at bedtime to see if can reset sleep cycles and decrease psychosis (11) DVT prophylaxis: Discontinue Lovenox to reduce needlesticks for comfort Disposition-plan to discharge back to care home tomorrow Subjective Daughter reports patient was up again all night till 4 in the morning and now is very lethargic during the day. The IV team came in to assess her for a PICC line or midline versus an ultrasound-guided peripheral IV and could not get any access on her. They also removed her remaining peripheral IV. After lengthy discussion with the patient's and daughter, they have decided to not attempt any further venous access and to discontinue antibiotics. We discussed her overall declining health, severe dementia, and due to her recent bilateral hip fractures and bedbound status with unwillingness to participate in therapy due to her dementia, her prognosis is poor. is interested in enrolling her in hospice care. He stated repeatedly that "I just want her to be comfortable." Patient is unable to tell me anything meaningful and is very lethargic today. Review of Systems Unobtainable due to cognitive status Physical Exam 2 Vital Signs (Past 24 Hours): Last Vital Signs Temp 36.7 C 05/13/18 15:55 Pulse 56 L 05/13/18 15:55 Resp 20 05/13/18 15:55 BP 135/73 05/13/18 15:55 Pulse Ox 95 05/13/18 15:55 Constitutional: WD/WN, vitals as above Eyes: PERRL, conjunctivae normal, anicteric sclerae ENMT: external ear and nose normal, oropharynx normal Neck: trachea midline, no thyromegaly Respiratory: normal respiratory effort, lungs clear to auscultation Cardiovascular: RRR, no murmur, no edema Gastrointestinal (Abdomen): normal bowel sounds, soft, nontender, no hepatosplenomegaly Musculoskeletal: Extremities: + extremities abnormal to inspection (Right hip with Steri-Strips in place, mild amount of edema over the lateral right hip), no cyanosis and no clubbing Skin: no rashes, warm and dry Neurologic: moves all extremities and awake; no focal motor deficits Psychiatric: Orientation: + not alert and + uncooperative Results & Data Laboratory Results Sodium 142, potassium 3.7, chloride 109, bicarb 28, creatinine 0.56 Blood cultures from 05/11-no growth to date _ (1) UTI (urinary tract infection) Encounter type: Hematuria presence: without hematuria Indwelling urinary catheter type: Urinary tract infection type: site unspecified Qualified Code( s): N39.0 - Urinary tract infection, site not specified (2) Dementia Alzheimer's disease onset: unspecified onset Dementia behavioral disturbance : without behavioral disturbance Dementia type: Alzheimer's disease Qualified Code(s): G30.9 - Alzheimer's disease, unspecified; F02.80 - Dementia in other diseases classified elsewhere without behavioral disturbance (3) Closed right hip fracture Encounter type: initial encounter Fracture healing: Qualified Code(s): S72.001A - Fracture of unspecified part of neck of right femur, initial encounter for closed fracture
[2018-05-13] MEDS ORDERED: QUETIAPINE FUMARATE 25 MG TABLET PO SCH (21:00)
[2018-05-13] MEDS: ENOXAPARIN INJ 40 MG/0.4 ML SYR SQ SCH (21:03)
[2018-05-13] MEDS: AMLODIPINE BESYLATE 5 MG TAB PO SCH (21:04)
[2018-05-14] MEDS: LOSARTAN POTASSIUM 50 MG TAB PO SCH (09:33)
[2018-05-14] MEDS: METOPROLOL TARTRATE 25 MG TAB PO SCH (09:33)
[2018-05-14] MEDS: AMIODARONE 200 MG TAB PO SCH (09:34)
[2018-05-14] MEDS: FERROUS SULFATE 325 MG/7.4 ML UDP PO SCH (09:35)
[2018-05-14] MEDS: LACTOBACILLUS ACIDOPHILUS 1 GM PACK PO SCH ×3 (09:35→18:15)
[2018-05-14] MEDS: POTASSIUM CHLORIDE PWD 20 MEQ PACK PO SCH (09:36)
[2018-05-14] MEDS: ARTIFICIAL TEARS OP OINT 3.5 GM TUBE OP SCH ×2 (09:36→13:55)
[2018-05-14] MEDS: DICLOFENAC SOD 1% GEL 100 GM TUBE EXT SCH ×4 (09:43→18:15)
[2018-05-14] MEDS: CHOLESTYRAMINE LIGHT 4 GM PKT PO SCH (09:46)
[2018-05-14] MEDS: ACETAMINOPHEN 325 MG TAB PO PRN (11:39)
--- NOTE | 2018-05-14 13:30 | Discharge Summary ---
Date of Service May 14, 2018 Admission HPI Per Admitting Provider 87yo F w/ hx of two falls resulting in 2 hip fractures who presents from [facility] for altered mental status and lethargy. Per , she was in her normal state of health beginning this week. However, over the course of the last 2-3 days, she has become increasingly lethargic and tired. Normally the notes that she sleeps a little bit in the morning, wakes up and interacts in the afternoon. He reports that she cannot carry on a conversation at baseline but will at least respond to questions with some gibberish response. She will also look at her to answer questions for her when someone else ask questions. However, over the last 2-3 days she has become increasingly tired. At present she sleeps all day he reports, and he reports having trouble getting any answers out of her. On my interview, she awakes to her name. She reports no chest pain, abdominal pain, musculoskeletal pain, nausea, vomiting, fevers, chills, or shortness of breath. Principal Diagnosis ESBL E. coli septicemia and UTI Discharge Exam Constitutional WD/WN, vitals as above Eyes PERRL, conjunctivae normal, anicteric sclerae Neck trachea midline, no thyromegaly Respiratory normal respiratory effort, lungs clear to auscultation Cardiovascular RRR, no murmur, no edema Gastrointestinal (Abdomen) normal bowel sounds, soft, nontender, no hepatosplenomegaly Musculoskeletal Extremities: + extremities abnormal to inspection (Right hip with Steri-Strips in place, mild amount of edema over the lateral right hip), no cyanosis and no clubbing Skin no rashes, warm and dry Neurologic moves all extremities and awake; no focal motor deficits Psychiatric Orientation: alert and cooperative; + not oriented to place and + not oriented to time Discharge Data Allergies Allergy/AdvReac Type Severity Reaction Status Date / Time Sulfa (Sulfonamide Allergy Intermediate Hives Verified 05/08/18 14:00 Antibiotics) amoxicillin Allergy Unknown RASH, Verified 05/08/18 14:00 SWELLING - FACE & NECK Penicillins Allergy Unknown RASH, Verified 05/08/18 14:00 SWELLING Consultations 05/10/18 08:57 Consult Orthopedic Surgery Routine 05/10/18 12:18 Consult Cardiology Routine 05/13/18 22:22 Consult Case Management - Discharge Planning Routine Ordered Studies 05/08/18 14:04 CT angio chest PE protocol Stat CT head/brain wo con Stat 05/08/18 15:47 US venous doppler LE BI Stat Hospital Course (1) Septicemia: Secondary to ESBL UTI. Now resolved Had tachypnea and leukocytosis on admission with source being UTI and bacteremia urine cx with ESBL E. coli & Proteus. BCx with ESBL E. coli, repeat blood cultures also with ESBL E. coli -Received ertapenem 1 g daily for 5 days, but now without ability to get venous access (IV team not able to get PICC, midline, or ultrasound-guided peripheral IV) and due to family wishes to not pursue central line access or multiple peripheral IV sticks, they would like antibiotics to be discontinued at this time - repeat blood cultures from 05/11 to ensure sterility-remain NGTD -Plan to transition back to intermediate today and enroll in hospice in the near future -We have discontinued all planned labs or needle sticks (2) UTI (urinary tract infection): had e. coli and alpha strep UTI during prior admission, treated adequately. Now with recurrent UTI - 2nd to ESBL E. coli & Proteus. suspect hospital-acquired from prior hospitalization or acquired at SNF. 2018 CT abd/pelvis without urinary tract pathology or renal stones. suspect recent patino usage, incontinence in setting of dementia, health-care exposure, etc are major risk factors for recurrent UTI. -Received ertapenem as above but now will discontinue (3) NÉSTOR (acute kidney injury): resolved Was secondary to sepsis (4) Paroxysmal A-fib: during prior hospital stay had multiple runs of rapid a. fib, largely asymptomatic, but rates were often >150. decision made [address] on amiodarone at that time for rhythm control. HRs excellent this admission and remains in a regular rhythm. no signs of recurrent a. fib. -Cont metoprolol-it appears the intermediate changed her to metoprolol tartrate 25 mg twice daily a few days prior to admission-this was not updated appropriately on the home medication reconciliation-I made these changes today. This is the better option because it can be crushed and she is having a hard time with swallowing pills -Continue amiodarone 200 mg daily decision made during prior hospital stay NOT to anticoagulate by family. -no signs of CHF. Dr. Medina has seen - pleased with how she is doing; no further recs other than continue amiodarone 200mg daily. (5) Dementia: mod-severe dementia at baseline. avoid benzos. With worsening agitation and not sleeping at nighttime Changed to Seroquel 25 mg p.o. nightly as Risperdal not helping-had significant improvement with this medication change in should continue this upon discharge (6) Closed right hip fracture: recent right hip fracture s/p repair by Dr. Emre Jerry, [facility]. [facility] saw patient in consult; they are pleased thus far w/ her recovery, her incision, etc. Was on Lovenox DVT proph x 3 weeks, then asa 325 bid x 3 weeks-however, due to wish for comfort measures, will discontinue Lovenox and begin aspirin only at this time WBAT as to right leg although patient not really participating in therapy at this time PT, OT. (7) HTN (hypertension), benign: control acceptable at this time -Continue amlodipine 5 mg daily, losartan 100 mg daily, metoprolol tartrate 25mg po bid (8) Abnormal TSH: TSH high 6's Free T4 is normal Dr. Medina does not feel the amiodarone has caused the abnormal TSH as she has only been on amiodarone about 10 days; I agree with such (9) Chronic kidney disease, stage 3a: Stable -Avoid nephrotoxins -Renally dose medications Continue ARB (10) Acute metabolic encephalopathy: likely due to UTI and septicemia -remains with some alteration in mental status from her baseline dementia possibly due to delirium from hospital delirium versus infection versus side effect of medications such as Risperdal -Changed Risperdal to Seroquel at bedtime and was beneficial with improving sleep cycles and decreasing daytime psychosis (11) DVT prophylaxis: Discontinue Lovenox to reduce needlesticks for comfort, continue aspirin twice daily Disposition-plan to discharge back to intermediate today Total Time Total Time Spent Total Time Spent (In Minutes): >30 min Total Time Includes: Examination of the Patient, Discharge Planning and Medication Reconciliation Discharge Plan Discharge Items Patient Disposition: Transfer Assisted Fac Reason For Visit: LETHARGY Discharge Diagnosis: ESBL E. coli UTI and septicemia Condition: Fair Discharge Goals: Decrease discomfort, Diagnostic testing, Improve disease control, Learn about illness and Therapeutic intervention Activity: Per 'Additional Instructions' section Weightbearing: Right weightbearing Weightbearing Comment: with assistance of a walker Non-emergency contact: Primary Care Provider and Surgeon Call non-emergency contact if: you have any medication questions, your symptoms worsen, your pain is not controlled, your pain is worsening, your pain is unusual for you, your temperature is above 101, your wound has increased redness and your wound has increased drainage Follow-up/Referrals: Emre Jerry MD [Physician] - 06/09/18 10:45 am Diet: Heart Healthy Addtl Provider Instructions: Mrs. Marino was admitted with lethargy and was found to have a UTI and septicemia with extended spectrum beta lactamase E. coli. She was treated with IV ertapenem for multiple days. She was very lethargic and had delirium on top of her known dementia. She was very weak as well. She was started on Seroquel to replace her Risperdal and had improvement with her sleep at night and less delirium during the daytime. The IV team here was unable to get a long-term indwelling IV in place to finish out a 14-day course of ertapenem after multiple sticks. The and daughter who are the primary decision makers for her care decided that they no longer wanted her to continue on IV antibiotics at this time for her infection. They are interested in possibly enrolling her in hospice at some point in the near future. Weight bear as tolerated right lower extremity with assistance of a walker Allowed for range of motion right lower extremity as joints. Steri-strips right hip wound PRN Allowed to shower/bathe. Call Dr. Jerry ([phone]) with drainage or redness around right hip incision. Prescriptions: New amlodipine [Norvasc] 5 mg Tablet 5 mg PO HS Qty: 30 RF: 0 cholestyramine-aspartame [Cholestyramine Light] 4 gram Powder In Packet 4 g PO BID@1000,2200 Qty: 60 RF: 0 diclofenac sodium [Voltaren] 1 % Gel 1 % EXT QID Qty: 1 RF: 0 quetiapine 25 mg Tablet 25 mg PO HS Qty: 30 RF: 0 potassium chloride 20 mEq Packet 10 meq PO QAM Qty: 30 RF: 0 Continue metoprolol tartrate 25 mg Tablet 25 mg PO BID RF: 0 triamcinolone acetonide 0.5 % Cream 1 applic TOPICAL TID RF: 0 losartan 100 mg Tablet 100 mg PO DAILY RF: 0 ferrous sulfate 325 mg (65 mg iron) tablet,delayed release (DR/EC) 325 mg PO BID RF: 0 cholecalciferol (vitamin D3) 50,000 unit Tablet 50,000 units PO WK RF: 0 white petrolatum-mineral oil [Artificial Tears (john/min)] 83-15 % Ointment 1 applic ophthalmic (eye) TID Qty: 1 RF: 0 acetaminophen [Tylenol] 325 mg Tablet 650 mg PO Q6H PRN (Reason: Pain) Qty: 60 RF: 0 hydrocolloid dressing [DuoDERM Hydroactive] Paste 1 dose Topical UD Qty: 0 RF: 0 omeprazole 20 mg capsule,delayed release(DR/EC) 20 mg PO DAILY Qty: 30 RF: 2 Discontinued colestipol 1 gram Tablet 1 g PO BID RF: 0 potassium chloride 10 mEq Capsule, Extended Release 10 meq PO BID RF: 0 enoxaparin 40 mg/0.4 mL Syringe 40 mg subcut Q24H 21 Days Qty: 21 RF: 0 risperidone 0.5 mg Tablet,Disintegrating 0.5 mg PO HS Qty: 30 RF: 1 Stand-Alone Forms: [facility] Discharge Orders: Discharge Order (Routine); Ordered 05/14/18 Ordered By: Janis Llamas Skilled Items Patient informed of condition?: Yes DNR: Yes Discharge Level of Care: Skilled Communicable Disease: No Discharge Prognosis: Stable Admission Data Admit Date/Time: 05/09/18 11:01 Attending Provider: Janis Llamas Admit Provider: Jorge Alberto Cueva Primary Care Provider: Yonny Cullen Other Providers: Topher Cannon Charles C. Service: Medical Other Pending Studies at Discharge: Yes Studies:: Final Blood culture results-no growth to date from 05/11/18
[2018-05-16] MEDS ORDERED: ERGOCALCIFEROL 50,000 UNITS CAP PO SCH (09:00)
== END 2018-05-14 19:00 | DRG 871 ==
LOC: ED 13:04 → 4E 13:04 → SUATTDRO 17:19 → 4E 18:37 → SUATTDRO 05-09 11:01